=== PATIENT | male | born 1955 | race Caucasian/White ===

== ENCOUNTER 2016-12-27 07:57 | Outpatient (CLI) | payer MEDICARE, MEDICAID ==
--- NOTE | 2016-12-27 09:59 | XRAY Report ---
TWO VIEW CHEST: 12/27/2016 CLINICAL INDICATION: Hypoxemia, COPD. COMPARISON: 10/06/2016. FINDINGS: Frontal and lateral views of the chest again demonstrate a normal cardiac silhouette. Shaila re emphysema is again seen. No new consolidation, effusion, or pneumothorax is present. IMPRESSION: STABLE EMPHYSEMA. NO EVIDENCE OF ACUTE CARDIOPULMONARY DISEASE. JOB #: [id number] EXT JOB #:[id number]
== END 2016-12-27 07:58 | disposition home or self-care (01) ==
LOC: DI 07:57
PROVIDERS: ATTEND Family Medicine
DX: J43.9 Emphysema, unspecified (principal)
CPT/HCPCS: 71020

== ENCOUNTER 2016-12-28 16:41 | Outpatient (CLI) | payer MEDICARE, MEDICAID | END 2016-12-28 16:42 | disposition EMS.NT | LOC: EMS 16:41 | PROVIDERS: ATTEND Surgery | DX: R07.89 Other chest pain (principal); R42 Dizziness and giddiness; T63.441A Toxic effect of venom of bees, accidental (unintentional), initial encounter ==

== ENCOUNTER 2017-03-09 08:00 | Outpatient (CLI) | payer MEDICARE, MEDICAID ==
[2017-03-09 13:09] LABS: BASOPHILS % (AUTO) 0.2 %; EOSINOPHILS # (AUTO) 0.2 10^3/uL (0.0-0.7); EOSINOPHILS % (AUTO) 1.4 %; HCT - HEMATOCRIT 42.1 % (42.0-52.0); HGB - HEMOGLOBIN 14.3 g/dL (14.0-18.0); LYMPHOCYTES # (AUTO) 3.5 10^3/uL (1.5-3.5); LYMPHOCYTES % (AUTO) 25.7 %; MEAN CORPUSCULAR HEMOGLOBIN 30.2 pg (27.0-31.0); MEAN CORPUSCULAR HGB CONC 33.9 g/dL (32.0-36.0); MEAN CORPUSCULAR VOLUME 89.3 fL (80.0-94.0); MEAN PLATELET VOLUME 6.9 fL (7.4-11.4); MONOCYTES # (AUTO) 1.4 10^3/uL (0.0-1.0); MONOCYTES % (AUTO) 10.6 %; NEUTROPHILS # (AUTO) 8.3 10^3/uL (1.5-6.6); NEUTROPHILS % (AUTO) 62.1 %; NUCLEATED RED BLOOD CELLS AUTO 0.1 /100WBC; RED BLOOD COUNT 4.72 10^6/uL (4.70-6.10); RED CELL DISTRIBUTION WIDTH 14.2 % (12.0-15.0); UNCORRECTED WHITE BLOOD COUNT 13.4 x10^3/uL; WHITE BLOOD COUNT 13.4 x10^3/uL (4.8-10.8)
[2017-03-09 13:16] LABS: ALBUMIN/GLOBULIN RATIO 1.8 (1.0-2.2); BILIRUBIN,TOTAL 0.4 mg/dL (0.2-1.0); CALCIUM 9.5 mg/dL (8.5-10.3); CREATININE 0.8 mg/dL (0.6-1.2)
== END 2017-03-09 08:01 | disposition home or self-care (01) ==
LOC: LAB.WCP 08:00
PROVIDERS: ATTEND Physician Assistant Medical
DX: J44.1 Chronic obstructive pulmonary disease with (acute) exacerbation (principal)
CPT/HCPCS: 36415; 80053; 85025; 87070; 87205

== ENCOUNTER 2017-04-05 10:21 | Outpatient (CLI) | payer MEDICARE, MEDICAID ==
[2017-04-05 10:52] LABS: BASOPHILS % (AUTO) 0.5 %; EOSINOPHILS # (AUTO) 0.1 10^3/uL (0.0-0.7); EOSINOPHILS % (AUTO) 0.6 %; HGB - HEMOGLOBIN 14.3 g/dL (14.0-18.0); LYMPHOCYTES # (AUTO) 1.5 10^3/uL (1.5-3.5); LYMPHOCYTES % (AUTO) 16.9 %; MEAN CORPUSCULAR HEMOGLOBIN 31.1 pg (27.0-31.0); MEAN CORPUSCULAR HGB CONC 34.9 g/dL (32.0-36.0); MEAN PLATELET VOLUME 6.7 fL (7.4-11.4); MONOCYTES # (AUTO) 0.9 10^3/uL (0.0-1.0); MONOCYTES % (AUTO) 10.1 %; NEUTROPHILS # (AUTO) 6.2 10^3/uL (1.5-6.6); NEUTROPHILS % (AUTO) 71.9 %; PLT - PLATELET COUNT 303 10^3/uL (130-450); RED CELL DISTRIBUTION WIDTH 13.8 % (12.0-15.0); WHITE BLOOD COUNT 8.7 x10^3/uL (4.8-10.8)
[2017-04-05 11:21] LABS: ALBUMIN 4.3 g/dL (3.2-5.5); ALBUMIN/GLOBULIN RATIO 1.4 (1.0-2.2); BILIRUBIN,TOTAL 0.6 mg/dL (0.2-1.0); CALCIUM 9.1 mg/dL (8.5-10.3); CREATININE 0.8 mg/dL (0.6-1.2); TOTAL PROTEIN 7.3 g/dL (6.7-8.2)
[2017-04-05] MEDS ORDERED: IOPAMIDOL-300 100 ML VIAL ONE (14:36)
[2017-04-05] MEDS ORDERED: IOPAMIDOL-300 100 ML VIAL IVP ONE (15:07)
--- NOTE | 2017-04-06 09:03 | CT Report ---
REVISED: THIS REPORT WAS ORIGINALLY SIGNED ON 04/06/2017 @ 1249. NO CHANGES WERE MADE TO THE REPORT. THE ORIGINAL [facility] REQUISITION WAS REPRINTED ON 12/2017. DATE OF SERVICE: 04/05/2017 CT ANGIO CHEST: 04/05/2017 COMPARISON: CT angio chest 04/04/2015. INDICATION: Tachycardia, COPD and hypoxemia. Acute exacerbation. TECHNIQUE: Axial imaging of the chest was performed with intravenous contrast bolus imaging of the pulmonary arteries using 75 mL of Isovue 300. Coronal and sagittal reformats. In accordance with CT protocol optimization, one or more of the following dose reduction techniques were utilized for this exam: Automated exposure control, adjustment of mA and/or KV based on patient size, or use of iterative reconstructive technique. FINDINGS: There are severe emphysematous changes of the lungs similar to the prior exam. There is a multilobular mass of the right lower lobe. It is much smaller and less conspicuous than on the prior exam. Two focal elements measure 2.2 x 2.0 cm and 3.0 x 0.7 cm, respectively. This is significantly decreased from multilobular mass on the prior exam with elements measuring up to 3.9 cm. No evidence of aortic dissection or pulmonary embolism. No pericardial effusion. No mediastinal or hilar adenopathy. There is a right adrenal nodule measuring 2.2 x 2.0 cm. This is a stable finding. Limited upper abdomen is otherwise grossly unremarkable. IMPRESSION: No evidence of pulmonary embolism or acute aortic syndrome. Severe emphysematous changes are noted as before. Right lower lobe multilobular mass has much smaller elements and is much less conspicuous than on the prior exam. Correlate clinically. Right adrenal nodule is nonspecific, but stable in size over approximately 2 years. TD: 04/05/2017 21:28 MTDD
== END 2017-04-05 10:22 | disposition home or self-care (01) ==
LOC: DI 10:21
PROVIDERS: ATTEND Physician Assistant Medical
DX: J43.9 Emphysema, unspecified (principal); R91.8 Other nonspecific abnormal finding of lung field
CPT/HCPCS: 36415; 71275; 80053; 85025; Q9967

== ENCOUNTER 2017-04-12 15:48 | Outpatient (CLI) | payer MEDICARE, MEDICAID | END 2017-04-12 15:49 | disposition critical access hospital (66) | LOC: EMS 15:48 | PROVIDERS: ATTEND Surgery | DX: R06.02 Shortness of breath (principal); R11.2 Nausea with vomiting, unspecified; R05 Cough | CPT/HCPCS: A0425; A0429 ==

== ENCOUNTER 2017-05-01 08:50 | Outpatient (CLI) | payer MEDICARE, MEDICAID | END 2017-05-01 08:51 | disposition critical access hospital (66) | LOC: EMS 08:50 | PROVIDERS: ATTEND Surgery | DX: R11.2 Nausea with vomiting, unspecified (principal); R06.02 Shortness of breath | CPT/HCPCS: A0425; A0427 ==

== ENCOUNTER 2017-05-01 09:17 | Emergency (ER) | payer MEDICAID, MEDICARE ==
--- NOTE | 2017-05-01 09:30 | ED Physician Documentation ---
History of Present Illness - Stated complaint Stated Complaint: SOA - Chief complaint Chief Complaint: General - History obtained from History obtained from: Patient, EMS - History of Present Illness Timing: How many days ago (2) - Additonal information Additional information: 61-year-old male with oxygen dependent COPD lives in a small room with a propane open flame heater running. He has developed nausea and vomiting over the past 2 days. He states that he is barely able to move without vomiting. He does not think his cough is changed at all he does not believe his shortness of breath is changed at all. He is on oxygen continuously at home. He has not had any diarrhea he has had a decreased appetite. Review of Systems Constitutional: reports: Myalgias, Fatigue. denies: Fever Eyes: denies: Decreased vision Ears: denies: Ear pain Nose: reports: Congestion. denies: Rhinorrhea / runny nose Throat: denies: Sore throat Cardiac: denies: Chest pain / pressure, Palpitations Respiratory: reports: Dyspnea, Cough GI: reports: Abdominal Pain, Nausea, Vomiting. denies: Diarrhea : denies: Dysuria, Frequency Skin: denies: Rash Musculoskeletal: denies: Neck pain, Back pain, Extremity pain Neurologic: denies: Generalized weakness, Focal weakness, Numbness PD PAST MEDICAL HISTORY - Past Medical History Past Medical History: Yes Cardiovascular: None, High cholesterol Respiratory: COPD Neuro: TIA Endocrine/Autoimmune: None GI: None : None Psych: Depression, Anxiety Musculoskeletal: Chronic back pain, Other Derm: None - Past Surgical History Past Surgical History: Yes - Present Medications Home Medications: Ambulatory Orders Medication Instructions Recorded Confirmed Albuterol Sulfate [Proair Hfa] 8.5 gm IH PRN 04/04/15 04/04/15 Amitriptyline HCl 150 mg PO QPM 04/04/15 04/04/15 Azithromycin [Zithromax] 250 mg PO DAILY #6 tablet 04/04/15 Budesonide/Formoterol Fumarate 1 inh INH DAILY 04/04/15 04/04/15 [Symbicort 160-4.5 Mcg Inhaler] Carisoprodol 350 mg PO Q6H 04/04/15 04/04/15 Escitalopram [Lexapro] 20 mg PO DAILY 04/04/15 04/04/15 Eszopiclone 3 mg PO PRN 04/04/15 04/04/15 Gabapentin 600 mg PO BID 04/04/15 04/04/15 Hydrocodone/Acetaminophen 1 tab PO PRN 04/04/15 04/04/15 [Hydrocodon-Acetaminoph 7.5-325] Quetiapine Fumarate [Seroquel Xr] 50 mg PO DAILY 04/04/15 04/04/15 Simvastatin 20 mg PO QPM 04/04/15 04/04/15 Tiotropium [place] [Spiriva] 18 mcg IH DAILY 04/04/15 04/04/15 LORazepam [Ativan] 0.5 mg PO Q6H PRN #7 tablet 04/12/17 predniSONE [Prednisone] 40 mg PO DAILY #10 tablet 04/12/17 Lorazepam [Ativan] 1 mg PO Q6HR PRN #20 tablet 05/01/17 Ondansetron Odt [Zofran] 4 mg TL Q6H PRN #10 tablet 05/01/17 - Allergies Allergies/Adverse Reactions: Allergies Allergy/AdvReac Type Severity Reaction Status Date / Time No Known Drug Allergies Allergy Verified 04/04/15 06:20 - Social History Does the pt smoke?: No Smoking Status: Never smoker Does the pt drink ETOH?: No Does the pt have substance abuse?: No - Immunizations Immunizations are current?: Yes - POLST Patient has POLST: No PD ED PE NORMAL - Vitals Vital signs reviewed: Yes (tachy and hypertensive ) - General General: Alert and oriented X 3, Well developed/nourished, Other (The patient has n/c oxygen in place and is doing persed lipped breathing. ) - HEENT HEENT: Atraumatic, PERRL, EOMI, Ears normal, Other (mucous membranes are dry) - Neck Neck: Supple, no meningeal sign - Cardiac Cardiac: No murmur, Other (tachy to 110) - Respiratory Respiratory: Other (tachypneic at rest with diminished breath sounds bilaterally. ) - Abdomen Abdomen: Soft, Non tender - Back Back: No CVA TTP, No spinal TTP - Derm Derm: Normal color, Warm and dry, No rash - Extremities Extremities: No deformity, No edema - Neuro Neuro: No motor deficit, No sensory deficit Eye Opening: Spontaneous Motor: Obeys Commands Verbal: Oriented GCS Score: 15 - Psych Psych: Normal mood, Normal affect Results - Vitals Vitals: Vital Signs - 24 hr 05/01/17 05/01/17 05/01/17 09:21 11:03 12:24 Temperature 36.9 C Heart Rate 107 H 102 H 94 Respiratory 20 18 14 Rate Blood Pressure 150/99 H 118/81 H 116/78 O2 Saturation 100 98 100 Oxygen O2 Source Nasal cannula - Labs Labs: Laboratory Tests 05/01/17 05/01/17 05/01/17 10:08 10:08 10:08 WBC 7.0 RBC 4.24 L Hgb 13.1 L Hct 37.7 L MCV 89.1 MCH 30.9 MCHC 34.7 RDW 14.2 Plt Count 258 MPV 6.5 L Neut # 4.3 Lymph # 1.7 Kay # 0.8 Eos # 0.1 Baso # 0.0 Absolute Nucleated RBC 0.00 Nucleated RBC % 0.0 VBG Total Hgb VBG Oxyhemoglobin VBG Carboxyhemoglobin VBG Methemoglobin Sodium 138 Potassium 4.1 Chloride 104 Carbon Dioxide 24 Anion Gap 10.0 BUN 11 Creatinine 0.8 Estimated GFR (MDRD) 99 Glucose 88 Calcium 8.5 Total Bilirubin 0.7 AST 22 ALT 18 Alkaline Phosphatase 36 L Troponin I < 0.04 Total Protein 6.3 L Albumin 3.9 Globulin 2.4 Albumin/Globulin Ratio 1.6 Lipase 22 Influenza A (Rapid) Influenza B (Rapid) Influenza Types A,B Ag 05/01/17 05/01/17 10:08 10:43 WBC RBC Hgb Hct MCV MCH MCHC RDW Plt Count MPV Neut # Lymph # Kay # Eos # Baso # Absolute Nucleated RBC Nucleated RBC % VBG Total Hgb 13.7 VBG Oxyhemoglobin 59 L VBG Carboxyhemoglobin 1.4 VBG Methemoglobin 0.3 Sodium Potassium Chloride Carbon Dioxide Anion Gap BUN Creatinine Estimated GFR (MDRD) Glucose Calcium Total Bilirubin AST ALT Alkaline Phosphatase Troponin I Total Protein Albumin Globulin Albumin/Globulin Ratio Lipase Influenza A (Rapid) NEG Influenza B (Rapid) NEG Influenza Types A,B Ag - Procedures - IVC sono (time) 6573 Bedside IVC sono: IVC measures (cm) (1.12), IVC collapsed c insp (cm) (complete) , Dehydration (est 1.5 liters) PD MEDICAL DECISION MAKING - ED course Complexity details: reviewed old records, reviewed results, re-evaluated patient , considered differential, d/w patient ED course: 61-year-old male oxygen dependent COPD with acute vomiting and dehydration is brought to the emergency department by ambulance and IV saline is begun. He feels much improved after a liter of saline and some Zofran. We will send him home with some Zofran and instructions on dehydration and gastroenteritis. Today's visit was not related to lung disease. Departure - Departure Disposition: Home, Self Care Clinical Impression: Dehydration, Gastroenteritis, Anxiety Condition: Stable Instructions: ED Stress React, ED Dehydration, ED Gastroenteritis Viral Follow-Up: Antonio Boles MD [Primary Care Provider] - Prescriptions: Lorazepam [Ativan] 1 mg PO Q6HR PRN #20 tablet PRN Reason: Anxiety Ondansetron Odt [Zofran] 4 mg TL Q6H PRN #10 tablet PRN Reason: Nausea / Vomiting Discharge Date/Time: 05/01/17 15:34
[2017-05-01] MEDS ORDERED: SODIUM CHLORIDE 0.9% 1,000 ML IV ONE (09:36)
--- NOTE | 2017-05-01 10:12 | XRAY Report ---
EXAM: CHEST RADIOGRAPHY EXAM DATE: 05/01/2017 10:01 AM. CLINICAL HISTORY: Diminished breath sounds/dyspnea. COMPARISON: 04/12/2017 TECHNIQUE: 2 views. FINDINGS: Lungs/Pleura: No focal opacities evident. No pleural effusion. No pneumothorax. Hyperexpanded volumes . Mediastinum: Heart and mediastinal contours are unremarkable. Other: Flattening of the hemidiaphragms. No acute bony pathology. IMPRESSION: Stable emphysematous changes of the lungs without superimposed acute findings. [facility] Referring Provider Line: [phone] SITE ID: [id number]
[2017-05-01 10:19] LABS: BASOPHILS % (AUTO) 0.6 %; EOSINOPHILS # (AUTO) 0.1 10^3/uL (0.0-0.7); EOSINOPHILS % (AUTO) 1.4 %; HGB - HEMOGLOBIN 13.1 g/dL (14.0-18.0); LYMPHOCYTES # (AUTO) 1.7 10^3/uL (1.5-3.5); LYMPHOCYTES % (AUTO) 24.9 %; MEAN CORPUSCULAR HEMOGLOBIN 30.9 pg (27.0-31.0); MEAN CORPUSCULAR HGB CONC 34.7 g/dL (32.0-36.0); MEAN CORPUSCULAR VOLUME 89.1 fL (80.0-94.0); MEAN PLATELET VOLUME 6.5 fL (7.4-11.4); MONOCYTES # (AUTO) 0.8 10^3/uL (0.0-1.0); MONOCYTES % (AUTO) 11.5 %; NEUTROPHILS # (AUTO) 4.3 10^3/uL (1.5-6.6); NEUTROPHILS % (AUTO) 61.6 %; PLT - PLATELET COUNT 258 10^3/uL (130-450); RED BLOOD COUNT 4.24 10^6/uL (4.70-6.10); RED CELL DISTRIBUTION WIDTH 14.2 % (12.0-15.0)
[2017-05-01] MEDS ORDERED: LORazepam 2 MG/ML VIAL IVP STA (10:23)
[2017-05-01 10:31] LABS: ALBUMIN 3.9 g/dL (3.2-5.5); ALBUMIN/GLOBULIN RATIO 1.6 (1.0-2.2); BILIRUBIN,TOTAL 0.7 mg/dL (0.2-1.0); CALCIUM 8.5 mg/dL (8.5-10.3); CREATININE 0.8 mg/dL (0.6-1.2); TOTAL PROTEIN 6.3 g/dL (6.7-8.2)
[2017-05-01 12:26] VITALS: BP 116/78
[2017-05-01] MEDS ORDERED: ONDANSETRON ODT 4 MG TABLET TL STA (13:15)
== END 2017-05-01 15:34 | disposition home or self-care (01) ==
LOC: EDUNIT# → ED 09:17
DX: E86.0 Dehydration (principal); K52.9 Noninfective gastroenteritis and colitis, unspecified; F41.9 Anxiety disorder, unspecified; J44.9 Chronic obstructive pulmonary disease, unspecified; Z99.81 Dependence on supplemental oxygen; E78.5 Hyperlipidemia, unspecified
CPT/HCPCS: 36415; 71046; 80053; 82375; 83690; 84484; 85025; 87275; 87276; 96361; 96374; 99284; J2060; Q0162

== ENCOUNTER 2017-05-10 12:25 | Day surgery (SDC) | payer MEDICARE, MEDICAID ==
[2017-05-10] MEDS ORDERED: LACTATED RINGERS 1,000 ML IV ONE (13:24)
[2017-05-10] MEDS ORDERED: LIDOCAINE-MPF 2% 5 ML VIAL IM ONE (14:05)
[2017-05-10] MEDS ORDERED: PROPOFOL 200 MG/20 ML VIAL IVP ONE (14:05)
[2017-05-10 14:11] VITALS: BP 112/75
== END 2017-05-10 12:26 | disposition home or self-care (01) ==
LOC: SDS 12:25
PROVIDERS: ATTEND Surgery
PROC: 0DBN8ZZ Excision of Sigmoid Colon, Via Natural or Artificial Opening Endoscopic (ICD-10-PCS; 2017-05-10)
PROC: 0DBK8ZZ Excision of Ascending Colon, Via Natural or Artificial Opening Endoscopic (ICD-10-PCS; principal; 2017-05-10 14:00)
DX: Z12.11 Encounter for screening for malignant neoplasm of colon (principal); D12.2 Benign neoplasm of ascending colon; D12.5 Benign neoplasm of sigmoid colon; K57.30 Diverticulosis of large intestine without perforation or abscess without bleeding; K64.8 Other hemorrhoids; J44.9 Chronic obstructive pulmonary disease, unspecified; Z99.81 Dependence on supplemental oxygen; Z87.891 Personal history of nicotine dependence; E78.5 Hyperlipidemia, unspecified
CPT/HCPCS: 45380; J7120

== ENCOUNTER 2017-05-29 08:20 | Outpatient (CLI) | payer MEDICARE, MEDICAID | END 2017-05-29 08:21 | disposition home or self-care (01) | LOC: DI 08:20 | PROVIDERS: ATTEND Physician Assistant Medical | DX: R00.0 Tachycardia, unspecified (principal) | CPT/HCPCS: 93306 ==

== ENCOUNTER 2017-06-21 07:36 | Outpatient (CLI) | payer MEDICARE, MEDICAID ==
--- NOTE | 2017-06-21 10:54 | MRI Report ---
EXAM: MRI CERVICAL SPINE WITHOUT CONTRAST EXAM DATE: 06/21/2017 08:33 AM. CLINICAL HISTORY: Cervical disk disorder with radiculopathy. COMPARISONS: None. TECHNIQUE: Multiplanar, multisequence T1-weighted and fluid-sensitive sequences of the cervical spine without contrast. Other: None. FINDINGS: Neurologic Structures: The visualized posterior fossa structures are unremarkable. No signal abnormal ity in the visualized spinal cord. Alignment: There is flattening of the cervical lordosis. Bone Marrow: No gross fractures or bone lesions. No marrow edema. Interspace Levels/Facets: C1-C2: Unremarkable. C2-C3: Moderate right and mild left facet joint osteoarthritis. The foramina are patent. C3-C4: There is disk desiccation and loss of disk height. There is a broad-based posterior disk osteo phyte complex causing mild canal narrowing. There is minimal facet joint osteoarthritis. There is min imal bilateral foraminal narrowing. C4-C5: There is a broad-based posterior disk bulge with minimal facet joint osteoarthritis. The findi ngs cause minimal canal and foraminal narrowing. C5-C6: Disk desiccation and loss of disk height. There is a broad-based posterior disk osteophyte com plex. There is mild central canal narrowing, and moderate bilateral foraminal narrowing. C6-C7: There is disk desiccation and loss of disk height. There is a broad-based posterior discussed heart complex causing mild canal narrowing. There is mild bilateral foraminal narrowing. C7-T1: Unremarkable. Musculature: Normal. No edema or fatty atrophy. Other: The paravertebral and prevertebral soft tissues are normal. IMPRESSION: 1. Moderate degenerative change throughout the cervical spine. 2. Flattening of the cervical lordosis. 3. C2-C3: Moderate right and mild left facet joint osteoarthritis. The foramina are patent. 4. C3-C4: There is a broad-based posterior disk osteophyte complex causing mild canal narrowing. Ther e is minimal facet joint osteoarthritis. There is minimal bilateral foraminal narrowing. 5. C4-C5: There is a broad-based posterior disk bulge with minimal facet joint osteoarthritis. The fi ndings cause minimal canal and foraminal narrowing. 6. C5-C6: There is a broad-based posterior disk osteophyte complex. There is mild central canal narro wing, and moderate bilateral foraminal narrowing. 7. C6-C7: There is a broad-based posterior discussed heart complex causing mild canal narrowing. Ther e is mild bilateral foraminal narrowing. [facility] Referring Provider Line: [phone] SITE ID: [id number]
== END 2017-06-21 07:37 | disposition home or self-care (01) ==
LOC: DI 07:36
PROVIDERS: ATTEND Family Medicine
DX: M47.892 Other spondylosis, cervical region (principal); M50.31 Other cervical disc degeneration, high cervical region
CPT/HCPCS: 72141

== ENCOUNTER 2017-07-16 07:40 | Outpatient (CLI) | payer MEDICARE, MEDICAID ==
--- NOTE | 2017-07-16 09:28 | Ultrasound Report ---
COMPLETE ABDOMINAL ULTRASOUND: 07/16/2017 CLINICAL INDICATION: Right-sided pain. TECHNIQUE: Real-time scanning was performed with security representative static images obtained. FINDINGS: The liver measures 12.3 cm. An 8 mm cyst is incidentally noted in the left lobe. No solid hepatic lesion or intrahepatic biliary dilatation is appreciated. The common bile duct measures 7 mm. The gallbladder is normal, as is the visualized pancreas. The right kidney measures 10.3 cm, and is unremarkable. The left kidney measures 10.2 cm , and demonstrates an 1.6 cm complex cyst, stable from previous CTs of 04/05/2017 and 04/04/2015. The spleen measures 8.2 cm, and is unremarkable. The abdominal aorta is normal in caliber. The inferior vena cava is unremarkable. Scanning of the right lower quadrant, at the site of maximal tenderness identified by the patient, demonstrates unremarkable bowel. IMPRESSION: INCIDENTAL CYSTS. TD: 07/16/2017 09:27 HOMERO
== END 2017-07-16 07:41 | disposition home or self-care (01) ==
LOC: DI 07:40
PROVIDERS: ATTEND Physician Assistant Medical
DX: R10.31 Right lower quadrant pain (principal)
CPT/HCPCS: 76700

== ENCOUNTER 2017-09-05 11:01 | Outpatient (CLI) | payer MEDICARE, MEDICAID ==
[2017-09-05 18:10] LABS: ALBUMIN 4.1 g/dL (3.2-5.5); ALBUMIN/GLOBULIN RATIO 1.4 (1.0-2.2); BILIRUBIN,TOTAL 0.6 mg/dL (0.2-1.0); CALCIUM 8.9 mg/dL (8.5-10.3); CREATININE 0.8 mg/dL (0.6-1.2); MAGNESIUM 2.1 mg/dL (1.7-2.8)
== END 2017-09-05 11:02 | disposition home or self-care (01) ==
LOC: LAB.F 11:01
PROVIDERS: ATTEND Physician Assistant Medical
DX: R25.2 Cramp and spasm (principal)
CPT/HCPCS: 36415; 80053; 83735

== ENCOUNTER 2017-10-30 08:57 | Outpatient (CLI) | payer MEDICARE, MEDICAID ==
--- NOTE | 2017-10-30 18:08 | MRI Report ---
Procedure Date: 10/30/2017 Accession Number: [id number] / [id number] Procedure: MRI - Brain W/O CPT Code: FULL RESULT: EXAM: MRI BRAIN WITHOUT CONTRAST EXAM DATE: 10/30/2017 10:03 AM. CLINICAL HISTORY: TIA, headache. COMPARISON: None. TECHNIQUE: Multiplanar, multisequence T1-weighted and fluid-sensitive MR sequences of the brain were performed. Sequences optimized for routine evaluation. Other: None. IV Contrast: None. FINDINGS: No cerebellar tonsillar ectopia is present. No abnormal diffusion signal or magnetic susceptibility is identified in the brain parenchyma. Ventricles and sulci are within normal limits for the patient's age. There is patchy FLAIR hyperintense signal in the right greater than left gage. Subcortical and deep white matter FLAIR hyperintensities are seen scattered throughout the cerebral hemisphere white matter. There is a frontal lobe predominance. An expected flow-void is seen in the major intracranial vessels at the skull base. An expected flow-void is seen in the superior sagittal sinus. No mass is present in either orbit. No mass is present in either Meckel's cave. No abnormal T1 shortening is present within the brain parenchyma. There are areas of T2 and T1 hyperintense signal involving mastoid air cells posteriorly on the left. There is no bony expansion to suggest cholesterol granuloma formation. This could reflect proteinaceous material in these left mastoid air cells. Paranasal sinus mucosal thickening is seen, greatest in the right sphenoid air cell. IMPRESSION: 1. FLAIR hyperintensities are seen in the cerebral hemisphere white matter bilaterally and in the gage. These are nonspecific and are commonly seen secondary to small vessel ischemic change. 2. No intracranial mass. 3. No acute CVA is present on diffusion weighted images. 4. Paranasal sinus mucosal thickening is seen in scattered paranasal sinuses, greatest in the right sphenoid air cell. 5. Suspect proteinaceous material in mastoid air cells on the left. [facility]
== END 2017-10-30 08:58 | disposition home or self-care (01) ==
LOC: DI 08:57
PROVIDERS: ATTEND Physician Assistant Medical
DX: G45.9 Transient cerebral ischemic attack, unspecified (principal); R51 Headache
CPT/HCPCS: 70551

== ENCOUNTER 2017-11-23 14:08 | Outpatient (CLI) | payer MEDICARE, MEDICAID ==
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
== END 2017-11-23 14:09 | disposition home or self-care (01) ==
LOC: PC 14:08
PROVIDERS: ATTEND Nurse Practitioner
DX: Z51.5 Encounter for palliative care (principal); J44.9 Chronic obstructive pulmonary disease, unspecified; G89.4 Chronic pain syndrome; M51.86 Other intervertebral disc disorders, lumbar region; R25.2 Cramp and spasm; F41.9 Anxiety disorder, unspecified; R63.0 Anorexia; R63.4 Abnormal weight loss; R68.81 Early satiety; F51.04 Psychophysiologic insomnia; F32.9 Major depressive disorder, single episode, unspecified; M50.10 Cervical disc disorder with radiculopathy, unspecified cervical region; F19.11 Other psychoactive substance abuse, in remission; Z79.899 Other long term (current) drug therapy; Z99.81 Dependence on supplemental oxygen; Z79.51 Long term (current) use of inhaled steroids; Z79.891 Long term (current) use of opiate analgesic; Z66 Do not resuscitate; Z86.73 Personal history of transient ischemic attack (TIA), and cerebral infarction without residual deficits; Z87.891 Personal history of nicotine dependence
CPT/HCPCS: 99345

== ENCOUNTER 2017-12-03 11:10 | Emergency (ER) | payer MEDICARE, MEDICAID ==
--- NOTE | 2017-12-03 12:16 | XRAY Report ---
Reason: injury/pain Procedure Date: 12/03/2017 Accession Number: [id number] / [id number] Procedure: XR - Foot 3 View RT CPT Code: FULL RESULT: EXAM: RIGHT FOOT RADIOGRAPHY EXAM DATE: 12/03/2017 11:46 AM. CLINICAL HISTORY: Injury/pain. COMPARISON: None available. TECHNIQUE: 3 views. FINDINGS: Bones: There is a linear lucency through the mid shaft of the proximal phalanx of the small toe. Joints: Normal. No subluxations. Soft Tissues: Normal. No soft tissue swelling. IMPRESSION: Nondisplaced fracture through the midshaft of the small toe proximal phalanx. RADIA
[2017-12-03] MEDS ORDERED: HYDROcod/ACETAM 5/325 MG TABLET PO STA (12:26)
[2017-12-03] MEDS ORDERED: LORazepam 0.5 MG TABLET PO STA (12:27)
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
[2017-12-03 12:53] VITALS: BP 121/86
== END 2017-12-03 12:48 | disposition home or self-care (01) ==
LOC: ED 11:10
DX: S92.514A Nondisplaced fracture of proximal phalanx of right lesser toe(s), initial encounter for closed fracture (principal); Z87.891 Personal history of nicotine dependence; W20.8XXA Other cause of strike by thrown, projected or falling object, initial encounter; Y93.A1 Activity, exercise machines primarily for cardiorespiratory conditioning
CPT/HCPCS: 73630; 99283; A9270

== ENCOUNTER 2018-01-04 08:00 | Outpatient (CLI) | payer MEDICARE, MEDICAID | END 2018-01-04 08:01 | disposition home or self-care (01) | LOC: LAB.R 08:00 | PROVIDERS: ATTEND Physician Assistant Medical | DX: L02.91 Cutaneous abscess, unspecified (principal) | CPT/HCPCS: 87070; 87205 ==

== ENCOUNTER 2018-01-09 17:24 | Outpatient (CLI) | payer MEDICARE, MEDICAID ==
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
== END 2018-01-09 17:25 | disposition home or self-care (01) ==
LOC: PC 17:24
PROVIDERS: ATTEND Nurse Practitioner
DX: Z51.5 Encounter for palliative care (principal); J44.9 Chronic obstructive pulmonary disease, unspecified; Z99.81 Dependence on supplemental oxygen; R53.81 Other malaise; G89.29 Other chronic pain; M54.5 Low back pain; F41.9 Anxiety disorder, unspecified; R63.0 Anorexia; G47.00 Insomnia, unspecified; R25.2 Cramp and spasm; M20.092 Other deformity of left finger(s); Z66 Do not resuscitate
CPT/HCPCS: 99348

== ENCOUNTER 2018-02-22 14:50 | Outpatient (CLI) | payer MEDICARE, MEDICAID ==
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
== END 2018-02-22 14:51 | disposition home or self-care (01) ==
LOC: PC 14:50
PROVIDERS: ATTEND Nurse Practitioner
DX: Z51.5 Encounter for palliative care (principal); J44.9 Chronic obstructive pulmonary disease, unspecified; Z99.81 Dependence on supplemental oxygen; R53.81 Other malaise; R06.00 Dyspnea, unspecified; F32.9 Major depressive disorder, single episode, unspecified; F41.9 Anxiety disorder, unspecified; G89.29 Other chronic pain; M54.5 Low back pain; R63.0 Anorexia; F51.04 Psychophysiologic insomnia; Z66 Do not resuscitate
CPT/HCPCS: 99348

== ENCOUNTER 2018-03-18 10:57 | Outpatient (CLI) | payer MEDICARE, MEDICAID | END 2018-03-18 10:58 | disposition home or self-care (01) | LOC: LAB.F 10:57 | PROVIDERS: ATTEND Physician Assistant Medical | DX: R53.83 Other fatigue (principal); F41.8 Other specified anxiety disorders | CPT/HCPCS: 36415; 84443 ==

== ENCOUNTER 2018-04-18 10:20 | Outpatient (CLI) | payer MEDICARE, MEDICAID ==
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
== END 2018-04-18 10:21 | disposition home or self-care (01) ==
LOC: PC 10:20
PROVIDERS: ATTEND Nurse Practitioner
DX: Z51.5 Encounter for palliative care (principal); J44.9 Chronic obstructive pulmonary disease, unspecified; Z99.81 Dependence on supplemental oxygen; F41.8 Other specified anxiety disorders; G89.29 Other chronic pain; M50.10 Cervical disc disorder with radiculopathy, unspecified cervical region; M54.5 Low back pain; F51.04 Psychophysiologic insomnia; R25.2 Cramp and spasm; R26.9 Unspecified abnormalities of gait and mobility; Z66 Do not resuscitate; Z79.891 Long term (current) use of opiate analgesic; Z79.51 Long term (current) use of inhaled steroids; Z87.828 Personal history of other (healed) physical injury and trauma
CPT/HCPCS: 99349

== ENCOUNTER 2018-05-27 12:15 | Outpatient (CLI) | payer MEDICARE, MEDICAID ==
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
== END 2018-05-27 12:16 | disposition home or self-care (01) ==
LOC: PC 12:15
PROVIDERS: ATTEND Nurse Practitioner
DX: Z51.5 Encounter for palliative care (principal); J44.9 Chronic obstructive pulmonary disease, unspecified; F41.8 Other specified anxiety disorders; T40.4X1A Poisoning by other synthetic narcotics, accidental (unintentional), initial encounter; G89.4 Chronic pain syndrome; M54.5 Low back pain; T14.90XS Injury, unspecified, sequela; M62.838 Other muscle spasm; F51.04 Psychophysiologic insomnia; M50.10 Cervical disc disorder with radiculopathy, unspecified cervical region; Z99.81 Dependence on supplemental oxygen; Z87.01 Personal history of pneumonia (recurrent); Z66 Do not resuscitate; Z79.899 Other long term (current) drug therapy
CPT/HCPCS: 99350

== ENCOUNTER 2018-06-03 14:00 | Outpatient (CLI) | payer MEDICARE, MEDICAID ==
--- NOTE | 2018-06-03 15:29 | XRAY Report ---
Reason: COUGH, SHORTNESS OF BREATH Procedure Date: 06/03/2018 Accession Number: [id number] / [id number] Procedure: XR - Chest 2 View X-Ray CPT Code: 04673 FULL RESULT: EXAM: CHEST RADIOGRAPHY EXAM DATE: 06/03/2018 03:15 PM. CLINICAL HISTORY: COUGH, SHORTNESS OF BREATH. COMPARISON: CHEST 2 VIEW 05/01/2017 9:41 AM. TECHNIQUE: 2 views. FINDINGS: Lungs/Pleura: No focal opacities evident. No pleural effusion. No pneumothorax. High lung volumes and flattening of diaphragms with a paucity of overall lung markings, typical of COPD. Mediastinum: Heart and mediastinal contours are unremarkable. Other: None. IMPRESSION: Appearance suggestive of COPD likely with bullous disease. Loss of lung parenchyma in this clinical setting decreases sensitivity for pneumonia. RADIA
== END 2018-06-03 14:01 | disposition home or self-care (01) ==
LOC: DI 14:00
PROVIDERS: ATTEND Physician Assistant Medical
DX: R05 Cough (principal); R06.02 Shortness of breath; R91.8 Other nonspecific abnormal finding of lung field
CPT/HCPCS: 71046

== ENCOUNTER 2018-06-22 13:59 | Emergency (ER) | payer MEDICARE, MEDICAID ==
[2018-06-22] MEDS ORDERED: cefTRIAXone 1 GM in SODIUM CHLORIDE 0.9% MINIBAG 100 ML IV STA (14:11)
[2018-06-22] MEDS ORDERED: methylPREDNISolone SUCCINATE 125 MG/2 ML VIAL IVP STA (14:11)
[2018-06-22] MEDS ORDERED: IPRATROPIUM/ALBUTEROL 3 ML NEB INH STA (14:11)
--- NOTE | 2018-06-22 14:14 | ED Physician Documentation ---
PD HPI DYSPNEA - Stated complaint Stated Complaint: SOA - Chief complaint Chief Complaint: Resp - History obtained from History obtained from: Patient - History of Present Illness Timing - onset: Last night (62-year-old gentleman with history of severe COPD presents with increased work of breathing and fever since last night with a cough productive of green sputum. Denies body aches. No recent travel. He is on oxygen at home and takes nebulizers at home which have not been helping.) Review of Systems Constitutional: reports: Fever, Chills Nose: denies: Rhinorrhea / runny nose Cardiac: denies: Chest pain / pressure Respiratory: reports: Dyspnea, Cough PD PAST MEDICAL HISTORY - Past Medical History Cardiovascular: None, High cholesterol, Arrhythmia Respiratory: COPD, Shortness of breath Endocrine/Autoimmune: None GI: None : None HEENT: Chronic sinusitis Psych: Depression, Anxiety Musculoskeletal: Chronic back pain, Other (Chronic muscle spasms in hands. Cervical disc disorder with radiculopathy.) Derm: None - Past Surgical History Past Surgical History: Yes - Present Medications Home Medications: Ambulatory Orders Medication Instructions Recorded Confirmed Budesonide/Formoterol Fumarate 10.2 gm IH BID 05/09/17 05/27/18 [Symbicort 160-4.5 Mcg Inhaler] Tamsulosin [Flomax] 0.8 mg PO DAILY 05/09/17 05/27/18 Albuterol 3 ml INH .4-5 TIMES/DAY PRN 11/23/17 05/27/18 Albuterol Sulf [Ventolin Hfa 1 - 2 puffs INH Q4HR PRN 11/23/17 05/27/18 Inhaler] Atorvastatin Calcium 20 mg PO QPM 11/23/17 05/27/18 Lactose-Reduced Food [Ensure 1 bottle PO DAILY 11/23/17 05/27/18 Compact] Polyethylene Glycol 3350 [Miralax] 0.25 - 1 cap PO DAILY PRN MDD 1/4 11/23/17 05/27/18 to 1 capful daily Ramelteon [Rozerem] 8 mg PO .QHS 11/23/17 05/27/18 Trazodone HCl 100 mg PO .QPM PRN 11/23/17 05/27/18 Carisoprodol [Soma] 350 mg PO QID 01/09/18 05/27/18 Amitriptyline HCl 150 mg PO DAILY MDD 3: On-going 04/18/18 05/27/18 Azithromycin 250 mg PO .EVERY M,W,F 05/27/18 05/27/18 Guaifenesin [Guaifenesin ER] 1,200 mg PO DAILY 05/27/18 05/27/18 Umeclidinium [place] [Incruse 62.5 mcg PO DAILY 05/27/18 05/27/18 Ellipta] fentaNYL 12 MCG PATCH [Duragesic 12 mcg TD .Q72H 05/27/18 05/27/18 12mcg patch] fentaNYL 50 MCG PATCH [Duragesic 50 mcg TD .Q72H 05/27/18 05/27/18 50mcg patch] predniSONE [Prednisone] 10 mg PO DAILY MDD until tabs run 05/27/18 05/27/18 out predniSONE [Prednisone] 20 mg PO DAILY MDD for 3 days, 05/27/18 05/27/18 then 10mg predniSONE [Prednisone] 30 mg PO DAILY MDD for 3 days, 05/27/18 05/27/18 then 20mg predniSONE [Prednisone] 40 mg PO DAILY MDD for 3 days then 05/27/18 05/27/18 30mg predniSONE [Prednisone] 50 mg PO DAILY MDD for 3 days, 05/27/18 05/27/18 then 40mg predniSONE [Prednisone] 60 mg PO DAILY MDD for 3 days, 05/27/18 05/27/18 then 50mg Doxycycline Hyclate 100 mg PO BID #14 capsule 06/22/18 predniSONE [Deltasone] 20 mg PO [id number] #21 tab 06/22/18 - Allergies Allergies/Adverse Reactions: Allergies Allergy/AdvReac Type Severity Reaction Status Date / Time No Known Drug Allergies Allergy Verified 06/22/18 14:04 - Social History Does the pt smoke?: No Smoking Status: Former smoker Does the pt drink ETOH?: No Does the pt have substance abuse?: No - Family History Family history: reports: Non contributory - Immunizations Immunizations are current?: Yes - POLST Patient has POLST: Yes PD ED PE NORMAL - Vitals Vital signs reviewed: Yes - General General: Alert and oriented X 3, Other (He is tachypneic but speaking in full sentences) - HEENT HEENT: PERRL, EOMI - Neck Neck: Supple, no meningeal sign, No bony TTP - Cardiac Cardiac: RRR, No murmur - Respiratory Respiratory: Other (Loud rhonchorous breath sounds and slightly diminished at the bases) - Abdomen Abdomen: Soft, Non tender - Back Back: No CVA TTP, No spinal TTP - Derm Derm: Normal color, Warm and dry - Extremities Extremities: No edema, No calf tenderness / cord - Neuro Neuro: Alert and oriented X 3, Normal speech - Psych Psych: Normal mood, Normal affect Results - Vitals Vitals: Vital Signs - 24 hr 06/22/18 06/22/18 06/22/18 14:02 14:17 14:36 Temperature 37.6 C H Heart Rate 122 H 104 H Respiratory 30 H 22 Rate Blood Pressure 120/102 H O2 Saturation 95 06/22/18 06/22/18 14:47 15:20 Temperature Heart Rate 102 H 102 H Respiratory 20 22 Rate Blood Pressure 101/69 O2 Saturation 100 Oxygen O2 Source Nasal cannula Oxygen Flow Rate 3 - EKG (time done) 1408 Rate: Rate (enter#) (118) Rhythm: Sinus tachycardia [place]: Normal Intervals: Other (LAFB) Ischemia: Non specific changes. No: ST elevation c/w ischemia Computer interpretation: Agree with computer - Labs Labs: Laboratory Tests 06/22/18 06/22/18 06/22/18 14:15 14:15 14:15 WBC 9.6 RBC 4.46 L Hgb 13.8 L Hct 40.9 L MCV 91.8 MCH 30.9 MCHC 33.7 RDW 14.5 Plt Count 299 MPV 6.6 L Neut # (Auto) 6.7 H Lymph # (Auto) 1.5 [place] # (Auto) 1.3 H Eos # (Auto) 0.1 Baso # (Auto) 0.1 Absolute Nucleated RBC 0.00 Nucleated RBC % 0.0 Sodium 134 L Potassium 4.0 Chloride 97 L Carbon Dioxide 22 Anion Gap 15.0 H BUN 10 Creatinine 0.8 Estimated GFR (MDRD) 98 Glucose 83 Lactic Acid 1.3 Calcium 9.2 Total Bilirubin 1.0 AST 21 ALT 17 Alkaline Phosphatase 51 Total Protein 7.5 Albumin 4.5 Globulin 3.0 Albumin/Globulin Ratio 1.5 Lipase 23 Influenza A (Rapid) Influenza B (Rapid) 06/22/18 14:30 WBC RBC Hgb Hct MCV MCH MCHC RDW Plt Count MPV Neut # (Auto) Lymph # (Auto) [place] # (Auto) Eos # (Auto) Baso # (Auto) Absolute Nucleated RBC Nucleated RBC % Sodium Potassium Chloride Carbon Dioxide Anion Gap BUN Creatinine Estimated GFR (MDRD) Glucose Lactic Acid Calcium Total Bilirubin AST ALT Alkaline Phosphatase Total Protein Albumin Globulin Albumin/Globulin Ratio Lipase Influenza A (Rapid) Negative Influenza B (Rapid) Negative - Rads (name of study) 1v chest Radiology: EMP read contemporaneously (hyperinflation) PD MEDICAL DECISION MAKING - ED course ED course: This is a 62-year-old gentleman with severe COPD who presents with apparent exacerbation of same. After the first neb he was looking much more comfortable and breathing much easier. He was also given Rocephin and steroids via IV. A couple more nebs and he felt back to normal pretty much. Departure - Departure Disposition: 01 Home, Self Care Clinical Impression: COPD with exacerbation Condition: Good Record reviewed to determine appropriate education?: Yes Instructions: ED COPD Flare Prescriptions: Doxycycline Hyclate 100 mg PO BID #14 capsule predniSONE [Deltasone] 20 mg PO [id number] #21 tab Comments: Call your doctor to arrange a follow-up appointment, make the next available appointment. In the interim, return anytime if worse or if new symptoms develop.
[2018-06-22 14:32] LABS: BASOPHILS # (AUTO) 0.1 10^3/uL (0.0-0.1); BASOPHILS % (AUTO) 0.6 %; EOSINOPHILS # (AUTO) 0.1 10^3/uL (0.0-0.7); EOSINOPHILS % (AUTO) 0.7 %; HGB - HEMOGLOBIN 13.8 g/dL (14.0-18.0); LYMPHOCYTES # (AUTO) 1.5 10^3/uL (1.5-3.5); LYMPHOCYTES % (AUTO) 15.6 %; MEAN CORPUSCULAR HEMOGLOBIN 30.9 pg (27.0-31.0); MEAN CORPUSCULAR HGB CONC 33.7 g/dL (32.0-36.0); MEAN CORPUSCULAR VOLUME 91.8 fL (80.0-94.0); MEAN PLATELET VOLUME 6.6 fL (7.4-11.4); MONOCYTES # (AUTO) 1.3 10^3/uL (0.0-1.0); MONOCYTES % (AUTO) 13.4 %; NEUTROPHILS # (AUTO) 6.7 10^3/uL (1.5-6.6); NEUTROPHILS % (AUTO) 69.7 %; PLT - PLATELET COUNT 299 10^3/uL (130-450); RED BLOOD COUNT 4.46 10^6/uL (4.70-6.10); RED CELL DISTRIBUTION WIDTH 14.5 % (12.0-15.0); WHITE BLOOD COUNT 9.6 x10^3/uL (4.8-10.8)
[2018-06-22 14:42] LABS: ALBUMIN 4.5 g/dL (3.2-5.5); ALBUMIN/GLOBULIN RATIO 1.5 (1.0-2.2); CALCIUM 9.2 mg/dL (8.5-10.3); CREATININE 0.8 mg/dL (0.6-1.2); TOTAL PROTEIN 7.5 g/dL (6.7-8.2)
--- NOTE | 2018-06-22 15:00 | XRAY Report ---
Reason: dyspnea Procedure Date: 06/22/2018 Accession Number: [id number] / [id number] Procedure: XR - Chest 1 View X-Ray CPT Code: 56952 FULL RESULT: EXAM: CHEST RADIOGRAPHY EXAM DATE: 06/22/2018 02:28 PM. CLINICAL HISTORY: Dyspnea. COMPARISON: CHEST 2 VIEW 06/03/2018 3:08 PM CHEST 2 VIEW 05/01/2017 9:41 AM CHEST 2 VIEW 04/12/2017 5:04 PM CHEST 2 VIEW PA/LAT 04/04/2015 6:53 AM. TECHNIQUE: 1 view. FINDINGS: Lungs/Pleura: Hyperinflated lung volumes. No focal opacities evident. No pleural effusion. No pneumothorax. Mediastinum: Within exam limitations, the cardiomediastinal contour is normal. Other: None. IMPRESSION: Hyperinflated lungs, otherwise no radiographic evidence for acute cardiothoracic process. RADIA
[2018-06-22] MEDS ORDERED: LEVALBUTEROL 1.25 MG/3 ML NEB INH STA (15:06)
[2018-06-22 16:24] VITALS: BP 133/76
== END 2018-06-22 16:39 | disposition home or self-care (01) ==
LOC: ED 13:59
DX: J44.1 Chronic obstructive pulmonary disease with (acute) exacerbation (principal); Z87.891 Personal history of nicotine dependence
CPT/HCPCS: 36415; 71045; 80053; 83605; 83690; 85025; 87040; 87275; 87276; 93005; 94640; 96365; 96375; 99284

== ENCOUNTER 2018-08-22 11:50 | Outpatient (CLI) | payer MEDICARE, MEDICAID | END 2018-08-22 11:51 | disposition critical access hospital (66) | LOC: EMS 11:50 | PROVIDERS: ATTEND Surgery | DX: R06.00 Dyspnea, unspecified (principal); M54.9 Dorsalgia, unspecified | CPT/HCPCS: A0425; A0427 ==

== ENCOUNTER 2018-08-22 12:18 | Emergency (ER) | payer MEDICARE, MEDICAID ==
[2018-08-22] MEDS ORDERED: methylPREDNISolone SUCCINATE 125 MG/2 ML VIAL IVP STA (12:38)
[2018-08-22] MEDS ORDERED: HYDROmorphone 2 MG/ML VIAL IVP STA (12:38)
[2018-08-22] MEDS ORDERED: LEVALBUTEROL 1.25 MG/3 ML NEB INH STA (12:38)
--- NOTE | 2018-08-22 12:41 | ED Physician Documentation ---
PD HPI DYSPNEA - Stated complaint Stated Complaint: SOA - Chief complaint Chief Complaint: Resp - History obtained from History obtained from: Patient, EMS - History of Present Illness Timing - onset: Today (He is more short of breath and normal today with minimal part nonproductive cough. Denies chest pain but has severe back pain. Per the paramedics he looks quite ill prior to receiving 2 nebs in route, 1 DuoNeb and one albuterol. Looking better per the paramedics now but still looks labored to me. Denies chest pain or pedal edema. He is in oxygen dependent COPD year and wears 4 L at home.) Review of Systems Ten Systems: 10 systems reviewed and negative Constitutional: denies: Fever, Chills Cardiac: denies: Chest pain / pressure, Palpitations, Pedal edema, Calf pain Respiratory: reports: Dyspnea, Cough, Wheezing. denies: Hemoptysis GI: denies: Abdominal Pain Musculoskeletal: reports: Back pain PD PAST MEDICAL HISTORY - Past Medical History Cardiovascular: None, High cholesterol, Arrhythmia Respiratory: COPD, Shortness of breath Endocrine/Autoimmune: None GI: None : None HEENT: Chronic sinusitis Psych: Depression, Anxiety Musculoskeletal: Chronic back pain, Other Derm: None - Past Surgical History Past Surgical History: Yes - Present Medications Home Medications: Ambulatory Orders Medication Instructions Recorded Confirmed Budesonide/Formoterol Fumarate 10.2 gm IH BID 05/09/17 05/27/18 [Symbicort 160-4.5 Mcg Inhaler] Tamsulosin [Flomax] 0.8 mg PO DAILY 05/09/17 05/27/18 Albuterol Sulf [Ventolin Hfa 1 - 2 puffs INH Q4HR PRN 11/23/17 05/27/18 Inhaler] Lactose-Reduced Food [Ensure 1 bottle PO DAILY 11/23/17 05/27/18 Compact] Polyethylene Glycol 3350 [Miralax] 0.25 - 1 cap PO DAILY PRN MDD /11/23/17 05/27/18 to 1 capful daily RX: Albuterol 3 ml INH .4-5 TIMES/DAY PRN 11/23/17 05/27/18 RX: Atorvastatin Calcium 20 mg PO QPM 11/23/17 05/27/18 RX: Trazodone HCl 100 mg PO .QPM PRN 11/23/17 05/27/18 Ramelteon [Rozerem] 8 mg PO .QHS 11/23/17 05/27/18 RX: Carisoprodol [Soma] 350 mg PO QID 01/09/18 05/27/18 RX: Amitriptyline HCl 150 mg PO DAILY MDD 3: On-going 04/18/18 05/27/18 RX: Azithromycin 250 mg PO .EVERY M,W,F 05/27/18 05/27/18 RX: Guaifenesin [Guaifenesin ER] 1,200 mg PO DAILY 05/27/18 05/27/18 RX: fentaNYL 12 MCG PATCH 12 mcg TD .Q72H 05/27/18 05/27/18 [Duragesic 12mcg patch] RX: fentaNYL 50 MCG PATCH 50 mcg TD .Q72H 05/27/18 05/27/18 [Duragesic 50mcg patch] Umeclidinium [place] [Incruse 62.5 mcg PO DAILY 05/27/18 05/27/18 Ellipta] predniSONE [Prednisone] 10 mg PO DAILY MDD until tabs run 05/27/18 05/27/18 out predniSONE [Prednisone] 20 mg PO DAILY MDD for 3 days, 05/27/18 05/27/18 then 10mg predniSONE [Prednisone] 30 mg PO DAILY MDD for 3 days, 05/27/18 05/27/18 then 20mg predniSONE [Prednisone] 40 mg PO DAILY MDD for 3 days then 05/27/18 05/27/18 30mg predniSONE [Prednisone] 50 mg PO DAILY MDD for 3 days, 05/27/18 05/27/18 then 40mg predniSONE [Prednisone] 60 mg PO DAILY MDD for 3 days, 05/27/18 05/27/18 then 50mg RX: Doxycycline Hyclate 100 mg PO BID #14 capsule 06/22/18 RX: predniSONE [Deltasone] 20 mg PO [id number] #21 tab 06/22/18 RX: Azithromycin 1 tab PO DAILY #4 tablet 08/22/18 RX: predniSONE [Deltasone] 20 mg PO [id number] #21 tab 08/22/18 - Allergies Allergies/Adverse Reactions: Allergies Allergy/AdvReac Type Severity Reaction Status Date / Time No Known Drug Allergies Allergy Verified 06/22/18 14:04 - Social History Does the pt smoke?: Yes Smoking Status: Current every day smoker Does the pt drink ETOH?: No Does the pt have substance abuse?: No - Family History Family history: reports: Non contributory - Immunizations Immunizations are current?: Yes - POLST Patient has POLST: Yes PD ED PE NORMAL - Vitals Vital signs reviewed: Yes - General General: Alert and oriented X 3, Other (Slightly labored breathing but speaking in full sentences, winces with motion due to back pain.) - HEENT HEENT: PERRL, EOMI - Neck Neck: Supple, no meningeal sign, No bony TTP - Cardiac Cardiac: RRR, No murmur - Respiratory Respiratory: Other (Slightly labored breathing, very diminished especially at the right base with poor air movement throughout.) - Abdomen Abdomen: Non tender - Back Back: No CVA TTP, No spinal TTP - Extremities Extremities: No edema, No calf tenderness / cord - Neuro Neuro: Alert and oriented X 3, Normal speech Results - Vitals Vitals: Vital Signs - 24 hr 08/22/18 08/22/18 08/22/18 12:21 12:27 12:57 Temperature 37.0 C 37.0 C Heart Rate 89 88 88 Respiratory 20 20 24 Rate Blood Pressure 117/82 H 117/82 H O2 Saturation 100 97 08/22/18 13:51 Temperature 36.5 C Heart Rate 74 Respiratory 22 Rate Blood Pressure 107/72 O2 Saturation 94 Oxygen O2 Source Nasal cannula Oxygen Flow Rate 4 - EKG (time done) 1244 Rhythm: NSR (with pvc) [place]: Normal Intervals: RBBB (and LAFB) Ischemia: Non specific changes. No: ST elevation c/w ischemia Computer interpretation: Agree with computer - Labs Labs: Laboratory Tests 08/22/18 08/22/18 08/22/18 12:56 12:56 12:56 WBC 6.3 RBC 3.97 L Hgb 12.1 L Hct 36.3 L MCV 91.4 MCH 30.5 MCHC 33.4 RDW 13.5 Plt Count 292 MPV 6.5 L Neut # (Auto) 3.5 Lymph # (Auto) 1.9 [place] # (Auto) 0.6 Eos # (Auto) 0.2 Baso # (Auto) 0.0 Absolute Nucleated RBC 0.00 Nucleated RBC % 0.0 Sodium 141 Potassium 3.6 Chloride 104 Carbon Dioxide 28 Anion Gap 9.0 BUN 6 Creatinine 0.6 Estimated GFR (MDRD) 137 Glucose 114 H Lactic Acid Calcium 8.5 Total Bilirubin 0.7 AST 15 ALT 13 Alkaline Phosphatase 49 Troponin I < 0.04 Total Protein 6.0 L Albumin 3.5 Globulin 2.5 Albumin/Globulin Ratio 1.4 Lipase 20 L 08/22/18 12:56 WBC RBC Hgb Hct MCV MCH MCHC RDW Plt Count MPV Neut # (Auto) Lymph # (Auto) [place] # (Auto) Eos # (Auto) Baso # (Auto) Absolute Nucleated RBC Nucleated RBC % Sodium Potassium Chloride Carbon Dioxide Anion Gap BUN Creatinine Estimated GFR (MDRD) Glucose Lactic Acid 0.9 Calcium Total Bilirubin AST ALT Alkaline Phosphatase Troponin I Total Protein Albumin Globulin Albumin/Globulin Ratio Lipase - Rads (name of study) 1v chest Radiology: EMP read contemporaneously (PHPBT ) PD MEDICAL DECISION MAKING - ED course ED course: 62-year-old gentleman with severe underlying COPD presents with apparent exacerbation of same. After several nebs he felt back to his baseline which is still with mildly labored breathing and rhonchorous lungs but his vital signs were reassuring and he requested discharge. Departure - Departure Disposition: Home, Self Care Clinical Impression: COPD with exacerbation Condition: Good Record reviewed to determine appropriate education?: Yes Instructions: COPD Dc Prescriptions: RX: Azithromycin 1 tab PO DAILY #4 tablet RX: predniSONE [Deltasone] 20 mg PO [id number] #[id number] tab Comments: Call your doctor to arrange a follow-up appointment, make the next available appointment. In the interim, return anytime if worse or if new symptoms develop. Discharge Date/Time: 08/22/18 14:35
[2018-08-22 13:05] LABS: BASOPHILS % (AUTO) 0.7 %; EOSINOPHILS # (AUTO) 0.2 10^3/uL (0.0-0.7); EOSINOPHILS % (AUTO) 3.4 %; HGB - HEMOGLOBIN 12.1 g/dL (14.0-18.0); LYMPHOCYTES # (AUTO) 1.9 10^3/uL (1.5-3.5); LYMPHOCYTES % (AUTO) 30.9 %; MEAN CORPUSCULAR HEMOGLOBIN 30.5 pg (27.0-31.0); MEAN CORPUSCULAR HGB CONC 33.4 g/dL (32.0-36.0); MEAN CORPUSCULAR VOLUME 91.4 fL (80.0-94.0); MEAN PLATELET VOLUME 6.5 fL (7.4-11.4); MONOCYTES # (AUTO) 0.6 10^3/uL (0.0-1.0); MONOCYTES % (AUTO) 10.1 %; NEUTROPHILS # (AUTO) 3.5 10^3/uL (1.5-6.6); NEUTROPHILS % (AUTO) 54.9 %; PLT - PLATELET COUNT 292 10^3/uL (130-450); RED BLOOD COUNT 3.97 10^6/uL (4.70-6.10); RED CELL DISTRIBUTION WIDTH 13.5 % (12.0-15.0); WHITE BLOOD COUNT 6.3 x10^3/uL (4.8-10.8)
[2018-08-22 13:19] LABS: ALBUMIN 3.5 g/dL (3.2-5.5); ALBUMIN/GLOBULIN RATIO 1.4 (1.0-2.2); BILIRUBIN,TOTAL 0.7 mg/dL (0.2-1.0); CALCIUM 8.5 mg/dL (8.5-10.3); CREATININE 0.6 mg/dL (0.6-1.2)
--- NOTE | 2018-08-22 13:32 | XRAY Report ---
Reason: cough, dyspnea Procedure Date: 08/22/2018 Accession Number: [id number] / [id number] Procedure: XR - Chest 1 View X-Ray CPT Code: 93706 FULL RESULT: EXAM: CHEST RADIOGRAPHY EXAM DATE: 08/22/2018 01:14 PM. CLINICAL HISTORY: Cough, dyspnea. COMPARISON: CHEST 1 VIEW 06/22/2018 2:17 PM. TECHNIQUE: 1 view. FINDINGS: Cardiac leads overlie the chest. Heart size is normal. Calcified plaques in the thoracic aorta. The lungs are hyperexpanded and hyperlucent, likely representing changes from chronic airways disease. There are increased perihilar/peribronchial markings bilaterally, which is most notable in the right midlung and bilateral lung bases. No focal consolidation. No visible pleural effusion or pneumothorax. IMPRESSION: Increased perihilar/peribronchial markings bilaterally, which may represent acute on chronic airways disease, atypical infection, or other cause of pneumonitis. RADIA
[2018-08-22] MEDS ORDERED: AZITHROMYCIN 250 MG TABLET PO STA (13:37)
[2018-08-22 13:54] VITALS: BP 107/72
== END 2018-08-22 14:35 | disposition home or self-care (01) ==
LOC: EDUNIT# → ED 12:18
DX: J44.1 Chronic obstructive pulmonary disease with (acute) exacerbation (principal); F17.200 Nicotine dependence, unspecified, uncomplicated; Z99.81 Dependence on supplemental oxygen; M54.9 Dorsalgia, unspecified; I45.2 Bifascicular block; I49.3 Ventricular premature depolarization
CPT/HCPCS: 36415; 71045; 80053; 83605; 83690; 84484; 85025; 87040; 93005; 94640; 96374; 99283; 99284; A9270; J1170

== ENCOUNTER 2018-09-04 12:54 | Outpatient (CLI) | payer MEDICARE, MEDICAID | END 2018-09-04 12:55 | disposition hospice, home (50) | LOC: EMS 12:54 | PROVIDERS: ATTEND Surgery | DX: R41.0 Disorientation, unspecified (principal); R09.02 Hypoxemia; Z99.81 Dependence on supplemental oxygen; M54.9 Dorsalgia, unspecified | CPT/HCPCS: A0425; A0428 ==

== ENCOUNTER 2018-09-20 21:21 | Outpatient (CLI) | payer MEDICARE, MEDICAID | END 2018-09-20 21:22 | disposition critical access hospital (66) | LOC: EMS 21:21 | PROVIDERS: ATTEND Surgery | DX: R06.00 Dyspnea, unspecified (principal); R45.1 Restlessness and agitation | CPT/HCPCS: A0425; A0429 ==

== ENCOUNTER 2018-09-20 21:33 | Observation (INO) | payer MEDICAID, MEDICARE, OTHER ==
--- NOTE | 2018-09-20 21:43 | ED Physician Documentation ---
PD HPI ALTERED MENTAL STATUS - Stated complaint Stated Complaint: AGITATED - History obtained from History obtained from: Patient, EMS, Other (Dr. Guerrero (via phone conversation with me)) - History of Present Illness Timing - onset: Today Timing - details: Abrupt onset Quality / character: Agitated Contributing factors: COPD Recently seen: Emergency Dept (T+R last month from this ED for dyspnea) - Additional information Additional information: MARKUS. He has been at [facility] but tonight became agitated and caregivers were unable to control his behavior, no longer able to care for this patient at their facility. This is a hospice patient and is thus known to Dr. Leroy Guerrero. Dr. Guerrero contacted this ED while patient was en route via ambulance and recommends sedation and admission Review of Systems Unable to obtain: Confused PD PAST MEDICAL HISTORY - Past Medical History Cardiovascular: None, High cholesterol, Arrhythmia Respiratory: COPD, Shortness of breath Endocrine/Autoimmune: None GI: None : None HEENT: Chronic sinusitis Psych: Depression, Anxiety Musculoskeletal: Chronic back pain, Other Derm: None - Past Surgical History Past Surgical History: Yes - Present Medications Home Medications: Ambulatory Orders Medication Instructions Recorded Confirmed Budesonide/Formoterol Fumarate 10.2 gm IH BID 05/09/17 05/27/18 [Symbicort 160-4.5 Mcg Inhaler] Tamsulosin [Flomax] 0.8 mg PO DAILY 05/09/17 05/27/18 Albuterol 3 ml INH .4-5 TIMES/DAY PRN 11/23/17 05/27/18 Albuterol Sulf [Ventolin Hfa 1 - 2 puffs INH Q4HR PRN 11/23/17 05/27/18 Inhaler] Atorvastatin Calcium 20 mg PO QPM 11/23/17 05/27/18 Lactose-Reduced Food [Ensure 1 bottle PO DAILY 11/23/17 05/27/18 Compact] Polyethylene Glycol 3350 [Miralax] 0.25 - 1 cap PO DAILY PRN MDD 1/4 11/23/17 05/27/18 to 1 capful daily Ramelteon [Rozerem] 8 mg PO .QHS 11/23/17 05/27/18 Trazodone HCl 100 mg PO .QPM PRN 11/23/17 05/27/18 Carisoprodol [Soma] 350 mg PO QID 01/09/18 05/27/18 Amitriptyline HCl 150 mg PO DAILY MDD 3: On-going 04/18/18 05/27/18 Azithromycin 250 mg PO .EVERY M,W,F 05/27/18 05/27/18 Umeclidinium [place] [Incruse 62.5 mcg PO DAILY 05/27/18 05/27/18 Ellipta] fentaNYL 12 MCG PATCH [Duragesic 12 mcg TD .Q72H 05/27/18 05/27/18 12mcg patch] fentaNYL 50 MCG PATCH [Duragesic 50 mcg TD .Q72H 05/27/18 05/27/18 50mcg patch] guaiFENesin [Guaifenesin ER] 1,200 mg PO DAILY 05/27/18 05/27/18 predniSONE [Prednisone] 10 mg PO DAILY MDD until tabs run 05/27/18 05/27/18 out predniSONE [Prednisone] 20 mg PO DAILY MDD for 3 days, 05/27/18 05/27/18 then 10mg predniSONE [Prednisone] 30 mg PO DAILY MDD for 3 days, 05/27/18 05/27/18 then 20mg predniSONE [Prednisone] 40 mg PO DAILY MDD for 3 days then 05/27/18 05/27/18 30mg predniSONE [Prednisone] 50 mg PO DAILY MDD for 3 days, 05/27/18 05/27/18 then 40mg predniSONE [Prednisone] 60 mg PO DAILY MDD for 3 days, 05/27/18 05/27/18 then 50mg Doxycycline Hyclate 100 mg PO BID #14 capsule 06/22/18 predniSONE [Deltasone] 20 mg PO [id number] #21 tab 06/22/18 Azithromycin 1 tab PO DAILY #4 tablet 08/22/18 predniSONE [Deltasone] 20 mg PO [id number] #21 tab 08/22/18 - Allergies Allergies/Adverse Reactions: Allergies Allergy/AdvReac Type Severity Reaction Status Date / Time No Known Drug Allergies Allergy Verified 06/22/18 14:04 - Social History Does the pt smoke?: Yes Smoking Status: Current every day smoker Does the pt drink ETOH?: No Does the pt have substance abuse?: No - Immunizations Immunizations are current?: Yes - POLST Patient has POLST: Yes PD ED PE NORMAL - Vitals Vital signs reviewed: Yes - General General: No acute distress, Other (cachectic. awake, alert, calm except for brief outburst shortly after he first arrived to ED. he appears anxious and frightened) - HEENT HEENT: PERRL, EOMI, Moist mucous membranes - Cardiac Cardiac: RRR, No murmur - Respiratory Respiratory: No respiratory distress, Other (diminshed breath sounds bilaterally) - Abdomen Abdomen: Soft, Non tender - Extremities Extremities: No edema Results - Vitals Vitals: Vital Signs - 24 hr 09/20/18 21:39 Temperature 36.8 C Heart Rate 100 Respiratory 22 Rate Blood Pressure 115/83 H O2 Saturation 96 Oxygen O2 Source Room air PD MEDICAL DECISION MAKING - ED course Complexity details: reviewed old records, considered differential, d/w PMD ED course: calm in ED except for brief outburst shortly after he first arrived to ED. Medics report patient was severely agitated on scene and en route, and patient could be heard yelling in background when RN took medic report Departure - Departure Disposition: ED Place in Observation Clinical Impression: Agitation Condition: Good Discharge Date/Time: 09/20/18 23:08
[2018-09-20] MEDS ORDERED: HALOPERIDOL 5 MG/ML VIAL IM STA (21:49)
[2018-09-20] MEDS ORDERED: LORazepam 2 MG/ML VIAL IVP STA (21:49)
[2018-09-20] MEDS ORDERED: HALOPERIDOL 5 MG/ML VIAL IVP PRN (22:17)
[2018-09-20] MEDS ORDERED: LORazepam 2 MG/ML VIAL IM STA (22:18)
--- NOTE | 2018-09-20 23:51 | HISTORY & PHYSICAL EXAMINATION ---
Chief Complaint - Chief Complaint Chief Complaint: agitation/ confusion History of Present Illness - Admitted From Admitted From:: [facility] ED - History Obtained From Records Reviewed: yes History obtained from: hospice nurse and ED staff Exam Limitations: confusion - History of Present Illness HPI Comment/Other: Patient was seen on 09/20/18 at 22:45pm Patient is a 62 y/o male who is in hospice for End stage COPD. He presented to the [facility] ED today via EMS with agitation and worsening confusion. As a result of going confusion, he has been unable to manage his medications on his own at home. Consequently he was placed in an adult family home about 2 weeks ago. It is reported that he has been very forgetful lately. He has been disoriented, delusional and paranoid for the past 2 days. He claims he is at the adult detention against his will and does not want to go back or stay there. That has been the basis of the escalated agitation today. At bedside, he appears calm after administration of ativan and haldol. He is on 2L Oxygen N/C with an O2Sat of 98%. He does not appear to be in any respiratory distress. He denies chest pain, nausea, vomiting, fever or chills. As a result of the agitation, he is being admitted for further management. History - Past Medical History Cardiovascular: reports: None, High cholesterol, Arrhythmia Respiratory: reports: COPD, Shortness of breath Neuro: reports: TIA Endocrine/Autoimmune: reports: None GI: reports: None : reports: None HEENT: reports: Chronic sinusitis Psych: reports: Depression, Anxiety Musculoskeletal: reports: Chronic back pain, Other Derm: reports: None MRSA Hx?: No - Past Surgical History Other past surgical history: Patient currently unable to provide information due to altered mental status - Family & Social History Family History Comment/Other: Cannot obtain family history at the moment doue to patient current clinical status of confusion, disorientation, delusions and agitation Social History Notes: Formerly abused a wide range of drugs; stopped 07/05/1983. Patient continues to smoke. Alcohol use is unknown. Currently resides at an Adult Family Home. - Substance History Use: Uses substance without health or social issues: Other (Formerly abused a wide range of drugs; stopped 07/05/1983. Patie) - POLST Patient has POLST: Yes POLST Status: DNR Meds/Allgy - Home Medications Home Medications: Ambulatory Orders Medication Instructions Recorded Confirmed Budesonide/Formoterol Fumarate 10.2 gm IH BID 05/09/17 05/27/18 [Symbicort 160-4.5 Mcg Inhaler] Tamsulosin [Flomax] 0.8 mg PO DAILY 05/09/17 05/27/18 Albuterol 3 ml INH .4-5 TIMES/DAY PRN 11/23/17 05/27/18 Albuterol Sulf [Ventolin Hfa 1 - 2 puffs INH Q4HR PRN 11/23/17 05/27/18 Inhaler] Atorvastatin Calcium 20 mg PO QPM 11/23/17 05/27/18 Lactose-Reduced Food [Ensure 1 bottle PO DAILY 11/23/17 05/27/18 Compact] Polyethylene Glycol 3350 [Miralax] 0.25 - 1 cap PO DAILY PRN MDD 1/4 11/23/17 05/27/18 to 1 capful daily Ramelteon [Rozerem] 8 mg PO .QHS 11/23/17 05/27/18 Trazodone HCl 100 mg PO .QPM PRN 11/23/17 05/27/18 Carisoprodol [Soma] 350 mg PO QID 01/09/18 05/27/18 Amitriptyline HCl 150 mg PO DAILY MDD 3: On-going 04/18/18 05/27/18 Azithromycin 250 mg PO .EVERY M,W,F 05/27/18 05/27/18 Umeclidinium B[place]roft [Incruse 62.5 mcg PO DAILY 05/27/18 05/27/18 Ellipta] fentaNYL 12 MCG PATCH [Duragesic 12 mcg TD .Q72H 05/27/18 05/27/18 12mcg patch] fentaNYL 50 MCG PATCH [Duragesic 50 mcg TD .Q72H 05/27/18 05/27/18 50mcg patch] guaiFENesin [Guaifenesin ER] 1,200 mg PO DAILY 05/27/18 05/27/18 predniSONE [Prednisone] 10 mg PO DAILY MDD until tabs run 05/27/18 05/27/18 out predniSONE [Prednisone] 20 mg PO DAILY MDD for 3 days, 05/27/18 05/27/18 then 10mg predniSONE [Prednisone] 30 mg PO DAILY MDD for 3 days, 05/27/18 05/27/18 then 20mg predniSONE [Prednisone] 40 mg PO DAILY MDD for 3 days then 05/27/18 05/27/18 30mg predniSONE [Prednisone] 50 mg PO DAILY MDD for 3 days, 05/27/18 05/27/18 then 40mg predniSONE [Prednisone] 60 mg PO DAILY MDD for 3 days, 05/27/18 05/27/18 then 50mg Doxycycline Hyclate 100 mg PO BID #14 capsule 06/22/18 predniSONE [Deltasone] 20 mg PO [id number] #21 tab 06/22/18 Azithromycin 1 tab PO DAILY #4 tablet 08/22/18 predniSONE [Deltasone] 20 mg PO [id number] #21 tab 08/22/18 - Allergies Allergies/Adverse Reactions: Allergies Allergy/AdvReac Type Severity Reaction Status Date / Time No Known Drug Allergies Allergy Verified 06/22/18 14:04 Review of Systems - Other Findings Other Findings: Limited ROS because patient is not a very reliable historian at the moment. This is confounded by his presenting problems. Prior Level of Functionality: Resides at an Adult Family Home Exam - Vital Signs Vital Signs: Vital Signs x48h Temp Pulse Resp BP Pulse Ox 09/20/18 21:39 36.8 C 100 22 115/83 H 96 - Physical Exam General Appearance: positive: No acute distress, Other (Incoherent) Eyes Bilateral: positive: Normal inspection, PERRL, EOMI ENT: positive: ENT inspection nml, No signs of dehydration Neck: positive: Nml inspection, No JVD, Trachea midline Respiratory: positive: Chest non-tender, No respiratory distress, Other (Decreased breath sound. Barrel chested due to COPD). negative: Breath sounds nml, Wheezes, Rales, Rhonchi Cardiovascular: positive: Tachycardia Abdomen: positive: Non-tender, No distention. negative: Guarding, Rebound Back: positive: Nml inspection Skin: positive: Color nml, No rash, Warm, Dry. negative: Diaphoresis Extremities: positive: Non-tender, Full ROM, Nml appearance, No pedal edema Neurologic/Psychiatric: positive: CN's nml (2-12) (No oriented to reason for presentatiom) Conclusion/Plan - Problem List (1) Agitation Conclusion/Plan: Resume patient home doses of ativan and haldol. If needed, will order extra IM doses and restraints (2) End stage COPD Conclusion/Plan: This is the reason why patient is on hospice He will be seen by Dr Guerrero in the am Patient continues to smoke. Nicotine patch. Duoneb q 6hrs. Morphine for air hunger (3) Chronic pain Conclusion/Plan: On methadone Core Measures - Anticipated LOS I expect patient to be DC'd or transferred within 96 hours.: Yes
[2018-09-21] MEDS: HALOPERIDOL 1 MG TABLET PO SCH ×6 (03:01→17:05)
[2018-09-21] MEDS: LORazepam 1 MG TABLET PO SCH ×5 (03:01→17:05)
[2018-09-21] MEDS: HALOPERIDOL 5 MG/ML VIAL IM PRN ×4 (03:22→22:20)
[2018-09-21] MEDS: METHADONE 5 MG TABLET PO SCH ×3 (07:05→19:39)
[2018-09-21] MEDS: IPRATROPIUM/ALBUTEROL 3 ML NEB INH SCH ×4 (08:21→19:54)
[2018-09-21] MEDS ORDERED: NICOTINE 14 MG PATCH TOP SCH (09:00)
[2018-09-21] MEDS ORDERED: OLANZapine 10 MG VIAL IM SCH (12:09)
[2018-09-21] MEDS ORDERED: SENNA 8.6 MG TABLET PO PRN (13:12)
[2018-09-21 15:12] LABS: MUDS CUTOFF CONCENTRATIONS CUTOFF CONC BELOW:
[2018-09-21 15:34] LABS: AMPHETAMINE SCREEN,URINE NEGATIVE (NEGATIVE); BENZODIAZEPINES SCREEN, URINE POSITIVE (NEGATIVE); COCAINE SCREEN URINE NEGATIVE (NEGATIVE); METHADONE SCREEN, URINE POSITIVE (NEGATIVE); METHAMPHETAMINES SCREEN, URINE NEGATIVE (NEGATIVE); OPIATE SCREEN, URINE POSITIVE (NEGATIVE); OXYCODONE SCREEN, URINE NEGATIVE (NEGATIVE); PROPOXYPHENE SCREEN, URINE NEGATIVE (NEGATIVE); TRICYCLIC ANTIDEPRESSANT,URINE POSITIVE (NEGATIVE)
[2018-09-21] MEDS ORDERED: OLANZapine 10 MG VIAL IM ONE (18:36)
[2018-09-21] MEDS ORDERED: HALOPERIDOL 1 MG TABLET PO SCH (19:00)
[2018-09-21] MEDS ORDERED: LORazepam 1 MG TABLET PO SCH (19:00)
[2018-09-21] MEDS: HALOPERIDOL 1 MG TABLET PR SCH ×2 (19:38→21:34)
[2018-09-21] MEDS: LORazepam 1 MG TABLET PR SCH ×2 (19:38→21:34)
[2018-09-21] MEDS: TAMSULOSIN 0.4 MG CAPSULE PO SCH (19:39)
[2018-09-21] MEDS: buPROPion SR 150 MG TABLET PO SCH (19:39)
[2018-09-21] MEDS ORDERED: AMITRIPTYLINE 25 MG TABLET PO SCH (20:00)
[2018-09-22] MEDS: LORazepam 0.5 MG TABLET PR PRN ×2 (01:14→07:44)
[2018-09-22] MEDS: HALOPERIDOL 1 MG TABLET PR SCH ×8 (01:14→21:12)
[2018-09-22] MEDS: LORazepam 1 MG TABLET PR SCH ×5 (02:55→13:43)
[2018-09-22] MEDS: buPROPion SR 150 MG TABLET PO SCH ×2 (07:21→21:12)
[2018-09-22] MEDS: METHADONE 5 MG TABLET PO SCH ×2 (07:22→21:12)
[2018-09-22] MEDS: NICOTINE 14 MG PATCH TOP SCH ×2 (07:25→08:21)
--- NOTE | 2018-09-22 07:32 | PROVIDER PROGRESS NOTE ---
Subjective - Prog Note Date Prog Note Date: 09/21/18 Prog Note Time: 09:00 - Subjective Pt reports feeling: No change Subjective: Osmany has been attempting to leave the unit in which security staff had to be called, now with restraints. Current Medications - Current Medications Current Medications: Active Medications: Albuterol/Ipratropium (Duoneb) 3 ml INH RTQID DOUG Amitriptyline HCl (Elavil) 150 mg PO 1999 [facility] Bupropion HCl (Wellbutrin Sr) 150 mg PO 799,1999 [facility] Haloperidol (Haldol Inj) 4 mg IM Q4H PRN Haloperidol (Haldol) 2 mg AK Q3H DOUG Lorazepam (Ativan) 1 mg AK Q3H DOUG Lorazepam (Ativan) 2 mg AK Q2H PRN Methadone HCl 10 mg PO 1200 DOUG Methadone HCl 15 mg PO 08,1999 [facility] Morphine Sulfate (Roxanol) 10 mg PO Q2HR PRN Nicotine (Nicoderm) 1 patch TOP DAILY [facility] Senna (Senokot) 17.2 mg PO BID PRN Tamsulosin HCl (Flomax) 0.4 mg PO 1999 [facility] Tamsulosin [Flomax] 0.4 mg PO 199905/09/17 Amitriptyline HCl 100 mg PO 199904/18/18 Bupropion HCl [Bupropion HCl Sr] 150 mg PO 0800,199909/21/18 Haloperidol 1 mg PO Q4H PRN 09/21/18 Haloperidol 2 mg PO Q4H 09/21/18 LORazepam [Lorazepam] 1 mg PO 1200,1600,1999,09/21/18 LORazepam [Lorazepam] 1 mg PO Q2H PRN 09/21/18 Methadone 10 mg PO 1200 09/21/18 Methadone 15 mg PO 0800,199909/21/18 Sennosides [Senna] 17.2 mg PO BID PRN 09/21/18 guaiFENesin [Mucinex] 600 mg PO 0800 09/21/18 Objective - Vital Signs/Intake & Output Reviewed Vital Signs: Yes Vital Signs: Vital Signs x48h Temp Pulse Resp BP Pulse Ox 09/22/18 02:24 37.0 C 68 15 112/67 100 Intake & Output: Intake & Output 09/19/18 09/20/18 09/21/18 09/22/18 23:59 23:59 23:59 23:59 Intake Total 550 450 Output Total 675 150 Balance -125 300 - Objective General Appearance: positive: Alert, Severe distress, Anxious Eyes Bilateral: positive: No lid inflammation ENT: positive: Pharynx nml, Dry mucous membranes Neck: positive: Thyroid nml, No JVD, Stiff neck Respiratory: positive: No respiratory distress Abdomen: positive: Non-tender Back: positive: Nml inspection Skin: positive: No rash, Warm, Dry, Pallor Extremities: positive: No pedal edema Neurologic/Psychiatric: positive: Disoriented to person, Disoriented to place, Disoriented to time, Weakness, Sensory loss, Depressed mood/affect, Other (impulsive behaviors) - Lab Results Other Labs: Lab Results x24hrs / Range/Units 15:00 Urine Opiates Screen POSITIVE H (NEGATIVE) Ur Oxycodone Screen NEGATIVE (NEGATIVE) Urine Methadone Screen POSITIVE H (NEGATIVE) Ur Propoxyphene Screen NEGATIVE (NEGATIVE) Ur Barbiturates Screen NEGATIVE (NEGATIVE) Ur Tricyclics Screen POSITIVE H (NEGATIVE) Ur Phencyclidine Scrn NEGATIVE (NEGATIVE) Ur Amphetamine Screen NEGATIVE (NEGATIVE) U Methamphetamines Scrn NEGATIVE (NEGATIVE) U Benzodiazepines Scrn POSITIVE H (NEGATIVE) Urine Cocaine Screen NEGATIVE (NEGATIVE) U Cannabinoids Screen POSITIVE H (NEGATIVE) ABX Reporting Has patient been on IV antibiotics over the past 48 hours?: No Assessment/Plan - Problem List (1) End stage chronic obstructive pulmonary disease Impression: - Life long inhalant use, cigarette use, with no plans to stop - Oxygen administration is advised, but the patient usually gets it off some how, despite being restrained - Was prescribed Symbicort, albuterol, ventolin HFA, and prednisone - NO current exacerbation during this stay Plan: Continue duo-nebs, encourage oxygen use, monitor for worsening (2) Agitation Impression: - Patient has a history of emotional trauma - Also with end-stage COPD making activity taxing and challenging for any extended period Plan: Continue to follow the recommendations of Dr. Guerrero, monitor for effectiveness (3) Chronic pain Impression: - Several outside clinic visits regarding chronic pain - Documented cervical disc disorder with radiculopathy, low back pain, and trapezius muscle spasms - Also has emotional pain and has lacked a close relationship for much of his life - Tele Psych visit at 0130AM today, advised adjusting lorazepam, and adding Risperadol Plan: Continue to monitor for effectiveness in hopes to remove restraints Qualifiers: Chronic pain type: chronic pain syndrome Qualified Code(s): G89.4 - Chronic pain syndrome (4) History of substance use disorder Impression: - Patient was known to live in [place] and has had a life time of drug abuse - Family has been out of his life for the past several years - Has had Palliative and Hospice care managing his pain medications and chronic diseases Plan: Continue with Methadone, lorazepam and haldol or as per Dr. Guerrero, monitor for improvement in cooperation (5) Physical restraints status Impression: - The patient has made several attempts to leave the nursing unit - Security and ED staff respond - Now has 4 limb restraints, chemical restraints and a 1:1 sitter using nursing staff Plan: Continue Q4H restraint order, adjust medications for the hopes of removal (6) Protein-calorie malnutrition, severe Impression: - Cachectic on exam, frail appearance, muscle atrophy - Complicating factors of poor social situations in the past, poly-substance abuse, and continued inhalant use - Steady weight loss, under the care of Hospice Plan: Encourage oral intake, sitting up for mealtimes, control symptoms (7) Urinary retention Impression: - Post void residuals of greater than 600 mL last evening, no further problems today - Status post Amitriptyline, recommended to stop as it may have cholenergic effects Plan: Continue to monitor, continue Flomax (8) End of life care Impression: - Under the care of Hospice for this hospital stay - Following the recommendations of Dr. Guerrero - Hospitalist is consulting Plan: Continue with plan, consult via phone for any questions or changes that come about
[2018-09-22] MEDS: IPRATROPIUM/ALBUTEROL 3 ML NEB INH SCH ×4 (08:25→20:48)
[2018-09-22] MEDS ORDERED: METHADONE 5 MG TABLET PO SCH (12:00)
--- NOTE | 2018-09-22 15:12 | PROVIDER PROGRESS NOTE ---
Subjective - Prog Note Date Prog Note Date: 09/22/18 Prog Note Time: 15:10 - Subjective Pt reports feeling: No change Subjective: Osmany is lethargic at times, and minimally interactive at other times. Dr. Guerrero spoke to me over the phone and requested a very small adjustment in his methadone dosing; so he will now get 10 mg at 0800, and 1200 noon, then 15mg at 1999. Awaiting a tele-psych evaluation which was ordered this morning. * Spoke with Dr. Guerrero via phone regarding new urinary retention of >600mL. Recommends stopping Amitriptyline, ok to straight cath, but an indwelling should be avoided due to his profound dementia. Current Medications - Current Medications Current Medications: Active Medications: Albuterol/Ipratropium (Duoneb) 3 ml INH RTQID DOUG Amitriptyline HCl (Elavil) 150 mg PO 1999 [facility] Bupropion HCl (Wellbutrin Sr) 150 mg PO 0800,1999 [facility] Haloperidol (Haldol Inj) 4 mg IM Q4H PRN Haloperidol (Haldol) 2 mg ID Q3H DOUG Lorazepam (Ativan) 2 mg ID Q2H PRN Lorazepam (Ativan) 1 mg PO Q3H DOUG Methadone HCl 10 mg PO 0800,1200 DOUG Methadone HCl 15 mg PO 1999 [facility] Morphine Sulfate (Roxanol) 10 mg PO Q2HR PRN Nicotine (Nicoderm) 1 patch TOP DAILY DOUG Senna (Senokot) 17.2 mg PO BID PRN Tamsulosin HCl (Flomax) 0.4 mg PO 1999 [facility] HOME meds: Tamsulosin [Flomax] 0.4 mg PO 199905/09/17 Amitriptyline HCl 100 mg PO 199904/18/18 Bupropion HCl [Bupropion HCl Sr] 150 mg PO 0800,199909/21/18 Haloperidol 1 mg PO Q4H PRN 09/21/18 Haloperidol 2 mg PO Q4H 09/21/18 LORazepam [Lorazepam] 1 mg PO 1200,1600,1999,09/21/18 LORazepam [Lorazepam] 1 mg PO Q2H PRN 09/21/18 Methadone 10 mg PO 1200 09/21/18 Methadone 15 mg PO 0800,199909/21/18 Sennosides [Senna] 17.2 mg PO BID PRN 09/21/18 guaiFENesin [Mucinex] 600 mg PO 0800 09/21/18 Objective - Vital Signs/Intake & Output Reviewed Vital Signs: Yes Vital Signs: Vital Signs x48h Temp Pulse Pulse Resp BP Pulse Ox 09/22/18 13:08 36.7 C 93 22 130/74 100 09/22/18 11:38 72 16 09/22/18 10:00 20 99 09/22/18 08:27 72 16 Intake & Output: Intake & Output 09/19/18 09/20/18 09/21/18 09/22/18 23:59 23:59 23:59 23:59 Intake Total 550 600 Output Total 675 930 Balance -125 -330 - Objective General Appearance: positive: No acute distress, Lethargic Eyes: OU Conjunctivae pale ENT: positive: No signs of dehydration Neck: positive: No JVD Respiratory: positive: Chest non-tender - Lab Results Other Labs: Lab Results x24hrs 09/21/18 Range/Units 15:00 Urine Opiates Screen POSITIVE H (NEGATIVE) Ur Oxycodone Screen NEGATIVE (NEGATIVE) Urine Methadone Screen POSITIVE H (NEGATIVE) Ur Propoxyphene Screen NEGATIVE (NEGATIVE) Ur Barbiturates Screen NEGATIVE (NEGATIVE) Ur Tricyclics Screen POSITIVE H (NEGATIVE) Ur Phencyclidine Scrn NEGATIVE (NEGATIVE) Ur Amphetamine Screen NEGATIVE (NEGATIVE) U Methamphetamines Scrn NEGATIVE (NEGATIVE) U Benzodiazepines Scrn POSITIVE H (NEGATIVE) Urine Cocaine Screen NEGATIVE (NEGATIVE) U Cannabinoids Screen POSITIVE H (NEGATIVE) ABX Reporting Has patient been on IV antibiotics over the past 48 hours?: No Assessment/Plan - Problem List (1) End stage chronic obstructive pulmonary disease Impression: - Life long inhalant use, cigarette use, with no plans to stop - Oxygen administration is advised, but the patient usually gets it off some how, despite being restrained - Was prescribed Symbicort, albuterol, ventolin HFA, and prednisone - NO current exacerbation during this stay Plan: Continue duo-nebs, encourage oxygen use, monitor for worsening (2) Agitation Impression: - Patient has a history of emotional trauma - Also with end-stage COPD making activity taxing and challenging for any extended period Plan: Continue to follow the recommendations of Dr. Guerrero, monitor for effectiveness (3) Chronic pain Impression: - Several outside clinic visits regarding chronic pain - Documented cervical disc disorder with radiculopathy, low back pain, and trapezius muscle spasms - Also has emotional pain and has lacked a close relationship for much of his life Plan: Continue to monitor for effectiveness in hopes to remove restraints Qualifiers: Chronic pain type: chronic pain syndrome Qualified Code(s): G89.4 - Chronic pain syndrome (4) History of substance use disorder Impression: - Patient was known to live in [place] and has had a life time of drug abuse - Family has been out of his life for the past several years - Has had Palliative and Hospice care managing his pain medications and chronic diseases Plan: Continue with Methadone, lorazepam and haldol or as per Dr. Guerrero, monitor for improvement in cooperation (5) Physical restraints status Impression: - The patient has made several attempts to leave the nursing unit - Security and ED staff respond - Now has 4 limb restraints, chemical restraints and a 1:1 sitter using nursing staff Plan: Continue Q4H restraint order, adjust medications for the hopes of removal (6) Protein-calorie malnutrition, severe Impression: - Cachectic on exam, frail appearance, muscle atrophy - Complicating factors of poor social situations in the past, poly-substance abuse, and continued inhalant use - Steady weight loss, under the care of Hospice Plan: Encourage oral intake, sitting up for mealtimes, control symptoms (7) Urinary retention Impression: - Post void residuals of greater than 600 mL last evening, no further problems today - Status post Amitriptyline, recommended to stop as it may have cholenergic effects Plan: Continue to monitor, continue Flomax (8) End of life care Impression: - Under the care of Hospice for this hospital stay - Following the recommendations of Dr. Guerrero - Hospitalist is consulting Plan: Continue with plan, consult via phone for any questions or changes that come about
[2018-09-22] MEDS: LORazepam 0.5 MG TABLET PO SCH ×3 (16:05→21:11)
[2018-09-22] MEDS: MORPHINE SOL 10 MG/0.5 ML SYRINGE PO PRN (17:50)
[2018-09-22] MEDS ORDERED: LIDOCAINE 2% URO-JET 5 ML SYRINGE UR PRN (18:28)
[2018-09-22] MEDS: TAMSULOSIN 0.4 MG CAPSULE PO SCH (21:12)
[2018-09-22] MEDS ORDERED: LEVALBUTEROL 1.25 MG/3 ML NEB INH ONE (23:54)
[2018-09-22] MEDS ORDERED: LEVALBUTEROL 1.25 MG/3 ML NEB INH PRN (23:54)
[2018-09-23] MEDS: HALOPERIDOL 5 MG/ML VIAL IM PRN (00:05)
[2018-09-23] MEDS: HALOPERIDOL 1 MG TABLET PR SCH ×8 (01:01→21:48)
[2018-09-23] MEDS: LORazepam 0.5 MG TABLET PO SCH ×7 (01:02→21:48)
--- NOTE | 2018-09-23 01:57 | TELEPSYCH PHYS NOTE ---
Telepsych Note - CHIEF COMPLAINT/HX OF PRESENT ILLNESS Cheif Complaint and History of Present Illness: Name: Umer Stewart Jr. : 58. 62M Date: 09/23/18 Time: 3:30am Location of patient: [facility] Location of doctor: [facility] This evaluation was conducted via telepsychiatry with the assistance of onsite staff Chief Complaint: agitation History of Present Illness: Pt seen via televideo with the help of onsite staff. Ptis 62 yo male with unclear psychiatric history. Currently medically admitted with hospice care due to End stage COPD. Per staff the pt was initially referred from his Adult Family Home due to agitation and disruptive behaviors. In the ED and hospital he has been noted to exhibit period of agitation, aggression and combativeness requiring chemical and physical restraints. He is a very poor historian. He is confused, disoriented with waxing and waning attention. He reports initially that he is in a mansion, then his home and finally the hospital. He is unaware of the date and also report that he is nearly 64. He initially reported that the current president of the [employer] was [employer] then later [employer]. He starts to answer questions posed by this blurb writer appropriately then gets derailed. He is rambling off topic. Attempts to reorient that pt were limited and unsuccessful. He was able to deny SI/HI nor AVHs. Also denies paranoid or delusional thoughts. He was calm during the evaluation however per staff moments earlier he became highly agitated requiring PRN medications. Pt appears to be delirious. His baseline is not known to this blurb writer however he appears to be delirious. Likely related to his underlying severe medical problems. In the context of his delirium he is confused and disoriented and exhibiting behavioral problems and agitation. Collateral: No family available for collateral at the time of the evaluation. Discussed case with medical staff. SI/ Self harm: Pt denies current SI. HI/Violence: pt has been agitated and combative on the unit requiring chemical and physical restraints. Trauma history: unable to assess Access to weapons: none reported Legal: unknown Psychiatric History/Treatment History: unable to assess Drug/Alcohol History: none reported Medical History reviewed, see chart Medications & Freq: reviewed, see chart Allergies: NKDA Sleep: unclear Family Psych History/History of suicide unable to assess Social History: recently discharged from an [facility] Employment: unemployed Education: unknown Stressors: multiple Strengths/supports: limited Appearance and attire: hospital attire. Attitude and behavior: calm Affect and mood: constricted Association and thought processes: limited, confused Thought content: Denies SI/HI Perception: unable to assess Sensorium, memory, and orientation: AxOx1 Intellectual functioning: unable to assess Insight and judgment: impaired. - PSYCHIATRIC HX/TREATMENT HX Psychiatric: Depression, Anxiety - MEDICAL HX Does the pt have a hx of MRSA?: No Neurological History: TIA Eyes, Ears, Nose, Throat: Chronic sinusitis Cardiovascular: None, High cholesterol, Arrhythmia Respiratory: COPD, Shortness of breath Skin: None Endocrine/Autoimmune: None Gastrointestinal: None Urinary: None Musculoskeletal: Chronic back pain, Other Blood Disorders: None PMH Other: Cervical disc disorder w/radioculopathy, insomnia - HOME MEDICATIONS Home Meds (as last confirmed): Patient History Medication Instructions Recorded Confirmed Tamsulosin [Flomax] 0.4 mg PO 199905/09/17 09/21/18 Amitriptyline HCl 100 mg PO 199904/18/18 09/21/18 Bupropion HCl [Bupropion HCl Sr] 150 mg PO 0800,199909/21/18 09/21/18 Haloperidol 1 mg PO Q4H PRN 09/21/18 09/21/18 Haloperidol 2 mg PO Q4H 09/21/18 09/21/18 LORazepam [Lorazepam] 1 mg PO 1200,1600,1999,09/21/18 09/21/18 LORazepam [Lorazepam] 1 mg PO Q2H PRN 09/21/18 09/21/18 Methadone 10 mg PO 1200 09/21/18 09/21/18 Methadone 15 mg PO 0800,199909/21/18 09/21/18 Sennosides [Senna] 17.2 mg PO BID PRN 09/21/18 09/21/18 guaiFENesin [Mucinex] 600 mg PO 0800 09/21/18 09/21/18 - ALLERGIES Allergies (as last confirmed): Allergies Allergy/AdvReac Type Severity Reaction Status Date / Time No Known Drug Allergies Allergy Verified 06/22/18 14:04 - TREATMENT/PHARMACOLOGICAL RECOMMENDATION Treatment - Pharmacological - Therapy Recommendations: Diagnosis: Delirium, multifactorial Impression/Risk Assessment: 62 yo male with unclear psychiatric history. Currently medically admitted with hospice care due to End stage COPD. He is delirious likely related to his severe underlying medical issues. As his COPD is end stage it is unclear how much improvement in his medical stability and thus his delirium can be achieved. He is exhibiting periods of agitation and aggression which places the pt and staff at high safety risk and needs to be treated. Treatment Recommendation: Pt is currently under hospice care He reportedly is unable to return to his previous [facility] and will require placement Medication reccs: Initiate cross taper off Haldol. Decrease scheduled Haldol to 2mg po Q 4 hours. Start Risperdal 0.25mg po BID If tolerated, increase in 5 days to 0.25mg po AM and 0.5mg po HS Reduced PRN Haldol to 2mg po/IM q 6 hours PRN agitation. l Reduce scheduled Ativan to 0.5mg po Q 4 hours Also reduce PRN Ativan to 1mg po/IM Q 6 hours PRN Ultimately should taper off as the medication could cause further confusion leading to increased agitation in this patient population. Limit staff changes if possible Reorient the pt frequently. Also if possible arrange for family to bring in a familiar item, ie photograph or blanket to provide comfort for the patient. Please re-consult for symptom check and further management. - TIME SPENT & PROVIDER LOCATION Telepsych consultation conducted via videoconferencing: Yes List names and roles of persons who participated in consult: meghan perez med staff (attending) Telepsych Provider Location: [place] Time Telepsych consult began: 03:30 Time Telepsych consult completed: 03:50
[2018-09-23] MEDS: IPRATROPIUM/ALBUTEROL 3 ML NEB INH SCH ×4 (07:30→18:16)
[2018-09-23] MEDS ORDERED: LORazepam 0.5 MG TABLET PR PRN (09:02)
[2018-09-23] MEDS: risperiDONE 0.25 MG TABLET PO SCH ×2 (10:16→21:48)
[2018-09-23] MEDS: METHADONE 5 MG TABLET PO SCH ×3 (10:17→19:25)
[2018-09-23] MEDS: buPROPion SR 150 MG TABLET PO SCH ×2 (10:17→19:25)
[2018-09-23] MEDS: NICOTINE 14 MG PATCH TOP SCH (10:18)
--- NOTE | 2018-09-23 16:01 | PROVIDER PROGRESS NOTE ---
Subjective - Prog Note Date Prog Note Date: 09/23/18 Prog Note Time: 15:58 - Subjective Pt reports feeling: No change Subjective: Patient appears calm, and has been able to eat today. * He is medically cleared for discharge, and has not had any medical complications for this stay. Current Medications - Current Medications Current Medications: Active Medications: Albuterol/Ipratropium (Duoneb) 3 ml INH RTQID [facility] Bupropion HCl (Wellbutrin Sr) 150 mg PO 00,1999 [facility] Haloperidol (Haldol Inj) 4 mg IM Q4H PRN Haloperidol (Haldol) 2 mg OK Q3H [facility] Levalbuterol HCl (Xopenex) 1.25 mg INH Q4H PRN Lidocaine HCl (Xylocaine Uro-Jet 2%) 2.5 ml UR Q6H PRN Lorazepam (Ativan) 0.5 mg PO Q4H [facility] Lorazepam (Ativan) 1 mg [place] Q4H PRN Methadone HCl 10 mg PO 0800,1199 [facility] Methadone HCl 15 mg PO 1999 [facility] Morphine Sulfate (Roxanol) 10 mg PO Q2HR PRN Nicotine (Nicoderm) 1 patch TOP DAILY [facility] Risperidone (Risperdal) 0.25 mg PO BID [facility] Senna (Senokot) 17.2 mg PO BID PRN Tamsulosin HCl (Flomax) 0.4 mg PO 1999 [facility] HOME meds: Tamsulosin [Flomax] 0.4 mg PO 199905/09/17 Amitriptyline HCl 100 mg PO 199904/18/18 Bupropion HCl [Bupropion HCl Sr] 150 mg PO 0800,199909/21/18 Haloperidol 1 mg PO Q4H PRN 09/21/18 Haloperidol 2 mg PO Q4H 09/21/18 LORazepam [Lorazepam] 1 mg PO 1200,1600,1999,09/21/18 LORazepam [Lorazepam] 1 mg PO Q2H PRN 09/21/18 Methadone 10 mg PO 1200 09/21/18 Methadone 15 mg PO 0800,199909/21/18 Sennosides [Senna] 17.2 mg PO BID PRN 09/21/18 guaiFENesin [Mucinex] 600 mg PO 0800 09/21/18 Objective - Vital Signs/Intake & Output Reviewed Vital Signs: Yes Vital Signs: Vital Signs x48h Pulse Pulse Resp BP Pulse Ox 09/23/18 15:29 93 18 150/74 H 93 09/23/18 11:13 84 16 Intake & Output: Intake & Output 09/20/18 09/21/18 09/22/18 09/23/18 23:59 23:59 23:59 23:59 Intake Total 893 299 1747 Output Total 675 2080 1200 Balance -125 -1280 1160 - Objective General Appearance: positive: Alert, Moderate distress, Anxious, Lethargic Eyes Bilateral: positive: No lid inflammation ENT: positive: Dry mucous membranes Neck: positive: No JVD Respiratory: positive: Chest non-tender Cardiovascular: positive: Other (Not examined) Peripheral Pulses: 1+ Radial (R), 1+ Radial (L) Abdomen: positive: Non-tender, No organomegaly Skin: positive: No rash, Warm, Dry, Cyanosis, Pallor Extremities: positive: Non-tender, No pedal edema, Joint swelling Neurologic/Psychiatric: positive: Disoriented to place, Disoriented to time, Weakness, Sensory loss, Slurred/abnml speech (baseline advanced dementia- impulsive at times), Depressed mood/affect ABX Reporting Has patient been on IV antibiotics over the past 48 hours?: No Assessment/Plan - Problem List (1) End stage chronic obstructive pulmonary disease Impression: - Life long inhalant use, cigarette use, with no plans to stop - Oxygen administration is advised, but the patient usually gets it off some how, despite being restrained - Was prescribed Symbicort, albuterol, ventolin HFA, and prednisone - NO current exacerbation during this stay Plan: Continue duo-nebs, encourage oxygen use, monitor for worsening (2) Agitation Impression: - Patient has a history of emotional trauma - Also with end-stage COPD making activity taxing and challenging for any extended period Plan: Continue to follow the recommendations of Dr. Guerrero, monitor for effectiveness (3) Chronic pain Impression: - Several outside clinic visits regarding chronic pain - Documented cervical disc disorder with radiculopathy, low back pain, and trapezius muscle spasms - Also has emotional pain and has lacked a close relationship for much of his life - Tele Psych visit at 0130AM today, advised adjusting lorazepam, and adding Risperadol Plan: Continue to monitor for effectiveness in hopes to remove restraints Qualifiers: Chronic pain type: chronic pain syndrome Qualified Code(s): G89.4 - Chronic pain syndrome (4) History of substance use disorder Impression: - Patient was known to live in [place] and has had a life time of drug abuse - Family has been out of his life for the past several years - Has had Palliative and Hospice care managing his pain medications and chronic diseases Plan: Continue with Methadone, lorazepam and haldol or as per Dr. Guerrero, monitor for improvement in cooperation (5) Urinary retention Impression: - Post void residuals of greater than 600 mL last evening, no further problems today - Status post Amitriptyline, recommended to stop as it may have cholenergic effects Plan: Continue to monitor, continue Flomax (6) Protein-calorie malnutrition, severe Impression: - Cachectic on exam, frail appearance, muscle atrophy - Complicating factors of poor social situations in the past, poly-substance abuse, and continued inhalant use - Steady weight loss, under the care of Hospice Plan: Encourage oral intake, sitting up for mealtimes, control symptoms (7) Physical restraints status Impression: - The patient has made several attempts to leave the nursing unit - Security and ED staff respond - Now has 4 limb restraints, chemical restraints and a 1:1 sitter using nursing staff Plan: Continue Q4H restraint order, adjust medications for the hopes of removal (8) End of life care Impression: - Under the care of Hospice for this hospital stay - Following the recommendations of Dr. Guerrero - Hospitalist is consulting Plan: Continue with plan, consult via phone for any questions or changes that come about
[2018-09-23] MEDS: TAMSULOSIN 0.4 MG CAPSULE PO SCH (19:25)
[2018-09-24] MEDS: HALOPERIDOL 1 MG TABLET PR SCH ×3 (01:03→06:58)
[2018-09-24] MEDS: LORazepam 0.5 MG TABLET PO SCH ×2 (02:10→06:05)
[2018-09-24] MEDS: IPRATROPIUM/ALBUTEROL 3 ML NEB INH SCH ×4 (07:20→18:20)
[2018-09-24] MEDS ORDERED: HALOPERIDOL 5 MG/ML VIAL IM PRN (07:41)
[2018-09-24] MEDS ORDERED: HALOPERIDOL 1 MG TABLET PR SCH (08:00)
[2018-09-24] MEDS: METHADONE 5 MG TABLET PO SCH ×3 (08:03→20:47)
[2018-09-24] MEDS: buPROPion SR 150 MG TABLET PO SCH ×2 (08:04→20:47)
[2018-09-24] MEDS: risperiDONE 0.25 MG TABLET PO SCH ×2 (08:04→20:48)
[2018-09-24] MEDS: NICOTINE 14 MG PATCH TOP SCH (08:04)
[2018-09-24] MEDS: HALOPERIDOL 1 MG TABLET PO SCH ×3 (11:52→20:46)
[2018-09-24] MEDS: LORazepam 0.5 MG TABLET PR PRN (13:37)
--- NOTE | 2018-09-24 15:44 | PROVIDER PROGRESS NOTE ---
Subjective - Subjective Pt reports feeling: Improved Subjective: pt is cooperated today, and appropriately answer the questions followup up psychiatrist consultation, and discussed with Dr. Ca for care plan today, we will discontinue his restraints today with patient agreeing on required behaviors. His scheduled lorazepam is discontinued but the order for 1 mg every 6 hours as needed for anxiety. We will continue his scheduled Haldol at same doses but consider decreasing dose tomorrow if he is doing well. Will anticipate increasing risperidone to 0.5 mg bid on Sunday if pt tolerate. now pt is on 0.25 mg risperidone bid. Current Medications - Current Medications Current Medications: Active Medications Albuterol/Ipratropium (Duoneb) 3 ml INH RTQID [facility] Last Admin: 09/24/18 15:15 Dose: 3 ml Bupropion HCl (Wellbutrin Sr) 150 mg PO 0800,1999 [facility] Last Admin: 09/24/18 08:04 Dose: 150 mg Haloperidol (Haldol Inj) 2 mg IM Q6H PRN PRN Reason: See label comments Haloperidol (Haldol) 2 mg PO Q4H [facility] Last Admin: 09/24/18 11:52 Dose: 2 mg Levalbuterol HCl (Xopenex) 1.25 mg INH Q4H PRN PRN Reason: Shortness of Air/Wheezing Last Admin: 09/23/18 00:00 Dose: 1.25 mg Lidocaine HCl (Xylocaine Uro-Jet 2%) 2.5 ml UR Q6H PRN PRN Reason: PAIN Last Admin: 09/24/18 06:00 Dose: 2.5 ml Lorazepam (Ativan) 1 mg [place] Q6H PRN PRN Reason: Anxiety Last Admin: 09/24/18 13:37 Dose: 1 mg Methadone HCl () 10 mg PO 0800,1200 [facility] Last Admin: 09/24/18 11:52 Dose: 10 mg Methadone HCl () 15 mg PO 1999 [facility] Last Admin: 09/23/18 19:25 Dose: 15 mg Morphine Sulfate (Roxanol) 10 mg PO Q2HR PRN PRN Reason: PER PHYSICIAN ORDER Last Admin: 09/22/18 17:50 Dose: 10 mg Nicotine (Nicoderm) 1 patch TOP DAILY [facility] Last Admin: 09/24/18 08:04 Dose: 1 patch Risperidone (Risperdal) 0.25 mg PO BID [facility] Last Admin: 09/24/18 08:04 Dose: 0.25 mg Senna (Senokot) 17.2 mg PO BID PRN PRN Reason: Constipation Tamsulosin HCl (Flomax) 0.4 mg PO 1999 [facility] Last Admin: 09/23/18 19:25 Dose: 0.4 mg Tamsulosin [Flomax] 0.4 mg PO 199905/09/17 Amitriptyline HCl 100 mg PO 199904/18/18 Bupropion HCl [Bupropion HCl Sr] 150 mg PO 08,199909/21/18 Haloperidol 1 mg PO Q4H PRN 09/21/18 Haloperidol 2 mg PO Q4H 09/21/18 LORazepam [Lorazepam] 1 mg PO 1200,1600,1999,09/21/18 LORazepam [Lorazepam] 1 mg PO Q2H PRN 09/21/18 Methadone 10 mg PO 1200 09/21/18 Methadone 15 mg PO 08,199909/21/18 Sennosides [Senna] 17.2 mg PO BID PRN 09/21/18 guaiFENesin [Mucinex] 600 mg PO 0800 09/21/18 Objective - Vital Signs/Intake & Output Reviewed Vital Signs: Yes Vital Signs: Vital Signs x48h Temp Pulse Pulse Resp BP Pulse Ox 09/24/18 11:35 97 16 09/24/18 11:12 37.0 C 70 14 112/68 97 09/24/18 08:51 36.8 C Intake & Output: Intake & Output 09/21/18 09/22/18 09/23/18 09/24/18 23:59 23:59 23:59 23:59 Intake Total 055 077 1521 1450 Output Total 675 2080 2200 875 Balance -125 -1280 1100 575 - Objective General Appearance: positive: No acute distress, Alert. negative: Lethargic Eyes Bilateral: positive: Normal inspection, PERRL, No lid inflammation, Conjunctivae nml ENT: positive: ENT inspection nml, Pharynx nml, No signs of dehydration. negative: Purulent nasal drainage, Pharyngeal erythema, Oral lesions Neck: positive: Nml inspection, Thyroid nml, No JVD, Trachea midline. negative: Thyromegaly, Lymphadenopathy (R), Lymphadenopathy (L), Stiff neck, Swelling/bruising, Tracheal deviation Respiratory: positive: Chest non-tender, No respiratory distress, Breath sounds nml. negative: Wheezes, Rales, Rhonchi Cardiovascular: positive: Regular rate & rhythm, No murmur, No gallop. negative: Irregularly irregular, Extrasystoles, Tachycardia, Bradycardia, JVD present, Systolic murmur, Diastolic murmur Peripheral Pulses: 2+ Radial (R), 2+ Radial (L), 2+ Dorsalis pedis (R), 2+ Dorsalis pedis (L) Abdomen: positive: Non-tender, No organomegaly, Nml bowel sounds, No distention. negative: Tenderness, Guarding, Rebound Back: positive: Nml inspection. negative: CVA tenderness (R), CVA tenderness (L) Skin: positive: Color nml, No rash, Warm, Dry. negative: Cyanosis, Diaphoresis, Pallor Extremities: positive: Non-tender, Full ROM, Nml appearance. negative: Calf tenderness, Joint swelling, Antonio's sign/cords Neurologic/Psychiatric: negative: Weakness, Sensory loss, Facial droop, Slurred/abnml speech, Depressed mood/affect ABX Reporting Has patient been on IV antibiotics over the past 48 hours?: No Assessment/Plan - Problem List (1) End stage COPD Impression: (1) End stage chronic obstructive pulmonary disease stable, pt did not present SOB, cough, 97% sat with 2 liter of O2 continue Duoneb PRN, supplement of O2 PRN continue hospice care (2) Agitation Impression: pt had tele-psy consult and hospice consult per discussed with pt's hospice, Dr Guerrero, discontinue his restraints today with patient agreeing on required behaviors. His scheduled lorazepam is discontinued but the order for 1 mg every 6 hours as needed for anxiety. We will continue his scheduled Haldol at same doses but consider decreasing dose tomorrow if he is doing well. Will anticipate increasing risperidone to 0.5 mg bid on Sunday if pt tolerate. now pt is on 0.25 mg risperidone bid. (3) Chronic pain stable, pt did not present SOB, cough (4) History of substance use disorder stable from agitation, continue current management plan as above (5) Urinary retention Impression: stable, and continue Flomax (6) Protein-calorie malnutrition, severe Impression: stable, Encourage oral intake, sitting up for mealtimes, control symptoms (7) Physical restraints status Impression: discontinue today per, Dr. Guerrero's recommendation continue nurse care and support (8) End of life care Impression: consult with Dr. Guerrero, and followup, and Continue with plan
[2018-09-24] MEDS: MORPHINE SOL 10 MG/0.5 ML SYRINGE PO PRN (17:47)
[2018-09-24] MEDS: TAMSULOSIN 0.4 MG CAPSULE PO SCH (20:47)
[2018-09-25] MEDS: HALOPERIDOL 1 MG TABLET PO SCH ×7 (06:39→20:48)
[2018-09-25] MEDS: IPRATROPIUM/ALBUTEROL 3 ML NEB INH SCH ×4 (07:41→18:36)
[2018-09-25] MEDS: NICOTINE 14 MG PATCH TOP SCH (08:27)
[2018-09-25] MEDS: METHADONE 5 MG TABLET PO SCH ×3 (08:27→20:48)
[2018-09-25] MEDS: buPROPion SR 150 MG TABLET PO SCH ×2 (08:28→20:47)
[2018-09-25] MEDS: risperiDONE 0.25 MG TABLET PO SCH ×2 (08:28→20:48)
[2018-09-25] MEDS ORDERED: risperiDONE 0.25 MG TABLET PO ONE (11:00)
--- NOTE | 2018-09-25 16:29 | PROVIDER PROGRESS NOTE ---
Subjective - Prog Note Date Prog Note Date: 09/25/18 - Subjective Pt reports feeling: No change Subjective: pt still present confused and agitation. Per Dr. uGerrero discussion,we will increase his risperidone to 0.5 mg bid on today based on his escalation in symptoms in the evening and night Current Medications - Current Medications Current Medications: Active Medications Albuterol/Ipratropium (Duoneb) 3 ml INH RTQID [facility] Last Admin: 09/25/18 18:36 Dose: Not Given Bupropion HCl (Wellbutrin Sr) 150 mg PO 0800,1999 [facility] Last Admin: 09/25/18 08:28 Dose: 150 mg Haloperidol (Haldol Inj) 2 mg IM Q6H PRN PRN Reason: See label comments Last Admin: 09/24/18 16:40 Dose: 2 mg Haloperidol (Haldol) 2 mg PO Q4H [facility] Last Admin: 09/25/18 17:43 Dose: Not Given Lactobacillus Rhamnosus (Culturelle) 1 cap PO DAILY [facility] Levalbuterol HCl (Xopenex) 1.25 mg INH Q4H PRN PRN Reason: Shortness of Air/Wheezing Last Admin: 09/23/18 00:00 Dose: 1.25 mg Lidocaine HCl (Xylocaine Uro-Jet 2%) 2.5 ml UR Q6H PRN PRN Reason: PAIN Last Admin: 09/24/18 06:00 Dose: 2.5 ml Lorazepam (Ativan) 1 mg [place] Q6H PRN PRN Reason: Anxiety Last Admin: 09/24/18 13:37 Dose: 1 mg Methadone HCl () 10 mg PO 0800,1199 [facility] Last Admin: 09/25/18 11:04 Dose: 10 mg Methadone HCl () 15 mg PO 1999 [facility] Last Admin: 09/24/18 20:47 Dose: 15 mg Morphine Sulfate (Roxanol) 10 mg PO Q2HR PRN PRN Reason: PER PHYSICIAN ORDER Last Admin: 09/22/18 17:50 Dose: 10 mg Multivitamins/Minerals (Theragran M) 1 tab PO DAILYWM [facility] Nicotine (Nicoderm) 1 patch TOP DAILY [facility] Last Admin: 09/25/18 08:27 Dose: 1 patch Ondansetron HCl (Zofran Inj) 4 mg IVP Q4HR PRN PRN Reason: Nausea / Vomiting Risperidone (Risperdal) 0.5 mg PO BID [facility] Senna (Senokot) 17.2 mg PO BID PRN PRN Reason: Constipation Last Admin: 09/24/18 20:48 Dose: 17.2 mg Tamsulosin HCl (Flomax) 0.4 mg PO 1999 [facility] Last Admin: 09/24/18 20:47 Dose: 0.4 mg Tamsulosin [Flomax] 0.4 mg PO 199905/09/17 Amitriptyline HCl 100 mg PO 199904/18/18 Bupropion HCl [Bupropion HCl Sr] 150 mg PO 0800,199909/21/18 Haloperidol 1 mg PO Q4H PRN 09/21/18 Haloperidol 2 mg PO Q4H 09/21/18 LORazepam [Lorazepam] 1 mg PO 1200,1600,1999,09/21/18 LORazepam [Lorazepam] 1 mg PO Q2H PRN 09/21/18 Methadone 10 mg PO 1200 09/21/18 Methadone 15 mg PO 08,199909/21/18 Sennosides [Senna] 17.2 mg PO BID PRN 09/21/18 guaiFENesin [Mucinex] 600 mg PO 0800 09/21/18 Objective - Vital Signs/Intake & Output Vital Signs: Vital Signs x48h Temp Pulse Pulse Resp BP Pulse Ox 09/25/18 11:36 90 16 09/25/18 11:22 37.1 C 88 16 130/77 98 Intake & Output: Intake & Output 09/22/18 09/23/18 09/24/18 09/25/18 23:59 23:59 23:59 23:59 Intake Total 800 3300 1890 1600 Output Total 2080 2200 1075 500 Balance -1280 1728 542 0709 - Objective General Appearance: positive: Alert, Mild distress. negative: Lethargic Eyes Bilateral: positive: Normal inspection, PERRL, No lid inflammation, Conjunctivae nml ENT: positive: ENT inspection nml, Pharynx nml, No signs of dehydration. negative: Purulent nasal drainage, Pharyngeal erythema, Oral lesions Neck: positive: Nml inspection, Thyroid nml, No JVD, Trachea midline. negative: Thyromegaly, Lymphadenopathy (R), Stiff neck, Swelling/bruising, Tracheal deviation Respiratory: positive: Chest non-tender, No respiratory distress. negative: Wheezes, Rales, Rhonchi Cardiovascular: positive: Regular rate & rhythm, No murmur, No gallop. negative: Irregularly irregular, Extrasystoles, Tachycardia, Bradycardia, JVD present, Systolic murmur, Diastolic murmur Peripheral Pulses: 2+ Radial (R), 2+ Radial (L), 2+ Dorsalis pedis (R), 2+ Dorsalis pedis (L) Abdomen: positive: Non-tender, No organomegaly, Nml bowel sounds, No distention. negative: Tenderness, Guarding, Rebound Back: positive: Nml inspection. negative: CVA tenderness (R), CVA tenderness (L) Skin: positive: Color nml, No rash, Warm, Dry. negative: Cyanosis, Diaphoresis, Pallor Extremities: positive: Non-tender, Full ROM, Nml appearance. negative: Calf tenderness, Joint swelling, Antonio's sign/cords Neurologic/Psychiatric: positive: Sensation nml. negative: Weakness, Sensory loss, Facial droop, Slurred/abnml speech ABX Reporting Has patient been on IV antibiotics over the past 48 hours?: No Assessment/Plan - Problem List (1) End stage COPD Impression: (1) End stage chronic obstructive pulmonary disease 09/25 99% sat on room air, stable. stable, pt did not present SOB, cough, 97% sat with 2 liter of O2 continue Duoneb PRN, supplement of O2 PRN continue hospice care (2) Agitation Impression: 09/25 pt still present confused and agitation. increase his risperidone to 0.5 mg bid continue restraint, will evaluation pt for every 24 hours pt had tele-psy consult and hospice consult per discussed with pt's hospice, Dr Guerrero, discontinue his restraints today with patient agreeing on required behaviors. His scheduled lorazepam is discontinued but the order for 1 mg every 6 hours as needed for anxiety. We will continue his scheduled Haldol at same doses but consider decreasing dose tomorrow if he is doing well. Will anticipate increasing risperidone to 0.5 mg bid on Sunday if pt tolerate. now pt is on 0.25 mg risperidone bid. (3) Chronic pain stable, pt did not present SOB, cough (4) History of substance use disorder stable from agitation, continue current management plan as above (5) Urinary retention Impression: stable, and continue Flomax (6) Protein-calorie malnutrition, severe Impression: stable, Encourage oral intake, sitting up for mealtimes, control symptoms (7) Physical restraints status Impression: 09/25, restraints, Q24 H evaluation discontinue today per, Dr. Guerrero's recommendation continue nurse care and support
[2018-09-25] MEDS: LORazepam 0.5 MG TABLET PR PRN ×2 (17:41→20:47)
[2018-09-25] MEDS ORDERED: ONDANSETRON 4 MG/2 ML VIAL IVP PRN (18:27)
[2018-09-25] MEDS: MULTIVITAMIN W/MINERALS TABLET PO SCH (18:48)
[2018-09-25] MEDS: ONDANSETRON ODT 4 MG TABLET TL PRN (19:41)
[2018-09-25] MEDS: TAMSULOSIN 0.4 MG CAPSULE PO SCH (20:48)
[2018-09-26] MEDS: HALOPERIDOL 1 MG TABLET PO SCH ×6 (00:11→20:05)
[2018-09-26] MEDS: IPRATROPIUM/ALBUTEROL 3 ML NEB INH SCH ×4 (07:25→18:01)
[2018-09-26] MEDS: risperiDONE 0.25 MG TABLET PO SCH ×2 (08:02→20:49)
[2018-09-26] MEDS: MULTIVITAMIN W/MINERALS TABLET PO SCH (08:02)
[2018-09-26] MEDS: buPROPion SR 150 MG TABLET PO SCH ×2 (08:02→20:05)
[2018-09-26] MEDS: LACTOBACILLUS RHAMNOSUS GG CAPSULE PO SCH (08:02)
[2018-09-26] MEDS: NICOTINE 14 MG PATCH TOP SCH (08:03)
[2018-09-26] MEDS: METHADONE 5 MG TABLET PO SCH ×3 (08:03→20:13)
--- NOTE | 2018-09-26 16:21 | PROVIDER PROGRESS NOTE ---
Subjective - Prog Note Date Prog Note Date: 09/26/18 - Subjective Pt reports feeling: No change Subjective: pt is still confused with agitation on last night. Per [place] [facility] evaluation, pt is free restrain Current Medications - Current Medications Current Medications: Active Medications Albuterol/Ipratropium (Duoneb) 3 ml INH RTQID [facility] Last Admin: 09/26/18 12:49 Dose: 3 ml Bupropion HCl (Wellbutrin Sr) 150 mg PO 00,1999 [facility] Last Admin: 09/26/18 08:02 Dose: 150 mg Haloperidol (Haldol Inj) 2 mg IM Q6H PRN PRN Reason: See label comments Last Admin: 09/24/18 16:40 Dose: 2 mg Haloperidol (Haldol) 2 mg PO Q4H [facility] Last Admin: 09/26/18 17:01 Dose: 2 mg Lactobacillus Rhamnosus (Culturelle) 1 cap PO DAILY [facility] Last Admin: 09/26/18 08:02 Dose: 1 cap Levalbuterol HCl (Xopenex) 1.25 mg INH Q4H PRN PRN Reason: Shortness of Air/Wheezing Last Admin: 09/23/18 00:00 Dose: 1.25 mg Lidocaine HCl (Xylocaine Uro-Jet 2%) 2.5 ml UR Q6H PRN PRN Reason: PAIN Last Admin: 09/24/18 06:00 Dose: 2.5 ml Lorazepam (Ativan) 1 mg [place] Q6H PRN PRN Reason: Anxiety Last Admin: 09/25/18 20:47 Dose: 1 mg Methadone HCl () 10 mg PO 0800,1200 [facility] Last Admin: 09/26/18 13:41 Dose: 10 mg Methadone HCl () 15 mg PO 1999 [facility] Last Admin: 09/25/18 20:48 Dose: 15 mg Morphine Sulfate (Roxanol) 10 mg PO Q2HR PRN PRN Reason: PER PHYSICIAN ORDER Last Admin: 09/22/18 17:50 Dose: 10 mg Multivitamins/Minerals (Theragran M) 1 tab PO DAILYWM [facility] Last Admin: 09/26/18 08:02 Dose: 1 tab Nicotine (Nicoderm) 1 patch TOP DAILY [facility] Last Admin: 09/26/18 08:03 Dose: 1 patch Ondansetron HCl (Zofran Odt) 4 mg TL Q4HR PRN PRN Reason: Nausea / Vomiting Last Admin: 09/25/18 19:41 Dose: 4 mg Risperidone (Risperdal) 0.5 mg PO BID [facility] Last Admin: 09/26/18 08:02 Dose: 0.5 mg Senna (Senokot) 17.2 mg PO BID PRN PRN Reason: Constipation Last Admin: 09/24/18 20:48 Dose: 17.2 mg Tamsulosin HCl (Flomax) 0.4 mg PO 1999 [facility] Last Admin: 09/25/18 20:48 Dose: 0.4 mg Tamsulosin [Flomax] 0.4 mg PO 199905/09/17 Amitriptyline HCl 100 mg PO 199904/18/18 Bupropion HCl [Bupropion HCl Sr] 150 mg PO 08,199909/21/18 Haloperidol 1 mg PO Q4H PRN 09/21/18 Haloperidol 2 mg PO Q4H 09/21/18 LORazepam [Lorazepam] 1 mg PO 1200,1600,1999,09/21/18 LORazepam [Lorazepam] 1 mg PO Q2H PRN 09/21/18 Methadone 10 mg PO 1200 09/21/18 Methadone 15 mg PO 0800,199909/21/18 Sennosides [Senna] 17.2 mg PO BID PRN 09/21/18 guaiFENesin [Mucinex] 600 mg PO 0800 09/21/18 Objective - Vital Signs/Intake & Output Reviewed Vital Signs: Yes Vital Signs: Vital Signs x48h Pulse Resp 09/26/18 12:49 90 14 Intake & Output: Intake & Output 09/23/18 09/24/18 09/25/18 09/26/18 23:59 23:59 23:59 23:59 Intake Total 3300 1890 2020 2380 Output Total 2200 1075 900 800 Balance 2585 057 9141 1580 - Objective General Appearance: positive: No acute distress, Alert. negative: Lethargic Eyes Bilateral: positive: Normal inspection, PERRL, No lid inflammation, Conjunctivae nml ENT: positive: ENT inspection nml, Pharynx nml, No signs of dehydration. negative: Purulent nasal drainage, Pharyngeal erythema, Oral lesions Neck: positive: Nml inspection, Thyroid nml, No JVD, Trachea midline. negative: Thyromegaly, Lymphadenopathy (R), Lymphadenopathy (L), Stiff neck, Swelling/bruising, Tracheal deviation Respiratory: positive: Chest non-tender, No respiratory distress, Breath sounds nml. negative: Wheezes, Rales, Rhonchi Cardiovascular: positive: Regular rate & rhythm, No murmur, No gallop. negative: Irregularly irregular, Extrasystoles, Tachycardia, Bradycardia, JVD present, Systolic murmur, Diastolic murmur Peripheral Pulses: 2+ Radial (R), 2+ Radial (L), 2+ Dorsalis pedis (R), 2+ Dorsalis pedis (L) Abdomen: positive: Non-tender, No organomegaly, Nml bowel sounds, No distention. negative: Tenderness, Guarding, Rebound Back: positive: Nml inspection. negative: CVA tenderness (R), CVA tenderness (L) Skin: positive: Color nml, No rash, Warm, Dry. negative: Cyanosis, Diaphoresis, Pallor Extremities: positive: Non-tender, Full ROM. negative: Calf tenderness, Antonio's sign/cords Neurologic/Psychiatric: negative: Sensory loss, Facial droop, Slurred/abnml speech ABX Reporting Has patient been on IV antibiotics over the past 48 hours?: No Sepsis Event Note (H) - Evaluation Current Stage of Sepsis: Ruled out Assessment/Plan - Problem List (1) End stage COPD Impression: (1) End stage chronic obstructive pulmonary disease 09/26 stable, 99% sats on 1 liter of O2 09/25 99% sat on room air, stable. stable, pt did not present SOB, cough, 97% sat with 2 liter of O2 continue Duoneb PRN, supplement of O2 PRN continue hospice care (2) Agitation Impression: 09/26 pt still present confused and agitation, continue manage pt, follow up [facility] evaluation 09/25 pt still present confused and agitation. increase his risperidone to 0.5 mg bid continue restraint, will evaluation pt for every 24 hours pt had tele-psy consult and hospice consult per discussed with pt's hospice, Dr Guerrero, discontinue his restraints today with patient agreeing on required behaviors. His scheduled lorazepam is discontinued but the order for 1 mg every 6 hours as needed for anxiety. We will continue his scheduled Haldol at same doses but consider decreasing dose tomorrow if he is doing well. Will anticipate increasing risperidone to 0.5 mg bid on Sunday if pt tolerate. now pt is on 0.25 mg risperidone bid. (3) Chronic pain stable, continue pain management (4) History of substance use disorder stabl, continue current management plan (5) Urinary retention Impression: stable, and continue Flomax (6) Protein-calorie malnutrition, severe Impression: stable, Encourage oral intake
[2018-09-26] MEDS: ONDANSETRON ODT 4 MG TABLET TL PRN (20:03)
[2018-09-26] MEDS: TAMSULOSIN 0.4 MG CAPSULE PO SCH (20:08)
[2018-09-27] MEDS: HALOPERIDOL 1 MG TABLET PO SCH ×6 (03:19→21:49)
[2018-09-27 07:35] VITALS: BP 128/88
[2018-09-27] MEDS: buPROPion SR 150 MG TABLET PO SCH ×2 (09:20→21:49)
[2018-09-27] MEDS: METHADONE 5 MG TABLET PO SCH ×3 (09:21→21:48)
[2018-09-27] MEDS: risperiDONE 0.25 MG TABLET PO SCH ×2 (09:22→21:48)
[2018-09-27] MEDS: MULTIVITAMIN W/MINERALS TABLET PO SCH (09:26)
[2018-09-27] MEDS: IPRATROPIUM/ALBUTEROL 3 ML NEB INH SCH ×4 (09:30→23:13)
--- NOTE | 2018-09-27 14:24 | PROVIDER PROGRESS NOTE ---
Subjective - Prog Note Date Prog Note Date: 09/27/18 - Subjective Subjective: pt still some confused but cooperative today. we explained to pt, we continue to seek placement for him meanwhile he will no longer have restraints. pt complain of left quadrant abdominal pain for three days, he state he only report it today, he denies N/V/D Current Medications - Current Medications Current Medications: Active Medications Albuterol/Ipratropium (Duoneb) 3 ml INH RTQID [facility] Last Admin: 09/27/18 13:15 Dose: 3 ml Bupropion HCl (Wellbutrin Sr) 150 mg PO 0800,1999 [facility] Last Admin: 09/27/18 09:20 Dose: 150 mg Haloperidol (Haldol Inj) 2 mg IM Q6H PRN PRN Reason: See label comments Last Admin: 09/24/18 16:40 Dose: 2 mg Haloperidol (Haldol) 2 mg PO Q4H [facility] Last Admin: 09/27/18 09:20 Dose: 2 mg Lactobacillus Rhamnosus (Culturelle) 1 cap PO DAILY [facility] Last Admin: 09/26/18 08:02 Dose: 1 cap Levalbuterol HCl (Xopenex) 1.25 mg INH Q4H PRN PRN Reason: Shortness of Air/Wheezing Last Admin: 09/23/18 00:00 Dose: 1.25 mg Lidocaine HCl (Xylocaine Uro-Jet 2%) 2.5 ml UR Q6H PRN PRN Reason: PAIN Last Admin: 09/24/18 06:00 Dose: 2.5 ml Lorazepam (Ativan) 1 mg MA Q6H PRN PRN Reason: Anxiety Last Admin: 09/25/18 20:47 Dose: 1 mg Methadone HCl () 10 mg PO 0800,1200 [facility] Last Admin: 09/27/18 09:21 Dose: 10 mg Methadone HCl () 15 mg PO 1999 [facility] Last Admin: 09/26/18 20:13 Dose: 15 mg Morphine Sulfate (Roxanol) 10 mg PO Q2HR PRN PRN Reason: PER PHYSICIAN ORDER Last Admin: 09/22/18 17:50 Dose: 10 mg Multivitamins/Minerals (Theragran M) 1 tab PO DAILYWM [facility] Last Admin: 09/27/18 09:26 Dose: 1 tab Nicotine (Nicoderm) 1 patch TOP DAILY [facility] Last Admin: 09/26/18 08:03 Dose: 1 patch Ondansetron HCl (Zofran Odt) 4 mg TL Q4HR PRN PRN Reason: Nausea / Vomiting Last Admin: 09/26/18 20:03 Dose: 4 mg Risperidone (Risperdal) 0.5 mg PO BID [facility] Last Admin: 09/27/18 09:22 Dose: 0.5 mg Senna (Senokot) 17.2 mg PO BID PRN PRN Reason: Constipation Last Admin: 09/24/18 20:48 Dose: 17.2 mg Tamsulosin HCl (Flomax) 0.4 mg PO 1999 [facility] Last Admin: 09/26/18 20:08 Dose: 0.4 mg Tamsulosin [Flomax] 0.4 mg PO 199905/09/17 Amitriptyline HCl 100 mg PO 199904/18/18 Bupropion HCl [Bupropion HCl Sr] 150 mg PO 0800,199909/21/18 Haloperidol 1 mg PO Q4H PRN 09/21/18 Haloperidol 2 mg PO Q4H 09/21/18 LORazepam [Lorazepam] 1 mg PO 1200,1600,1999,09/21/18 LORazepam [Lorazepam] 1 mg PO Q2H PRN 09/21/18 Methadone 10 mg PO 1200 09/21/18 Methadone 15 mg PO 0800,199909/21/18 Sennosides [Senna] 17.2 mg PO BID PRN 09/21/18 guaiFENesin [Mucinex] 600 mg PO 0800 09/21/18 Objective - Vital Signs/Intake & Output Reviewed Vital Signs: Yes Vital Signs: Vital Signs x48h Temp Pulse Pulse Resp BP Pulse Ox 09/27/18 13:15 81 16 09/27/18 09:30 84 16 09/27/18 07:34 36.9 C 92 18 128/88 H 93 Intake & Output: Intake & Output 09/24/18 09/25/18 09/26/18 09/27/18 23:59 23:59 23:59 23:59 Intake Total 1889 2019 3140 750 Output Total 0864 263 5130 200 Balance 815 1120 2040 550 - Objective General Appearance: positive: No acute distress, Alert. negative: Lethargic Eyes Bilateral: positive: Normal inspection, PERRL, No lid inflammation, Conjunctivae nml ENT: positive: ENT inspection nml, Pharynx nml, No signs of dehydration. negative: Purulent nasal drainage, Pharyngeal erythema, Oral lesions Neck: positive: Nml inspection, Thyroid nml, No JVD, Trachea midline. negative: Thyromegaly, Lymphadenopathy (R), Lymphadenopathy (L), Stiff neck, Swelling/bruising, Tracheal deviation Respiratory: positive: Chest non-tender, No respiratory distress. negative: Wheezes, Rales Cardiovascular: positive: Regular rate & rhythm, No murmur, No gallop. negative: Irregularly irregular, Extrasystoles, Tachycardia, Bradycardia, JVD present, Systolic murmur, Diastolic murmur Peripheral Pulses: 2+ Radial (R), 2+ Radial (L), 2+ Dorsalis pedis (R), 2+ Dorsalis pedis (L) Abdomen: positive: Non-tender, No organomegaly, Nml bowel sounds, No distention, Tenderness. negative: Guarding, Rebound Back: positive: Nml inspection. negative: CVA tenderness (R), CVA tenderness (L) Skin: positive: Color nml, No rash, Warm, Dry. negative: Cyanosis, Diaphoresis, Pallor Extremities: positive: Non-tender, Full ROM, Nml appearance. negative: Calf tenderness, Joint swelling, Antonio's sign/cords Neurologic/Psychiatric: positive: Motor nml, Sensation nml. negative: Weakness, Sensory loss, Facial droop, Slurred/abnml speech, Depressed mood/affect ABX Reporting Has patient been on IV antibiotics over the past 48 hours?: No Sepsis Event Note (H) - Evaluation Current Stage of Sepsis: Ruled out Assessment/Plan - Problem List (1) End stage COPD Impression: 09/27, stable 09/26 stable, 99% sats on 1 liter of O2 09/25 99% sat on room air, stable. 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 pt is cooperative today 09/26 pt still present confused and agitation, continue manage pt, follow up [facility] evaluation 09/25 pt still present confused and agitation. increase his risperidone to 0.5 mg bid continue restraint, will evaluation pt for every 24 hours pt had tele-psy consult and hospice consult per discussed with pt's hospice, Dr Guerrero, discontinue his restraints today with patient agreeing on required behaviors. His scheduled lorazepam is discontinued but the order for 1 mg every 6 hours as needed for anxiety. We will continue his scheduled Haldol at same doses but consider decreasing dose tomorrow if he is doing well. Will anticipate increasing risperidone to 0.5 mg bid on Sunday if pt tolerate. now pt is on 0.25 mg risperidone bid. (3) Chronic pain stable, continue pain management (4) History of substance use disorder stabl, continue current management plan (5) Urinary retention Impression: stable, and continue Flomax (6) Protein-calorie malnutrition, severe Impression: stable, Encourage oral intake (7) left quadrant abdominal pain pt complaint left quadrant abdominal pain for three days but denies N/V/D. pt has normal bowel sound at all quadrants. pt present tenderness of left quadrant, small mass at left quadrant. plan US of abdomen, will followup
[2018-09-27] MEDS: NICOTINE 14 MG PATCH TOP SCH (16:04)
[2018-09-27] MEDS: LACTOBACILLUS RHAMNOSUS GG CAPSULE PO SCH (17:00)
[2018-09-27] MEDS: TAMSULOSIN 0.4 MG CAPSULE PO SCH (21:49)
--- NOTE | 2018-09-27 22:59 | Ultrasound Report ---
Reason: pt complain left quadrant abdominal pain Procedure Date: 09/27/2018 Accession Number: [id number] / [id number] Procedure: US - Abdomen Complete CPT Code: FULL RESULT: EXAM: ABDOMEN ULTRASOUND EXAM DATE: 09/27/2018 08:10 PM. CLINICAL HISTORY: Pt complain left quadrant abdominal pain. COMPARISON: ABDOMEN COMPLETE 07/16/2017 7:53 AM. TECHNIQUE: Real-time scanning was performed with static images obtained. FINDINGS: Liver: Normal in size and echotexture. 12.5 cm. Main portal vein flow: Hepatopetal. Gallbladder: Normal. No stones, wall thickening, or sonographic Hinton's sign. Biliary System: Common bile duct measures 4.1 mm. There is focal dilatation of the distal common bile duct up to 11 mm. No intrahepatic or extrahepatic ductal dilatation. Pancreas: Visualized portion is unremarkable. Kidneys: Right: 8.9 cm longitudinally. Normal. No contour-deforming mass, stones, or hydronephrosis. Left: 9.8 cm longitudinally. Normal. No contour-deforming mass, stones, or hydronephrosis. There is a medial cyst measuring 1.7 x 1.3 cm. Spleen: 9 x 3.2 x 7.2 cm. Normal in size and echotexture. Aorta and Inferior Vena Cava: Unremarkable. Other: There is trace pericardial effusion. There is a homogeneous solid mass between the liver and right kidney measuring 2.3 x 1.8 x 2.2 cm. This may be arising from the right adrenal gland although conceivably this could be intraparenchymal of the liver. IMPRESSION: 1. Solid mass between the liver and right kidney as described which may be related to the right adrenal gland. Definite solid lesion within the liver is not excluded. 2. Focal dilatation of the distal common bile duct. No common bile duct stones. 3. Normal-appearing gallbladder. RADIA
[2018-09-28] MEDS ORDERED: HALOPERIDOL 5 MG/ML VIAL ONE (02:23)
--- NOTE | 2018-09-30 21:25 | DISCHARGE SUMMARY ---
"Discharge Summary Admit Date: 09/20/18 Discharge Date: 09/27/18 (left AMA) Discharging Provider: Dr Carlos Primary Care Provider: Sergo Guerrero MD Condition at Discharge: Good Discharge Disposition: 07 Against Medical Advice - DIAGNOSES Admission Diagnoses: (1) Agitation (2) End stage COPD (3) Chronic pain Discharge Diagnoses with Status of Each Condition: (1) End stage COPD, O2 dependent, stable (2) Agitation, Improved (3) Chronic pain, Stable (4) History of substance use disorder, Stable (5) Urinary retention, Stable (6) Protein-calorie malnutrition, severe, Stable (7) Left quadrant abdominal pain (8) Right Renal mass fady 19x[address], Stable (9) Left lung base dense mass vs infiltrate fady 49x[address], Stable - HPI History of Present Illness: Patient is a 62 y/o male who is in hospice for End stage COPD. He presented to the [facility] ED today via EMS with agitation and worsening confusion. As a result of going confusion, he has been unable to manage his medications on his own at home. Consequently he was placed in an adult family home about 2 weeks ago. It is reported that he has been very forgetful lately. He has been disoriented, delusional and paranoid for the past 2 days. He claims he is at the adult senior living against his will and does not want to go back or stay there. That has been the basis of the escalated agitation today. At bedside, he appears calm after administration of ativan and haldol. He is on 2L Oxygen N/C with an O2Sat of 98%. He does not appear to be in any respiratory distress. He denies chest pain, nausea, vomiting, fever or chills. As a result of the agitation, he is being admitted for further management. - CONSULTS | PROCEDURES Consultations: Tele-Psych, [facility] - HOSPITAL COURSE Hospital Course: Mr. Rell Stewart is a 62-year-old with end-stage COPD that is O2 dependent and seeing hospice for which agitation was noted and for which she was brought in for. Patient was placed on antipsychotics as well as Ativan and Haldol. Patient was started on risperidone with titration as guided by tele psychiatry, [facility] had evaluated patient and was deemed not a danger to himself and essentially was competent to make his own decisions. Patient had wanted to leave to get something a and come back and was given AMA to sign which he did. RN thoroughly explained that if he signed out AMA that placement would be d ifficult for him as he would have to get readmitted through the ER. Patient after being told this continue to express desires to leave and did sign AMA after all. - ALLERGIES Allergies/Adverse Reactions: Allergies Allergy/AdvReac Type Severity Reaction Status Date / Time No Known Drug Allergies Allergy Verified 09/27/18 23:56 - MEDICATIONS Home Medications: Ambulatory Orders Medication Instructions Recorded Confirmed Tamsulosin [Flomax] 0.4 mg PO 199905/09/17 09/21/18 Amitriptyline HCl 100 mg PO 199904/18/18 09/21/18 Bupropion HCl [Bupropion HCl Sr] 150 mg PO 08,199909/21/18 09/21/18 Haloperidol 1 mg PO Q4H PRN 09/21/18 09/21/18 Haloperidol 2 mg PO Q4H 09/21/18 09/21/18 LORazepam [Lorazepam] 1 mg PO 1200,1600,1999,09/21/18 09/21/18 LORazepam [Lorazepam] 1 mg PO Q2H PRN 09/21/18 09/21/18 Methadone 10 mg PO 1200 09/21/18 09/21/18 Methadone 15 mg PO 08,199909/21/18 09/21/18 Sennosides [Senna] 17.2 mg PO BID PRN 09/21/18 09/21/18 guaiFENesin [Mucinex] 600 mg PO 0800 09/21/18 09/21/18 - PHYSICAL EXAM AT DISCHARGE General Appearance: positive: Alert, Other (Unable to examine as patient left AMA) - SEPSIS Current Stage of Sepsis: Ruled out - FOLLOW UP Follow Up: Unable to address as patient left AMA - TIME SPENT Time Spent in Discharge (Minutes): 30"
== END 2018-09-27 23:30 | disposition left against medical advice (07) ==
LOC: EDUNIT# → ED 21:33 → MS2 23:01 → OBS 09-21 16:05
PROVIDERS: ADMIT Internal Medicine; ATTEND Family Medicine
DX: R45.1 Restlessness and agitation (principal); R41.0 Disorientation, unspecified; R41.3 Other amnesia; J44.9 Chronic obstructive pulmonary disease, unspecified; Z51.5 Encounter for palliative care; Z53.29 Procedure and treatment not carried out because of patient's decision for other reasons; F03.90 Unspecified dementia, unspecified severity, without behavioral disturbance, psychotic disturbance, mood disturbance, and anxiety; G89.4 Chronic pain syndrome; M50.10 Cervical disc disorder with radiculopathy, unspecified cervical region; M54.5 Low back pain; M62.830 Muscle spasm of back; R33.9 Retention of urine, unspecified; E43 Unspecified severe protein-calorie malnutrition; R10.9 Unspecified abdominal pain; R19.00 Intra-abdominal and pelvic swelling, mass and lump, unspecified site; N28.89 Other specified disorders of kidney and ureter; R91.8 Other nonspecific abnormal finding of lung field; G47.00 Insomnia, unspecified; F32.9 Major depressive disorder, single episode, unspecified; F41.9 Anxiety disorder, unspecified; F17.210 Nicotine dependence, cigarettes, uncomplicated; Z86.73 Personal history of transient ischemic attack (TIA), and cerebral infarction without residual deficits; Z68.1 Body mass index [BMI] 19.9 or less, adult; Z99.81 Dependence on supplemental oxygen; Z87.898 Personal history of other specified conditions; Z66 Do not resuscitate; Z79.51 Long term (current) use of inhaled steroids; Z79.899 Other long term (current) drug therapy; Z79.891 Long term (current) use of opiate analgesic; Z78.1 Physical restraint status; Z79.52 Long term (current) use of systemic steroids
CPT/HCPCS: 51701; 76700; 94640; 96372; 99283; 99284; A9270; G0378; J2060; J8499; Q0162; 80048; 80306; 85025; 99282

== ENCOUNTER 2018-09-27 23:46 | Emergency (ER) | payer MEDICARE, MEDICAID ==
--- NOTE | 2018-09-28 00:30 | ED Physician Documentation ---
PD HPI DYSPNEA - Stated complaint Stated Complaint: SOA - Chief complaint Chief Complaint: Resp - History obtained from History obtained from: Patient - History of Present Illness Timing - onset: How many weeks ago (1) Timing - onset during: Light activity Timing - duration: Weeks (Patient has a history of severe end-stage COPD and is on hospice care. He was having a increase in dyspnea as well as some agitation and confusion about 1 to 1-1/2 weeks ago and had some problems with the adult family home that he was living in. He was seen in the emergency department a week ago and admitted to the hospital in hospice care but also to treat his dyspnea and agitation/confusion. He had a changes of his medication from Haldol to Seroquel and also had medications for his breathing. He has stabilized and was doing better. The issue had been placement and there is still working on having placement for him.) Timing - details: Abrupt onset (He said he was wanting to leave the hospital to go with friends and then come back. He tells me he was unaware he was leaving "[facility]" with those implications. Nursing supervisor roller printing says he was told several times that he would not be a patient if he left and would have to come back through the ER; he says he took that to mean that he could come back in as a patient if he did come to the ER.). No: Still present (He states he got short of breath and wheezing when he got into the night air and came back in. The friends with whom he was going to get a ride left without him, per patient.) Inciting event(s): Other (the cool evening air). No: URI Improved by: Other (rest back in the hospitali) Associated symptoms: Wheezing. No: Fever, Cough, Hemoptysis Similar symptoms before: Diagnosis (end stage COPD) Review of Systems Constitutional: denies: Fever Nose: denies: Rhinorrhea / runny nose, Congestion Throat: denies: Sore throat Cardiac: denies: Chest pain / pressure Respiratory: reports: Dyspnea, Wheezing. denies: Cough GI: reports: Abdominal Pain (the past 2 days, with RUQ U?S done earlier today with some dilated CBD at 4 mm, else normal.). denies: Nausea, Vomiting, Diarrhea : denies: Dysuria, Frequency Neurologic: reports: Generalized weakness. denies: Focal weakness, Numbness, Headache PD PAST MEDICAL HISTORY - Past Medical History Past Medical History: Yes Cardiovascular: High cholesterol, Arrhythmia Respiratory: COPD, Shortness of breath Neuro: TIA Endocrine/Autoimmune: None GI: None : None HEENT: Chronic sinusitis Psych: Depression, Anxiety Musculoskeletal: Chronic back pain, Other Derm: None - Past Surgical History Past Surgical History: Yes - Present Medications Home Medications: Ambulatory Orders Medication Instructions Recorded Confirmed Tamsulosin [Flomax] 0.4 mg PO 199905/09/17 09/21/18 Amitriptyline HCl 100 mg PO 199904/18/18 09/21/18 Bupropion HCl [Bupropion HCl Sr] 150 mg PO 0800,199909/21/18 09/21/18 Haloperidol 1 mg PO Q4H PRN 09/21/18 09/21/18 Haloperidol 2 mg PO Q4H 09/21/18 09/21/18 LORazepam [Lorazepam] 1 mg PO 1200,1600,1999,09/21/18 09/21/18 LORazepam [Lorazepam] 1 mg PO Q2H PRN 09/21/18 09/21/18 Methadone 10 mg PO 1200 09/21/18 09/21/18 Methadone 15 mg PO 0800,199909/21/18 09/21/18 Sennosides [Senna] 17.2 mg PO BID PRN 09/21/18 09/21/18 guaiFENesin [Mucinex] 600 mg PO 0800 09/21/18 09/21/18 - Allergies Allergies/Adverse Reactions: Allergies Allergy/AdvReac Type Severity Reaction Status Date / Time No Known Drug Allergies Allergy Verified 09/27/18 23:56 - Social History Does the pt smoke?: Yes Smoking Status: Current every day smoker Does the pt drink ETOH?: No Does the pt have substance abuse?: No - Immunizations Immunizations are current?: Yes - POLST Patient has POLST: Yes POLST Status: DNR PD ED PE NORMAL - Vitals Vital signs reviewed: Yes - General General: Alert and oriented X 3, No acute distress. No: Well developed/nourished (frail and thin) - HEENT HEENT: Pharynx benign - Neck Neck: Supple, no meningeal sign, No adenopathy - Cardiac Cardiac: RRR, No murmur - Respiratory Respiratory: No respiratory distress. No: Clear bilaterally (some exp wheezing noted. No accessory muscle use. ) - Abdomen Abdomen: Normal bowel sounds, Soft, Non distended, No organomegaly, Other (Left lower quadrant abdominal tenderness with guarding. No percussion or rebound tenderness.) - Derm Derm: Normal color, Warm and dry - Extremities Extremities: No deformity, No tenderness to palpate, Normal ROM s pain, No edema, No calf tenderness / cord - Neuro Neuro: Alert and oriented X 3, No motor deficit, Normal speech Results - Vitals Vitals: Vital Signs - 24 hr 09/27/18 09/28/18 09/28/18 23:48 00:02 00:59 Temperature 36.6 C Heart Rate 112 H 103 H 91 Respiratory 22 14 11 L Rate Blood Pressure 128/80 112/88 H O2 Saturation 93 93 09/28/18 09/28/18 09/28/18 01:13 02:04 02:19 Temperature Heart Rate 89 86 Respiratory 12 14 17 Rate Blood Pressure 115/78 138/91 H O2 Saturation 99 99 Oxygen O2 Source Room air - Labs Labs: Laboratory Tests 09/28/18 09/28/18 01:00 01:00 WBC 6.9 RBC 4.31 L Hgb 12.6 L Hct 39.0 L MCV 90.5 MCH 29.2 MCHC 32.3 RDW 13.3 Plt Count 325 MPV 9.1 Neut # (Auto) 4.7 Lymph # (Auto) 1.2 L [place] # (Auto) 0.9 Eos # (Auto) 0.1 Baso # (Auto) 0.0 Absolute Nucleated RBC 0.00 Nucleated RBC % 0.0 Sodium 136 Potassium 3.8 Chloride 100 L Carbon Dioxide 25 Anion Gap 11.0 BUN 8 Creatinine 0.7 Estimated GFR (MDRD) 115 Glucose 129 H Calcium 9.1 Magnesium 1.8 Total Bilirubin 0.5 AST 17 ALT 18 Alkaline Phosphatase 48 Total Protein 6.5 L Albumin 3.4 Globulin 3.1 Albumin/Globulin Ratio 1.1 Lipase 18 L - Rads (name of study) chest xray Radiology: Prelim report reviewed (COPD, no infiltrates), See rad report abd CT Radiology: Prelim report reviewed, See rad report PD MEDICAL DECISION MAKING - ED course Complexity details: considered differential (Chronic COPD and he states he had some wheezing when when outside. We can give him a DuoNeb here. His breathing seems unlabored and adequate saturations. He states he misunderstood the meaning of signing out but the nursing supervisor roller printing seems clear that she had repeated it and explained it several times. He is oriented to person place and time. He does not seem confused per se. He has also had the left lower abdominal pain just the last couple of days while here in the hospital and we can work that up more with the CT scan and labs. The issue in the hospital that had kept him here at this long was placement and that will now become an issue from the ER.), d/w patient
[2018-09-28] MEDS ORDERED: SODIUM CHLORIDE 0.9% 1,000 ML IV ONE (00:47)
[2018-09-28] MEDS ORDERED: IPRATROPIUM/ALBUTEROL 3 ML NEB INH STA (00:47)
[2018-09-28] MEDS ORDERED: MORPHINE 2 MG/ML CARPUJECT IVP STA (00:48)
--- NOTE | 2018-09-28 01:23 | XRAY Report ---
Reason: dyspnea Procedure Date: 09/28/2018 Accession Number: [id number] / [id number] Procedure: XR - Chest 1 View X-Ray CPT Code: 95211 FULL RESULT: EXAM: CHEST RADIOGRAPHY EXAM DATE: 09/28/2018 12:58 AM. CLINICAL HISTORY: Dyspnea. COMPARISON: CHEST 1 VIEW 08/22/2018 12:55 PM. TECHNIQUE: 1 view. FINDINGS: Lungs/Pleura: The lungs are hyperinflated. No acute infiltrates. No pleural effusions. Mediastinum: The heart size is small secondary to the hyperinflation of the lungs. Other: None. IMPRESSION: 1. Hyperinflated lungs. No acute infiltrates. RADIA
[2018-09-28 01:37] LABS: BASOPHILS % (AUTO) 0.4 %; EOSINOPHILS # (AUTO) 0.1 10^3/uL (0.0-0.7); EOSINOPHILS % (AUTO) 0.7 %; HGB - HEMOGLOBIN 12.6 g/dL (14.0-18.0); LYMPHOCYTES # (AUTO) 1.2 10^3/uL (1.5-3.5); LYMPHOCYTES % (AUTO) 17.8 %; MEAN CORPUSCULAR HEMOGLOBIN 29.2 pg (27.0-31.0); MEAN CORPUSCULAR HGB CONC 32.3 g/dL (32.0-36.0); MEAN CORPUSCULAR VOLUME 90.5 fL (80.0-94.0); MEAN PLATELET VOLUME 9.1 fL (7.4-11.4); MONOCYTES # (AUTO) 0.9 10^3/uL (0.0-1.0); MONOCYTES % (AUTO) 12.3 %; NEUTROPHILS # (AUTO) 4.7 10^3/uL (1.5-6.6); NEUTROPHILS % (AUTO) 68.4 %; PLT - PLATELET COUNT 325 10^3/uL (130-450); RED BLOOD COUNT 4.31 10^6/uL (4.70-6.10); RED CELL DISTRIBUTION WIDTH 13.3 % (12.0-15.0); WHITE BLOOD COUNT 6.9 x10^3/uL (4.8-10.8)
[2018-09-28 01:39] LABS: ALBUMIN 3.4 g/dL (3.2-5.5); ALBUMIN/GLOBULIN RATIO 1.1 (1.0-2.2); BILIRUBIN,TOTAL 0.5 mg/dL (0.2-1.0); CALCIUM 9.1 mg/dL (8.5-10.3); CREATININE 0.7 mg/dL (0.6-1.2); MAGNESIUM 1.8 mg/dL (1.7-2.8); TOTAL PROTEIN 6.5 g/dL (6.7-8.2)
--- NOTE | 2018-09-28 01:55 | MISCELLANEOUS PROVIDER NOTE ---
Miscellaneous Provider Note - - Note: Patient had signed out AGAINST MEDICAL ADVICE today and was essentially told that he cannot leave to get food which he states that's all he wanted to do and didn't understand that signing the paper meant against medical advice. In any event patient was complaining of shortness of breath without fevers chest pain nausea vomiting however did mention left quadrant abdominal pain for 3 days for which the nurse practitioner Jermaine Chaney had addressed earlier today by ordering an abdominal ultrasound which essentially did not see any gallbladder pathology other than common bile duct measuring 4.1 mm with focal dilatation of the distal common bile duct up to 11 mm and no intrahepatic or extra hepatic ductal dilatation. In addition patient had a solid mass between the liver and the right kidney measuring 2.3 x 1.8 x 2.2 cm which may be arising from the right adrenal gland although conceivably this could be intra-parenchymal of the liver. Patient had a chest x-ray today which revealed COPD changes and no consolidations or infiltrates. Patient received a DuoNeb in the ED and did not require oxygenation with vital signs stable with heart rate ranging between 91 to 112 bpm blood pressure 112/88 with RR ranging between 11 to 22 breaths/min, 93% O2 saturation room air. Patient has a significant past medical history consistent with TIA, current every day smoker, hyperlipidemia, depression with anxiety, chronic back pain on methadone, end-stage COPD O2 dependent, recent behavioral disturbance with agitation and delirium with tele-psych consultation addressing patient's agitation with behavioral disturbance and delirium for which she states no suicidal or homicidal ideations or AVH is. History of unknown arrhythmias. Cervical disc disorder with radiculopathy. History of insomnia. History of chronic sinusitis. Patient's medical condition for which he was admitted for was a multifactorial delirium as per psych. [facility] P had cleared him in terms of not being an involuntary psych hold for which patient undoubtedly was free to go and therefore his understanding of leaving the hospital was a liberal understanding and unknowing he signed AMA per his statement. However, nurses were adamant that they explained that the form that he signed was AGAINST MEDICAL ADVICE and he understood this prior to leaving. I explained to Dr. Moore that patient is to remain in the ED until social work therapist has found a location or placement for patient under hospice care for his end-stage COPD, Dr. Guerrero following. Patient will be placed on recommendations by telemetry psych for Ativan, Risperdal titration, as well as cross tapering off the Haldol. Additional recommendations are to ultimately taper off as many medications that could cause further confusion leading to increased agitation. Limit staff changes if possible. Reorient the patient frequently. Also if possible arrange for family to bring in a familiar item in other words photograph or blanket to provide comfort for the patient. Patient to have a CT abdomen pelvis to better delineate abdominal homogeneous solid mass between the liver and right kidney. Patient is otherwise HD stable and does not warrant a re-admission for placement or even for pain control or mgmt for that matter. Will resume prior inpatient meds.
[2018-09-28] MEDS: HALOPERIDOL 1 MG TABLET PO SCH ×6 (02:18→20:53)
[2018-09-28] MEDS ORDERED: IOVERSOL 320 100 ML VIAL IVP ONE ×2 (02:22→02:53)
[2018-09-28 02:38] LABS: BILIRUBIN,URINE NEGATIVE (NEGATIVE); GLUCOSE, URINE (UA) NEGATIVE (NEGATIVE); KETONES,URINE (UA) NEGATIVE (NEGATIVE); LEUKOCYTE ESTERASE, URINE NEGATIVE (NEGATIVE); NITRITE,URINE NEGATIVE (NEGATIVE); OCCULT BLOOD,URINE NEGATIVE (NEGATIVE); PROTEIN,URINE NEGATIVE (NEGATIVE); UROBILINOGEN,URINE 0.2 (NORMAL) E.U./dL (NORMAL)
[2018-09-28 02:43] LABS: CLARITY,URINE CLEAR (CLEAR)
--- NOTE | 2018-09-28 03:01 | CT Report ---
Reason: left abd pain and tenderness Procedure Date: 09/28/2018 Accession Number: [id number] / [id number] Procedure: CT - Abdomen/Pelvis W CPT Code: FULL RESULT: EXAM: CT ABDOMEN AND PELVIS EXAM DATE: 09/28/2018 02:33 AM. CLINICAL HISTORY: Left abd pain and tenderness. COMPARISONS: None. TECHNIQUE: Routine helical CT imaging was performed through the abdomen and pelvis. IV contrast: 100 ML OPTIRAY 320. Enteric contrast: No. Reconstructions: Coronal and sagittal. In accordance with CT protocol optimization, one or more of the following dose reduction techniques were utilized for this exam: automated exposure control, adjustment of mA and/or KV based on patient size, or use of iterative reconstructive technique. FINDINGS: Lung Bases: There are marked emphysematous changes within the lungs at the bases and there is an ill-defined dense infiltrate/mass at the left lung base. This measures 49 mm x 23 mm. Liver: Normal. No masses. Gallbladder/Bile Ducts: There are no gallstones. There is mild intra-and extrahepatic biliary ductal dilatation. There are no definite obstructing stones. A lesion at the ampulla is not excluded by this study. Spleen: Normal. Pancreas: Normal. Adrenal Glands: There is a solid right renal mass which is moderately dense. This measures 19 mm x 24 mm. The left adrenal gland is unremarkable. Kidneys: The kidneys are normally positioned. There is a small nonobstructing calculus in the medial aspect of the left kidney although this could be a vascular calcification. Peritoneal Cavity/Bowel: Normal. No free fluid, free air or adenopathy. No masses or acute inflammatory process. The appendix is not definitely visualized yet there are no inflammatory changes in the region of the cecum of the right side of the abdomen. On the other hand, however, there is a large amount of stool throughout the colon. There are no inflammatory changes. Pelvic Organs: The prostate and seminal vesicles are unremarkable. The bladder is distended. There are no bladder calculi. Vasculature: Atherosclerotic vascular calcifications. Bones: There are degenerative changes of the spine at the L2-L3 and L4-L5 disk levels. Other: None. IMPRESSION: 1. Dense infiltrate or mass at the left lung base. Marked emphysematous changes of both lung bases. 2. Solid moderately dense right adrenal mass. 3. Large amount of stool throughout the colon. 4. Degenerative changes of the spine. RADIA
[2018-09-28] MEDS ORDERED: DOCUSATE SODIUM 250 MG CAPSULE PO STA (03:08)
[2018-09-28] MEDS: IPRATROPIUM/ALBUTEROL 3 ML NEB INH PRN ×2 (06:16→09:38)
[2018-09-28] MEDS: BUDESONIDE 0.5 MG/2 ML NEB INH SCH ×2 (09:38→18:03)
[2018-09-28] MEDS: FORMOTEROL FUMARATE NEB 20 MCG/2 ML INH SCH ×2 (09:43→18:03)
[2018-09-28] MEDS: risperiDONE 0.25 MG TABLET PO SCH ×2 (11:06→20:53)
[2018-09-28] MEDS: METHADONE 5 MG TABLET PO SCH ×3 (11:06→20:00)
[2018-09-28] MEDS: LORazepam 0.5 MG TABLET PO PRN ×2 (11:06→19:30)
[2018-09-28] MEDS: buPROPion SR 150 MG TABLET PO SCH ×2 (11:06→20:00)
[2018-09-28] MEDS: BENZONATATE 100 MG CAPSULE PO PRN (11:07)
[2018-09-28] MEDS: MULTIVITAMIN TABLET PO SCH (11:07)
[2018-09-28] MEDS: FAMOTIDINE 20 MG TABLET PO SCH ×2 (11:07→20:53)
[2018-09-28] MEDS: NICOTINE 21 MG PATCH TOP SCH (11:07)
[2018-09-28] MEDS ORDERED: MAGNESIUM CITRATE 296 ML BOTTLE PO STA (16:25)
[2018-09-28] MEDS ORDERED: METHADONE 5 MG TABLET PO ONE (17:00)
--- NOTE | 2018-09-28 18:52 | ED Physician Documentation ---
ED Addendum - Addendum Addendum: 09/28/18 18:50 Cooperative but confused through the day. Wandering in the halls but not agitated. Confirmed with Izaiah DELGADOinstructor warper that he is in hospice for COPD but since the admitting dx was for agitation hospice cannot admit.
[2018-09-28] MEDS: TAMSULOSIN 0.4 MG CAPSULE PO SCH (20:00)
[2018-09-28] MEDS: MONTELUKAST 10 MG TABLET PO SCH (21:07)
[2018-09-29] MEDS: HALOPERIDOL 1 MG TABLET PO SCH ×6 (01:19→21:06)
[2018-09-29] MEDS: BUDESONIDE 0.5 MG/2 ML NEB INH SCH ×2 (08:06→18:09)
[2018-09-29] MEDS: FORMOTEROL FUMARATE NEB 20 MCG/2 ML INH SCH ×2 (08:06→18:09)
[2018-09-29] MEDS: LORazepam 0.5 MG TABLET PO PRN (08:32)
[2018-09-29] MEDS: risperiDONE 0.25 MG TABLET PO SCH ×2 (08:33→21:06)
[2018-09-29] MEDS: buPROPion SR 150 MG TABLET PO SCH ×2 (08:33→19:56)
[2018-09-29] MEDS: METHADONE 5 MG TABLET PO SCH ×3 (08:33→19:57)
[2018-09-29] MEDS: FAMOTIDINE 20 MG TABLET PO SCH ×2 (08:33→21:06)
[2018-09-29] MEDS: MULTIVITAMIN TABLET PO SCH (08:33)
[2018-09-29] MEDS: NICOTINE 21 MG PATCH TOP SCH (11:45)
[2018-09-29] MEDS ORDERED: MAGNESIUM CITRATE 296 ML BOTTLE PO STA (12:12)
[2018-09-29] MEDS: SENNA 8.6 MG TABLET PO PRN ×2 (13:23→19:56)
[2018-09-29] MEDS: TAMSULOSIN 0.4 MG CAPSULE PO SCH (19:57)
[2018-09-29] MEDS: MONTELUKAST 10 MG TABLET PO SCH (21:05)
[2018-09-29] MEDS ORDERED: DOCUSATE SODIUM 100 MG CAPSULE PO STA (21:17)
[2018-09-30] MEDS: HALOPERIDOL 1 MG TABLET PO SCH ×6 (01:20→20:49)
[2018-09-30] MEDS: FORMOTEROL FUMARATE NEB 20 MCG/2 ML INH SCH ×2 (07:31→20:06)
[2018-09-30] MEDS: BUDESONIDE 0.5 MG/2 ML NEB INH SCH ×2 (07:31→20:05)
[2018-09-30] MEDS: buPROPion SR 150 MG TABLET PO SCH ×2 (08:10→20:48)
[2018-09-30] MEDS: METHADONE 5 MG TABLET PO SCH ×3 (08:10→20:49)
[2018-09-30] MEDS: MULTIVITAMIN TABLET PO SCH (08:10)
[2018-09-30] MEDS: SENNA 8.6 MG TABLET PO PRN (08:10)
[2018-09-30] MEDS: LORazepam 0.5 MG TABLET PO PRN ×3 (08:10→20:48)
[2018-09-30] MEDS: FAMOTIDINE 20 MG TABLET PO SCH ×2 (08:10→20:49)
[2018-09-30] MEDS: risperiDONE 0.25 MG TABLET PO SCH ×2 (08:11→20:49)
[2018-09-30] MEDS: NICOTINE 21 MG PATCH TOP SCH (09:00)
[2018-09-30] MEDS ORDERED: HALOPERIDOL 1 MG TABLET PO PRN (19:17)
[2018-09-30] MEDS: IPRATROPIUM/ALBUTEROL 3 ML NEB INH PRN (20:06)
[2018-09-30] MEDS: MONTELUKAST 10 MG TABLET PO SCH (20:49)
[2018-09-30] MEDS ORDERED: MONTELUKAST 10 MG TABLET PO ONE (20:49)
[2018-09-30] MEDS: TAMSULOSIN 0.4 MG CAPSULE PO SCH (20:49)
[2018-09-30] MEDS: LORazepam 0.5 MG TABLET PO SCH (20:50)
[2018-10-01] MEDS: LORazepam 0.5 MG TABLET PO SCH ×6 (00:38→19:48)
[2018-10-01] MEDS: HALOPERIDOL 1 MG TABLET PO SCH ×6 (00:40→20:51)
[2018-10-01] MEDS: NICOTINE 21 MG PATCH TOP SCH (01:59)
[2018-10-01] MEDS: LORazepam 0.5 MG TABLET PO PRN ×2 (05:45→16:41)
[2018-10-01] MEDS: buPROPion SR 150 MG TABLET PO SCH ×2 (09:05→19:47)
[2018-10-01] MEDS: SENNA 8.6 MG TABLET PO PRN (09:05)
[2018-10-01] MEDS: METHADONE 5 MG TABLET PO SCH ×3 (09:05→19:47)
[2018-10-01] MEDS: risperiDONE 0.25 MG TABLET PO SCH ×2 (09:06→20:50)
[2018-10-01] MEDS: MULTIVITAMIN TABLET PO SCH (09:06)
[2018-10-01] MEDS: FAMOTIDINE 20 MG TABLET PO SCH ×2 (09:06→20:51)
[2018-10-01] MEDS: IPRATROPIUM/ALBUTEROL 3 ML NEB INH PRN (17:00)
[2018-10-01] MEDS: TAMSULOSIN 0.4 MG CAPSULE PO SCH (19:47)
[2018-10-01] MEDS: BUDESONIDE 0.5 MG/2 ML NEB INH SCH (20:10)
[2018-10-01] MEDS: FORMOTEROL FUMARATE NEB 20 MCG/2 ML INH SCH (20:10)
[2018-10-01] MEDS: MONTELUKAST 10 MG TABLET PO SCH (20:51)
[2018-10-02] MEDS: LORazepam 0.5 MG TABLET PO SCH ×6 (00:22→20:47)
[2018-10-02] MEDS: HALOPERIDOL 1 MG TABLET PO SCH ×4 (00:35→12:35)
[2018-10-02] MEDS: BUDESONIDE 0.5 MG/2 ML NEB INH SCH ×2 (08:25→19:44)
[2018-10-02] MEDS: FORMOTEROL FUMARATE NEB 20 MCG/2 ML INH SCH ×2 (08:25→19:49)
[2018-10-02] MEDS: IPRATROPIUM/ALBUTEROL 3 ML NEB INH PRN ×2 (08:25→19:44)
[2018-10-02] MEDS: MULTIVITAMIN TABLET PO SCH (08:48)
[2018-10-02] MEDS: FAMOTIDINE 20 MG TABLET PO SCH ×2 (08:48→20:48)
[2018-10-02] MEDS: buPROPion SR 150 MG TABLET PO SCH ×2 (08:48→20:48)
[2018-10-02] MEDS: NICOTINE 21 MG PATCH TOP SCH (08:48)
[2018-10-02] MEDS: METHADONE 5 MG TABLET PO SCH ×3 (08:49→20:47)
[2018-10-02] MEDS: risperiDONE 0.25 MG TABLET PO SCH ×2 (08:49→20:47)
[2018-10-02] MEDS: HALOPERIDOL 10 MG/5 ML UDC PO SCH ×2 (16:50→20:48)
[2018-10-02] MEDS: MONTELUKAST 10 MG TABLET PO SCH (20:47)
[2018-10-02] MEDS: TAMSULOSIN 0.4 MG CAPSULE PO SCH (20:48)
[2018-10-03] MEDS: LORazepam 0.5 MG TABLET PO SCH ×8 (01:29→20:51)
[2018-10-03] MEDS: HALOPERIDOL 10 MG/5 ML UDC PO SCH ×7 (01:29→20:55)
[2018-10-03] MEDS ORDERED: HALOPERIDOL 5 MG/ML VIAL IM STA (07:31)
[2018-10-03] MEDS ORDERED: LORazepam 2 MG/ML VIAL IM STA (07:32)
[2018-10-03] MEDS ORDERED: LORazepam 2 MG/ML VIAL ONE (07:41)
[2018-10-03] MEDS: FORMOTEROL FUMARATE NEB 20 MCG/2 ML INH SCH ×3 (07:41→16:19)
[2018-10-03] MEDS ORDERED: HALOPERIDOL 5 MG/ML VIAL ONE (07:41)
--- NOTE | 2018-10-03 07:47 | ED Physician Documentation ---
ED Addendum - Addendum Addendum: 10/03/18 07:46 Patient is having some agitation this morning. Reporting from nurse is that he slept well through the night and so was not awakened to be given his routine sedative and antipsychotic medicines. He seemed to be more agitated than baseline this morning. He did require some arm holding and then IM medications to give a more prompt response. These were basically his usual morning medicines given different route. We were able to verbally de-escalate him and he was back in his room and calming down even prior to being medicated. The nursing staff did a wonderful job at doing this. He is asking for breakfast and asking to watch a movie at this time.
[2018-10-03] MEDS: MORPHINE SOL 10 MG/0.5 ML SYRINGE PO PRN ×2 (07:55→16:18)
[2018-10-03] MEDS: METHADONE 5 MG TABLET PO SCH ×3 (07:55→20:51)
[2018-10-03] MEDS: BUDESONIDE 0.5 MG/2 ML NEB INH SCH ×2 (08:04→16:20)
[2018-10-03] MEDS: MULTIVITAMIN TABLET PO SCH (09:59)
[2018-10-03] MEDS: LORazepam 0.5 MG TABLET PO PRN (09:59)
[2018-10-03] MEDS: buPROPion SR 150 MG TABLET PO SCH ×2 (09:59→20:52)
[2018-10-03] MEDS: FAMOTIDINE 20 MG TABLET PO SCH ×2 (09:59→20:52)
[2018-10-03] MEDS: NICOTINE 21 MG PATCH TOP SCH (09:59)
[2018-10-03] MEDS: risperiDONE 0.25 MG TABLET PO SCH ×2 (09:59→20:52)
[2018-10-03] MEDS: IPRATROPIUM/ALBUTEROL 3 ML NEB INH PRN (16:18)
[2018-10-03] MEDS: TAMSULOSIN 0.4 MG CAPSULE PO SCH (20:51)
[2018-10-03] MEDS: MONTELUKAST 10 MG TABLET PO SCH (20:59)
[2018-10-04] MEDS: LORazepam 0.5 MG TABLET PO SCH ×6 (00:30→20:15)
[2018-10-04] MEDS: HALOPERIDOL 10 MG/5 ML UDC PO SCH ×6 (00:31→20:16)
[2018-10-04] MEDS: IPRATROPIUM/ALBUTEROL 3 ML NEB INH PRN ×3 (05:05→19:36)
[2018-10-04] MEDS: FORMOTEROL FUMARATE NEB 20 MCG/2 ML INH SCH ×2 (07:55→19:36)
[2018-10-04] MEDS: BUDESONIDE 0.5 MG/2 ML NEB INH SCH ×2 (07:55→19:36)
[2018-10-04] MEDS: FAMOTIDINE 20 MG TABLET PO SCH ×2 (08:11→20:13)
[2018-10-04] MEDS: METHADONE 5 MG TABLET PO SCH ×3 (08:11→20:14)
[2018-10-04] MEDS: SENNA 8.6 MG TABLET PO PRN (08:11)
[2018-10-04] MEDS: buPROPion SR 150 MG TABLET PO SCH ×2 (08:12→20:12)
[2018-10-04] MEDS: risperiDONE 0.25 MG TABLET PO SCH ×2 (08:13→20:13)
[2018-10-04] MEDS: MULTIVITAMIN TABLET PO SCH (08:13)
[2018-10-04] MEDS: MORPHINE SOL 10 MG/0.5 ML SYRINGE PO PRN ×2 (12:41→14:37)
[2018-10-04] MEDS: LORazepam 0.5 MG TABLET PO PRN (12:41)
[2018-10-04] MEDS ORDERED: ALBUTEROL NEB 2.5 MG/3 ML INH STA (14:31)
[2018-10-04] MEDS: NICOTINE 21 MG PATCH TOP SCH (14:36)
[2018-10-04] MEDS: HALOPERIDOL 10 MG/5 ML UDC PO PRN (14:37)
[2018-10-04] MEDS: TAMSULOSIN 0.4 MG CAPSULE PO SCH (20:14)
[2018-10-04] MEDS: MONTELUKAST 10 MG TABLET PO SCH (20:15)
[2018-10-05] MEDS: MORPHINE SOL 10 MG/0.5 ML SYRINGE PO PRN (00:13)
[2018-10-05] MEDS: LORazepam 0.5 MG TABLET PO SCH ×6 (00:13→20:04)
[2018-10-05] MEDS: HALOPERIDOL 10 MG/5 ML UDC PO SCH ×6 (00:34→21:06)
[2018-10-05] MEDS: risperiDONE 0.25 MG TABLET PO SCH ×2 (08:18→21:06)
[2018-10-05] MEDS: buPROPion SR 150 MG TABLET PO SCH ×2 (08:19→20:03)
[2018-10-05] MEDS: MULTIVITAMIN TABLET PO SCH (08:19)
[2018-10-05] MEDS: METHADONE 5 MG TABLET PO SCH ×3 (08:19→20:03)
[2018-10-05] MEDS: FAMOTIDINE 20 MG TABLET PO SCH ×2 (08:19→21:06)
[2018-10-05] MEDS: NICOTINE 21 MG PATCH TOP SCH (08:23)
[2018-10-05] MEDS: FORMOTEROL FUMARATE NEB 20 MCG/2 ML INH SCH ×2 (09:20→19:23)
[2018-10-05] MEDS: BUDESONIDE 0.5 MG/2 ML NEB INH SCH ×2 (09:20→19:23)
[2018-10-05] MEDS: IPRATROPIUM/ALBUTEROL 3 ML NEB INH PRN ×2 (09:20→19:23)
[2018-10-05] MEDS: TAMSULOSIN 0.4 MG CAPSULE PO SCH (20:03)
[2018-10-05] MEDS: MONTELUKAST 10 MG TABLET PO SCH (21:06)
[2018-10-06] MEDS: HALOPERIDOL 10 MG/5 ML UDC PO SCH ×6 (00:21→20:08)
[2018-10-06] MEDS: LORazepam 0.5 MG TABLET PO SCH ×6 (00:21→20:08)
[2018-10-06] MEDS: MORPHINE SOL 10 MG/0.5 ML SYRINGE PO PRN (02:18)
[2018-10-06] MEDS: BUDESONIDE 0.5 MG/2 ML NEB INH SCH ×2 (08:15→19:13)
[2018-10-06] MEDS: IPRATROPIUM/ALBUTEROL 3 ML NEB INH PRN ×2 (08:15→19:13)
[2018-10-06] MEDS: FORMOTEROL FUMARATE NEB 20 MCG/2 ML INH SCH ×2 (08:15→19:13)
[2018-10-06] MEDS: MULTIVITAMIN TABLET PO SCH (08:40)
[2018-10-06] MEDS: METHADONE 5 MG TABLET PO SCH ×3 (08:41→20:08)
[2018-10-06] MEDS: risperiDONE 0.25 MG TABLET PO SCH ×2 (08:41→21:00)
[2018-10-06] MEDS: buPROPion SR 150 MG TABLET PO SCH ×2 (08:42→20:07)
[2018-10-06] MEDS: FAMOTIDINE 20 MG TABLET PO SCH ×2 (08:43→20:12)
[2018-10-06] MEDS: NICOTINE 21 MG PATCH TOP SCH ×2 (08:46→09:00)
[2018-10-06] MEDS: TAMSULOSIN 0.4 MG CAPSULE PO SCH (20:08)
[2018-10-06] MEDS: MONTELUKAST 10 MG TABLET PO SCH (20:08)
[2018-10-07] MEDS: LORazepam 0.5 MG TABLET PO SCH ×7 (00:20→23:59)
[2018-10-07] MEDS: HALOPERIDOL 10 MG/5 ML UDC PO SCH ×4 (00:20→12:25)
[2018-10-07] MEDS: LORazepam 0.5 MG TABLET PO PRN (06:58)
[2018-10-07] MEDS: HALOPERIDOL 10 MG/5 ML UDC PO PRN (06:59)
[2018-10-07] MEDS: MORPHINE SOL 10 MG/0.5 ML SYRINGE PO PRN (07:21)
[2018-10-07] MEDS: METHADONE 5 MG TABLET PO SCH ×4 (08:12→19:50)
[2018-10-07] MEDS: buPROPion SR 150 MG TABLET PO SCH ×3 (08:12→19:50)
[2018-10-07] MEDS: MULTIVITAMIN TABLET PO SCH (08:12)
[2018-10-07] MEDS: FORMOTEROL FUMARATE NEB 20 MCG/2 ML INH SCH (08:40)
[2018-10-07] MEDS: BUDESONIDE 0.5 MG/2 ML NEB INH SCH (08:40)
[2018-10-07] MEDS ORDERED: MULTIVITAMIN TABLET PO SCH (09:00)
[2018-10-07] MEDS: risperiDONE 0.25 MG TABLET PO SCH ×2 (09:04→21:13)
[2018-10-07] MEDS: FAMOTIDINE 20 MG TABLET PO SCH (09:05)
[2018-10-07] MEDS ORDERED: HALOPERIDOL 10 MG/5 ML UDC PO PRN (14:34)
[2018-10-07] MEDS ORDERED: HALOPERIDOL 1 MG TABLET PO PRN (14:37)
[2018-10-07] MEDS: IPRATROPIUM/ALBUTEROL 3 ML NEB INH PRN (16:48)
[2018-10-07] MEDS: HALOPERIDOL 1 MG TABLET PO SCH ×2 (18:28→23:59)
[2018-10-07] MEDS: TAMSULOSIN 0.4 MG CAPSULE PO SCH (19:50)
[2018-10-07] MEDS: MONTELUKAST 10 MG TABLET PO SCH (21:13)
[2018-10-08] MEDS: LORazepam 0.5 MG TABLET PO SCH ×4 (05:35→23:55)
[2018-10-08] MEDS: HALOPERIDOL 1 MG TABLET PO SCH (05:35)
[2018-10-08] MEDS: buPROPion SR 150 MG TABLET PO SCH ×2 (09:00→20:34)
[2018-10-08] MEDS: risperiDONE 0.25 MG TABLET PO SCH ×2 (09:00→20:33)
[2018-10-08] MEDS: MORPHINE SOL 10 MG/0.5 ML SYRINGE PO PRN (09:00)
[2018-10-08] MEDS: NICOTINE 21 MG PATCH TOP SCH (09:00)
[2018-10-08] MEDS: METHADONE 5 MG TABLET PO SCH ×3 (09:00→20:34)
[2018-10-08] MEDS: IPRATROPIUM/ALBUTEROL 3 ML NEB INH PRN ×2 (09:58→18:36)
[2018-10-08] MEDS: HALOPERIDOL 10 MG/5 ML UDC PO SCH ×3 (13:08→23:55)
[2018-10-08] MEDS: MONTELUKAST 10 MG TABLET PO SCH (20:33)
[2018-10-08] MEDS: TAMSULOSIN 0.4 MG CAPSULE PO SCH (20:34)
[2018-10-09] MEDS: HALOPERIDOL 10 MG/5 ML UDC PO SCH ×4 (06:01→23:57)
[2018-10-09] MEDS: LORazepam 0.5 MG TABLET PO SCH ×4 (06:01→23:57)
[2018-10-09] MEDS: HALOPERIDOL 1 MG TABLET PO SCH (07:31)
[2018-10-09] MEDS ORDERED: BUDESONIDE 0.5 MG/2 ML NEB INH SCH (07:35)
[2018-10-09] MEDS ORDERED: FORMOTEROL FUMARATE NEB 20 MCG/2 ML INH SCH (07:36)
[2018-10-09] MEDS: IPRATROPIUM/ALBUTEROL 3 ML NEB INH PRN ×2 (08:58→15:58)
[2018-10-09] MEDS: NICOTINE 21 MG PATCH TOP SCH (09:14)
[2018-10-09] MEDS: METHADONE 5 MG TABLET PO SCH ×3 (09:15→21:07)
[2018-10-09] MEDS: buPROPion SR 150 MG TABLET PO SCH ×2 (09:15→21:07)
[2018-10-09] MEDS: MORPHINE SOL 10 MG/0.5 ML SYRINGE PO PRN ×2 (09:35→18:25)
[2018-10-09] MEDS: risperiDONE 0.25 MG TABLET PO SCH (10:24)
[2018-10-09] MEDS ORDERED: ALBUTEROL NEB 2.5 MG/3 ML INH STA (18:07)
[2018-10-09] MEDS: MONTELUKAST 10 MG TABLET PO SCH (21:07)
[2018-10-09] MEDS: TAMSULOSIN 0.4 MG CAPSULE PO SCH (21:07)
[2018-10-09] MEDS: risperiDONE 1 MG TABLET PO SCH (21:07)
[2018-10-10] MEDS: LORazepam 0.5 MG TABLET PO SCH ×4 (06:05→23:29)
[2018-10-10] MEDS: HALOPERIDOL 10 MG/5 ML UDC PO SCH ×4 (06:05→23:29)
[2018-10-10] MEDS: MORPHINE SOL 10 MG/0.5 ML SYRINGE PO PRN ×4 (06:10→20:52)
[2018-10-10] MEDS: IPRATROPIUM/ALBUTEROL 3 ML NEB INH PRN ×3 (06:50→18:13)
[2018-10-10] MEDS: NICOTINE 21 MG PATCH TOP SCH (09:09)
[2018-10-10] MEDS: METHADONE 5 MG TABLET PO SCH ×3 (09:10→20:52)
[2018-10-10] MEDS: buPROPion SR 150 MG TABLET PO SCH ×2 (09:10→20:52)
[2018-10-10] MEDS: risperiDONE 1 MG TABLET PO SCH ×2 (09:10→20:51)
--- NOTE | 2018-10-10 15:02 | ED Physician Documentation ---
ED Addendum - Addendum Addendum: 10/10/18 15:01 I was asked by Dr. Guerrero from hospice, to decrease haldol to 1mg PO q6h. Order placed. Patient cooperative today. No acute emergency medical condition.
[2018-10-10] MEDS: LORazepam 0.5 MG TABLET PO PRN (17:10)
[2018-10-10] MEDS: HALOPERIDOL 10 MG/5 ML UDC PO PRN (17:10)
[2018-10-10] MEDS: TAMSULOSIN 0.4 MG CAPSULE PO SCH (20:51)
[2018-10-10] MEDS: MONTELUKAST 10 MG TABLET PO SCH (20:52)
[2018-10-11] MEDS: HALOPERIDOL 10 MG/5 ML UDC PO SCH ×4 (05:55→23:50)
[2018-10-11] MEDS: LORazepam 0.5 MG TABLET PO SCH ×4 (05:57→23:51)
[2018-10-11] MEDS: IPRATROPIUM/ALBUTEROL 3 ML NEB INH PRN ×3 (06:08→15:58)
[2018-10-11] MEDS: NICOTINE 21 MG PATCH TOP SCH (08:43)
[2018-10-11] MEDS: buPROPion SR 150 MG TABLET PO SCH ×2 (08:43→20:51)
[2018-10-11] MEDS: METHADONE 5 MG TABLET PO SCH ×3 (08:44→20:49)
[2018-10-11] MEDS: risperiDONE 1 MG TABLET PO SCH ×2 (08:44→20:51)
[2018-10-11] MEDS: MORPHINE SOL 10 MG/0.5 ML SYRINGE PO PRN ×3 (12:43→20:49)
[2018-10-11] MEDS: MONTELUKAST 10 MG TABLET PO SCH (20:50)
[2018-10-11] MEDS: SENNA 8.6 MG TABLET PO PRN (20:51)
[2018-10-11] MEDS: TAMSULOSIN 0.4 MG CAPSULE PO SCH (20:51)
[2018-10-11] MEDS: LORazepam 0.5 MG TABLET PO PRN (20:52)
[2018-10-11] MEDS: HALOPERIDOL 10 MG/5 ML UDC PO PRN (20:53)
[2018-10-12] MEDS: MORPHINE SOL 10 MG/0.5 ML SYRINGE PO PRN ×6 (03:18→22:59)
[2018-10-12] MEDS: LORazepam 0.5 MG TABLET PO SCH ×4 (07:00→23:36)
[2018-10-12] MEDS: HALOPERIDOL 10 MG/5 ML UDC PO SCH ×4 (07:00→23:36)
[2018-10-12] MEDS: IPRATROPIUM/ALBUTEROL 3 ML NEB INH PRN ×3 (07:26→20:27)
[2018-10-12] MEDS: NICOTINE 21 MG PATCH TOP SCH (08:13)
[2018-10-12] MEDS: SENNA 8.6 MG TABLET PO PRN (08:13)
[2018-10-12] MEDS: METHADONE 5 MG TABLET PO SCH ×3 (08:14→21:36)
[2018-10-12] MEDS: risperiDONE 1 MG TABLET PO SCH ×2 (08:14→21:36)
[2018-10-12] MEDS: buPROPion SR 150 MG TABLET PO SCH ×2 (08:14→21:36)
[2018-10-12] MEDS: MONTELUKAST 10 MG TABLET PO SCH (21:36)
[2018-10-12] MEDS: TAMSULOSIN 0.4 MG CAPSULE PO SCH (21:36)
[2018-10-12] MEDS ORDERED: ONDANSETRON ODT 4 MG TABLET TL STA (22:53)
--- NOTE | 2018-10-12 22:54 | ED Physician Documentation ---
ED Addendum - Addendum Addendum: 10/12/18 22:54 Patient was feeling nauseous and nursing staff requested a Zofran order. Zofran 4 mg ODT was ordered.
[2018-10-13] MEDS: LORazepam 0.5 MG TABLET PO PRN ×2 (03:49→16:29)
[2018-10-13] MEDS: MORPHINE SOL 10 MG/0.5 ML SYRINGE PO PRN ×4 (04:22→15:53)
[2018-10-13] MEDS: LORazepam 0.5 MG TABLET PO SCH ×3 (06:23→19:21)
[2018-10-13] MEDS: HALOPERIDOL 10 MG/5 ML UDC PO SCH ×3 (06:23→19:21)
[2018-10-13] MEDS: IPRATROPIUM/ALBUTEROL 3 ML NEB INH PRN ×4 (08:12→20:43)
[2018-10-13] MEDS: METHADONE 5 MG TABLET PO SCH ×3 (09:49→20:55)
[2018-10-13] MEDS: buPROPion SR 150 MG TABLET PO SCH ×2 (09:49→20:55)
[2018-10-13] MEDS: risperiDONE 1 MG TABLET PO SCH ×2 (09:49→20:55)
[2018-10-13] MEDS: NICOTINE 21 MG PATCH TOP SCH (09:49)
[2018-10-13] MEDS: HALOPERIDOL 10 MG/5 ML UDC PO PRN (16:29)
[2018-10-13] MEDS: MONTELUKAST 10 MG TABLET PO SCH (20:55)
[2018-10-13] MEDS: TAMSULOSIN 0.4 MG CAPSULE PO SCH (20:55)
[2018-10-14] MEDS: LORazepam 0.5 MG TABLET PO SCH ×4 (00:56→17:34)
[2018-10-14] MEDS: HALOPERIDOL 10 MG/5 ML UDC PO SCH ×4 (00:56→17:34)
[2018-10-14] MEDS: MORPHINE SOL 10 MG/0.5 ML SYRINGE PO PRN ×4 (05:37→13:36)
[2018-10-14] MEDS: IPRATROPIUM/ALBUTEROL 3 ML NEB INH PRN ×2 (05:38→14:08)
[2018-10-14] MEDS: SENNA 8.6 MG TABLET PO PRN ×2 (06:05→19:13)
[2018-10-14] MEDS ORDERED: ALBUTEROL NEB 2.5 MG/3 ML INH STA (08:31)
[2018-10-14] MEDS: NICOTINE 21 MG PATCH TOP SCH (09:38)
[2018-10-14] MEDS: buPROPion SR 150 MG TABLET PO SCH ×2 (09:39→21:16)
[2018-10-14] MEDS: risperiDONE 1 MG TABLET PO SCH ×2 (09:39→21:17)
[2018-10-14] MEDS: METHADONE 5 MG TABLET PO SCH ×3 (09:39→21:16)
[2018-10-14] MEDS: HALOPERIDOL 10 MG/5 ML UDC PO PRN (11:19)
[2018-10-14] MEDS: MONTELUKAST 10 MG TABLET PO SCH (21:16)
[2018-10-14] MEDS: TAMSULOSIN 0.4 MG CAPSULE PO SCH (21:17)
[2018-10-15] MEDS: LORazepam 0.5 MG TABLET PO SCH ×4 (00:26→18:59)
[2018-10-15] MEDS: HALOPERIDOL 10 MG/5 ML UDC PO SCH ×4 (00:26→18:59)
[2018-10-15] MEDS: MORPHINE SOL 10 MG/0.5 ML SYRINGE PO PRN ×3 (05:56→18:58)
[2018-10-15] MEDS: IPRATROPIUM/ALBUTEROL 3 ML NEB INH PRN ×2 (07:16→11:59)
[2018-10-15] MEDS: METHADONE 5 MG TABLET PO SCH ×3 (09:35→20:45)
[2018-10-15] MEDS: NICOTINE 21 MG PATCH TOP SCH (09:35)
[2018-10-15] MEDS: buPROPion SR 150 MG TABLET PO SCH ×2 (09:35→20:45)
[2018-10-15] MEDS: risperiDONE 1 MG TABLET PO SCH ×2 (09:36→20:45)
[2018-10-15] MEDS: HALOPERIDOL 10 MG/5 ML UDC PO PRN (19:48)
[2018-10-15] MEDS: LORazepam 0.5 MG TABLET PO PRN (19:48)
[2018-10-15] MEDS: MONTELUKAST 10 MG TABLET PO SCH (20:45)
[2018-10-15] MEDS: TAMSULOSIN 0.4 MG CAPSULE PO SCH (20:45)
[2018-10-15] MEDS: SENNA 8.6 MG TABLET PO PRN (20:45)
[2018-10-16] MEDS: HALOPERIDOL 10 MG/5 ML UDC PO SCH ×5 (00:07→23:51)
[2018-10-16] MEDS: LORazepam 0.5 MG TABLET PO SCH ×5 (00:07→23:51)
[2018-10-16] MEDS: MORPHINE SOL 10 MG/0.5 ML SYRINGE PO PRN ×4 (03:55→16:25)
[2018-10-16] MEDS: IPRATROPIUM/ALBUTEROL 3 ML NEB INH PRN ×5 (04:06→21:17)
--- NOTE | 2018-10-16 08:52 | ED Physician Documentation ---
ED Addendum - Addendum Addendum: 10/16/18 08:51 Patient remains status quo in the ER. He is receiving his daily medications. He seems calm and relaxed this morning. I reviewed social work notes from yesterday regarding still looking for placement for snf facility. No particular need for change in interventions or medications are apparent at this time.
[2018-10-16] MEDS: NICOTINE 21 MG PATCH TOP SCH (09:10)
[2018-10-16] MEDS: buPROPion SR 150 MG TABLET PO SCH ×2 (09:10→20:44)
[2018-10-16] MEDS: LORazepam 0.5 MG TABLET PO PRN (09:10)
[2018-10-16] MEDS: SENNA 8.6 MG TABLET PO PRN (09:10)
[2018-10-16] MEDS: risperiDONE 1 MG TABLET PO SCH ×2 (09:10→20:44)
[2018-10-16] MEDS: METHADONE 5 MG TABLET PO SCH ×3 (09:10→20:44)
[2018-10-16] MEDS ORDERED: IBUPROFEN 600 MG TABLET PO STA (12:46)
[2018-10-16] MEDS: TAMSULOSIN 0.4 MG CAPSULE PO SCH (20:44)
[2018-10-16] MEDS: MONTELUKAST 10 MG TABLET PO SCH (20:44)
[2018-10-17] MEDS: MORPHINE SOL 10 MG/0.5 ML SYRINGE PO PRN ×4 (03:23→21:14)
[2018-10-17] MEDS: IPRATROPIUM/ALBUTEROL 3 ML NEB INH PRN ×4 (03:27→20:59)
[2018-10-17] MEDS: HALOPERIDOL 10 MG/5 ML UDC PO PRN (03:48)
[2018-10-17] MEDS: HALOPERIDOL 10 MG/5 ML UDC PO SCH ×3 (05:59→17:36)
[2018-10-17] MEDS: LORazepam 0.5 MG TABLET PO SCH ×3 (06:00→17:37)
[2018-10-17] MEDS: SENNA 8.6 MG TABLET PO PRN ×2 (08:57→21:14)
[2018-10-17] MEDS: NICOTINE 21 MG PATCH TOP SCH (08:57)
[2018-10-17] MEDS: buPROPion SR 150 MG TABLET PO SCH ×2 (08:58→21:14)
[2018-10-17] MEDS: LORazepam 0.5 MG TABLET PO PRN ×2 (08:58→13:36)
[2018-10-17] MEDS: risperiDONE 1 MG TABLET PO SCH ×2 (08:58→21:14)
[2018-10-17] MEDS: METHADONE 5 MG TABLET PO SCH ×3 (08:59→21:14)
[2018-10-17] MEDS ORDERED: IBUPROFEN 600 MG TABLET PO STA (09:46)
[2018-10-17] MEDS: MONTELUKAST 10 MG TABLET PO SCH (21:14)
[2018-10-17] MEDS: TAMSULOSIN 0.4 MG CAPSULE PO SCH (21:14)
[2018-10-18] MEDS: LORazepam 0.5 MG TABLET PO SCH ×4 (00:02→17:47)
[2018-10-18] MEDS: HALOPERIDOL 10 MG/5 ML UDC PO SCH ×4 (00:02→17:47)
[2018-10-18] MEDS: IPRATROPIUM/ALBUTEROL 3 ML NEB INH PRN ×4 (04:13→20:28)
[2018-10-18] MEDS: MORPHINE SOL 10 MG/0.5 ML SYRINGE PO PRN ×3 (04:13→17:48)
[2018-10-18] MEDS: SENNA 8.6 MG TABLET PO PRN (08:24)
[2018-10-18] MEDS: LORazepam 0.5 MG TABLET PO PRN ×2 (08:25→13:18)
[2018-10-18] MEDS: buPROPion SR 150 MG TABLET PO SCH ×2 (08:25→21:17)
[2018-10-18] MEDS: METHADONE 5 MG TABLET PO SCH ×3 (08:25→21:17)
[2018-10-18] MEDS: risperiDONE 1 MG TABLET PO SCH ×2 (08:25→21:17)
[2018-10-18] MEDS: NICOTINE 21 MG PATCH TOP SCH (08:25)
[2018-10-18] MEDS: WHEAT DEXTRIN POWDER PACKET PO PRN (17:47)
[2018-10-18] MEDS: POLYETHYLENE GLYCOL 3350 17 GM PACKET PO PRN (17:47)
[2018-10-18] MEDS: MONTELUKAST 10 MG TABLET PO SCH (21:17)
[2018-10-18] MEDS: TAMSULOSIN 0.4 MG CAPSULE PO SCH (21:17)
[2018-10-19] MEDS: HALOPERIDOL 10 MG/5 ML UDC PO SCH ×4 (00:11→18:11)
[2018-10-19] MEDS: LORazepam 0.5 MG TABLET PO SCH ×4 (00:11→18:12)
[2018-10-19] MEDS: IPRATROPIUM/ALBUTEROL 3 ML NEB INH PRN ×3 (05:30→19:26)
[2018-10-19] MEDS: WHEAT DEXTRIN POWDER PACKET PO PRN (05:39)
[2018-10-19] MEDS: SENNA 8.6 MG TABLET PO PRN ×2 (05:39→18:15)
[2018-10-19] MEDS: buPROPion SR 150 MG TABLET PO SCH ×2 (09:05→21:26)
[2018-10-19] MEDS: NICOTINE 21 MG PATCH TOP SCH (09:05)
[2018-10-19] MEDS: risperiDONE 1 MG TABLET PO SCH ×2 (09:05→21:26)
[2018-10-19] MEDS: METHADONE 5 MG TABLET PO SCH ×3 (09:05→21:26)
[2018-10-19] MEDS ORDERED: GLYCERIN ADULT SUPP PR STA (09:48)
[2018-10-19] MEDS ORDERED: ONDANSETRON ODT 4 MG TABLET TL STA ×2 (09:48→16:35)
[2018-10-19] MEDS: POLYETHYLENE GLYCOL 3350 17 GM PACKET PO PRN (12:09)
[2018-10-19] MEDS ORDERED: MAG HYDROX/AL HYDROX/SIMETH 30 ML UDC PO STA (14:51)
[2018-10-19] MEDS: MORPHINE SOL 10 MG/0.5 ML SYRINGE PO PRN (16:53)
[2018-10-19] MEDS: TAMSULOSIN 0.4 MG CAPSULE PO SCH (21:26)
[2018-10-19] MEDS: MONTELUKAST 10 MG TABLET PO SCH (21:26)
[2018-10-20] MEDS: LORazepam 0.5 MG TABLET PO SCH ×4 (00:08→18:00)
[2018-10-20] MEDS: HALOPERIDOL 10 MG/5 ML UDC PO SCH ×4 (00:09→18:00)
[2018-10-20] MEDS: SENNA 8.6 MG TABLET PO PRN ×2 (05:56→20:44)
[2018-10-20] MEDS: POLYETHYLENE GLYCOL 3350 17 GM PACKET PO PRN (05:57)
[2018-10-20] MEDS: WHEAT DEXTRIN POWDER PACKET PO PRN (05:58)
[2018-10-20] MEDS: METHADONE 5 MG TABLET PO SCH ×3 (09:30→20:44)
[2018-10-20] MEDS: MORPHINE SOL 10 MG/0.5 ML SYRINGE PO PRN ×4 (09:30→23:09)
[2018-10-20] MEDS: buPROPion SR 150 MG TABLET PO SCH ×2 (09:30→20:44)
[2018-10-20] MEDS: NICOTINE 21 MG PATCH TOP SCH (09:30)
[2018-10-20] MEDS: risperiDONE 1 MG TABLET PO SCH ×2 (09:30→20:44)
[2018-10-20] MEDS: IPRATROPIUM/ALBUTEROL 3 ML NEB INH PRN ×2 (10:04→21:03)
[2018-10-20] MEDS: MAG HYDROX/AL HYDROX/SIMETH 30 ML UDC PO PRN (15:29)
[2018-10-20] MEDS: TAMSULOSIN 0.4 MG CAPSULE PO SCH (20:44)
[2018-10-20] MEDS: MONTELUKAST 10 MG TABLET PO SCH (20:44)
[2018-10-21] MEDS: LORazepam 0.5 MG TABLET PO SCH ×5 (00:29→23:49)
[2018-10-21] MEDS: HALOPERIDOL 10 MG/5 ML UDC PO SCH ×5 (00:33→23:49)
[2018-10-21] MEDS: MORPHINE SOL 10 MG/0.5 ML SYRINGE PO PRN ×7 (06:02→23:53)
[2018-10-21] MEDS: WHEAT DEXTRIN POWDER PACKET PO PRN (06:05)
[2018-10-21] MEDS: POLYETHYLENE GLYCOL 3350 17 GM PACKET PO PRN (06:05)
[2018-10-21] MEDS: IPRATROPIUM/ALBUTEROL 3 ML NEB INH PRN ×4 (06:31→22:19)
[2018-10-21] MEDS ORDERED: ALBUTEROL NEB 2.5 MG/3 ML INH STA (07:18)
[2018-10-21] MEDS ORDERED: MAGNESIUM CITRATE 296 ML BOTTLE PO STA (07:19)
--- NOTE | 2018-10-21 07:23 | ED Physician Documentation ---
ED Addendum - Addendum Addendum: 10/21/18 07:22 Seen at bedside this morning, complaining of a little more shortness of breath and cough productive of green sputum. Vitals are unremarkable without tachypnea or hypoxemia. Lungs are slightly rhonchorous and wheezy throughout and slightly diminished at the right base but nonlabored. Started Augmentin BID and Prednisone burst. Also C/O continued constipation and ordered mag citrate.
[2018-10-21] MEDS: buPROPion SR 150 MG TABLET PO SCH ×2 (08:05→21:03)
[2018-10-21] MEDS: METHADONE 5 MG TABLET PO SCH ×3 (08:05→21:03)
[2018-10-21] MEDS: SENNA 8.6 MG TABLET PO PRN ×2 (08:05→20:13)
[2018-10-21] MEDS: NICOTINE 21 MG PATCH TOP SCH (08:05)
[2018-10-21] MEDS: risperiDONE 1 MG TABLET PO SCH ×2 (08:05→21:03)
[2018-10-21] MEDS: AMOX/CLAV 875 MG/125 MG TABLET PO SCH ×2 (08:06→21:03)
[2018-10-21] MEDS: predniSONE 20 MG TABLET PO SCH (08:06)
[2018-10-21] MEDS: SACCHAROMYCES BOULARDII 250 MG CAPSULE PO SCH ×2 (12:19→17:52)
[2018-10-21] MEDS: LORazepam 0.5 MG TABLET PO PRN (14:53)
[2018-10-21] MEDS: MONTELUKAST 10 MG TABLET PO SCH (21:03)
[2018-10-21] MEDS: TAMSULOSIN 0.4 MG CAPSULE PO SCH (21:03)
[2018-10-22] MEDS: HALOPERIDOL 10 MG/5 ML UDC PO SCH ×2 (06:09→20:34)
[2018-10-22] MEDS: POLYETHYLENE GLYCOL 3350 17 GM PACKET PO PRN (06:10)
[2018-10-22] MEDS: SENNA 8.6 MG TABLET PO PRN (06:10)
[2018-10-22] MEDS: WHEAT DEXTRIN POWDER PACKET PO PRN (06:10)
[2018-10-22] MEDS: LORazepam 0.5 MG TABLET PO SCH ×3 (06:12→17:28)
[2018-10-22] MEDS: IPRATROPIUM/ALBUTEROL 3 ML NEB INH PRN ×3 (08:00→16:59)
[2018-10-22] MEDS: MORPHINE SOL 10 MG/0.5 ML SYRINGE PO PRN ×3 (08:12→16:11)
[2018-10-22] MEDS: NICOTINE 21 MG PATCH TOP SCH (08:12)
[2018-10-22] MEDS: risperiDONE 1 MG TABLET PO SCH ×2 (08:13→20:30)
[2018-10-22] MEDS: SACCHAROMYCES BOULARDII 250 MG CAPSULE PO SCH ×2 (08:13→17:28)
[2018-10-22] MEDS: predniSONE 20 MG TABLET PO SCH (08:13)
[2018-10-22] MEDS: LORazepam 0.5 MG TABLET PO PRN (08:13)
[2018-10-22] MEDS: buPROPion SR 150 MG TABLET PO SCH ×2 (08:13→20:30)
[2018-10-22] MEDS: METHADONE 5 MG TABLET PO SCH ×3 (08:13→20:30)
[2018-10-22] MEDS: AMOX/CLAV 875 MG/125 MG TABLET PO SCH ×2 (08:13→20:30)
[2018-10-22] MEDS: HALOPERIDOL 10 MG/5 ML UDC PO PRN (12:08)
[2018-10-22] MEDS: TAMSULOSIN 0.4 MG CAPSULE PO SCH (20:30)
[2018-10-22] MEDS: MONTELUKAST 10 MG TABLET PO SCH (20:30)
[2018-10-23] MEDS: LORazepam 0.5 MG TABLET PO SCH ×4 (06:35→17:18)
[2018-10-23] MEDS: IPRATROPIUM/ALBUTEROL 3 ML NEB INH PRN ×2 (09:02→16:07)
[2018-10-23] MEDS: buPROPion SR 150 MG TABLET PO SCH ×2 (09:26→21:00)
[2018-10-23] MEDS: NICOTINE 21 MG PATCH TOP SCH (09:26)
[2018-10-23] MEDS: SENNA 8.6 MG TABLET PO PRN (09:26)
[2018-10-23] MEDS: MORPHINE SOL 10 MG/0.5 ML SYRINGE PO PRN ×4 (09:26→20:55)
[2018-10-23] MEDS: predniSONE 20 MG TABLET PO SCH (09:27)
[2018-10-23] MEDS: METHADONE 5 MG TABLET PO SCH ×3 (09:27→20:56)
[2018-10-23] MEDS: AMOX/CLAV 875 MG/125 MG TABLET PO SCH ×2 (09:27→21:00)
[2018-10-23] MEDS: WHEAT DEXTRIN POWDER PACKET PO PRN (09:27)
[2018-10-23] MEDS: risperiDONE 1 MG TABLET PO SCH ×2 (09:27→20:57)
[2018-10-23] MEDS: POLYETHYLENE GLYCOL 3350 17 GM PACKET PO PRN (09:27)
[2018-10-23] MEDS: SACCHAROMYCES BOULARDII 250 MG CAPSULE PO SCH ×2 (09:28→17:18)
[2018-10-23] MEDS: HALOPERIDOL 10 MG/5 ML UDC PO SCH ×2 (09:28→20:55)
[2018-10-23] MEDS: IBUPROFEN 400 MG TABLET PO PRN (16:02)
[2018-10-23] MEDS: TAMSULOSIN 0.4 MG CAPSULE PO SCH (20:56)
[2018-10-23] MEDS: MONTELUKAST 10 MG TABLET PO SCH (20:56)
[2018-10-24] MEDS: LORazepam 0.5 MG TABLET PO SCH ×4 (01:00→17:40)
[2018-10-24] MEDS: NICOTINE 21 MG PATCH TOP SCH (08:40)
[2018-10-24] MEDS: predniSONE 20 MG TABLET PO SCH (08:41)
[2018-10-24] MEDS: risperiDONE 1 MG TABLET PO SCH ×2 (08:41→20:59)
[2018-10-24] MEDS: METHADONE 5 MG TABLET PO SCH ×3 (08:41→20:56)
[2018-10-24] MEDS: AMOX/CLAV 875 MG/125 MG TABLET PO SCH ×2 (08:41→20:56)
[2018-10-24] MEDS: buPROPion SR 150 MG TABLET PO SCH ×2 (08:41→21:03)
[2018-10-24] MEDS: HALOPERIDOL 10 MG/5 ML UDC PO SCH ×2 (08:42→21:00)
[2018-10-24] MEDS: SACCHAROMYCES BOULARDII 250 MG CAPSULE PO SCH ×2 (08:42→17:42)
[2018-10-24] MEDS: IPRATROPIUM/ALBUTEROL 3 ML NEB INH PRN ×2 (09:09→17:41)
[2018-10-24] MEDS: MONTELUKAST 10 MG TABLET PO SCH (20:57)
[2018-10-24] MEDS: TAMSULOSIN 0.4 MG CAPSULE PO SCH (20:58)
[2018-10-25] MEDS: LORazepam 0.5 MG TABLET PO SCH ×4 (01:19→19:05)
[2018-10-25] MEDS: IPRATROPIUM/ALBUTEROL 3 ML NEB INH PRN ×2 (07:44→15:07)
[2018-10-25] MEDS: METHADONE 5 MG TABLET PO SCH ×3 (09:21→20:58)
[2018-10-25] MEDS: buPROPion SR 150 MG TABLET PO SCH ×2 (09:21→20:58)
[2018-10-25] MEDS: NICOTINE 21 MG PATCH TOP SCH (09:21)
[2018-10-25] MEDS: risperiDONE 1 MG TABLET PO SCH ×2 (09:21→20:58)
[2018-10-25] MEDS: HALOPERIDOL 10 MG/5 ML UDC PO SCH ×2 (09:22→20:57)
[2018-10-25] MEDS: SACCHAROMYCES BOULARDII 250 MG CAPSULE PO SCH ×2 (09:22→16:08)
[2018-10-25] MEDS: AMOX/CLAV 875 MG/125 MG TABLET PO SCH ×2 (09:22→20:58)
[2018-10-25] MEDS: predniSONE 20 MG TABLET PO SCH (09:22)
[2018-10-25] MEDS ORDERED: ACETAMINOPHEN 325 MG TABLET PO STA (16:01)
[2018-10-25] MEDS: TAMSULOSIN 0.4 MG CAPSULE PO SCH (20:58)
[2018-10-25] MEDS: MONTELUKAST 10 MG TABLET PO SCH (20:58)
[2018-10-26] MEDS: LORazepam 0.5 MG TABLET PO SCH ×4 (00:15→18:06)
[2018-10-26] MEDS ORDERED: ACETAMINOPHEN 325 MG TABLET PO STA (05:27)
[2018-10-26] MEDS: IPRATROPIUM/ALBUTEROL 3 ML NEB INH PRN ×3 (07:35→19:14)
[2018-10-26] MEDS: AMOX/CLAV 875 MG/125 MG TABLET PO SCH ×2 (08:51→20:46)
[2018-10-26] MEDS: buPROPion SR 150 MG TABLET PO SCH ×2 (08:51→20:45)
[2018-10-26] MEDS: HALOPERIDOL 10 MG/5 ML UDC PO SCH ×2 (08:51→20:43)
[2018-10-26] MEDS: NICOTINE 21 MG PATCH TOP SCH (08:51)
[2018-10-26] MEDS: SACCHAROMYCES BOULARDII 250 MG CAPSULE PO SCH ×2 (08:51→18:06)
[2018-10-26] MEDS: METHADONE 5 MG TABLET PO SCH ×3 (08:51→20:45)
[2018-10-26] MEDS: predniSONE 20 MG TABLET PO SCH (08:51)
[2018-10-26] MEDS: risperiDONE 1 MG TABLET PO SCH ×2 (08:52→20:45)
[2018-10-26] MEDS: IBUPROFEN 400 MG TABLET PO PRN (10:43)
[2018-10-26] MEDS: ACETAMINOPHEN 325 MG TABLET PO PRN ×2 (15:53→20:13)
[2018-10-26] MEDS: TAMSULOSIN 0.4 MG CAPSULE PO SCH (20:44)
[2018-10-26] MEDS: MONTELUKAST 10 MG TABLET PO SCH (20:45)
[2018-10-27] MEDS: LORazepam 0.5 MG TABLET PO SCH ×4 (00:56→17:11)
[2018-10-27] MEDS: ACETAMINOPHEN 325 MG TABLET PO PRN ×2 (02:47→12:13)
[2018-10-27] MEDS ORDERED: IPRATROPIUM/ALBUTEROL 3 ML NEB INH STA (06:43)
[2018-10-27] MEDS: SENNA 8.6 MG TABLET PO PRN (08:03)
[2018-10-27] MEDS: buPROPion SR 150 MG TABLET PO SCH ×2 (08:03→20:29)
[2018-10-27] MEDS: NICOTINE 21 MG PATCH TOP SCH (08:03)
[2018-10-27] MEDS: METHADONE 5 MG TABLET PO SCH ×3 (08:04→20:30)
[2018-10-27] MEDS: AMOX/CLAV 875 MG/125 MG TABLET PO SCH ×2 (08:04→20:29)
[2018-10-27] MEDS: POLYETHYLENE GLYCOL 3350 17 GM PACKET PO PRN (08:04)
[2018-10-27] MEDS: risperiDONE 1 MG TABLET PO SCH ×2 (08:04→20:30)
[2018-10-27] MEDS: WHEAT DEXTRIN POWDER PACKET PO PRN (08:04)
[2018-10-27] MEDS: HALOPERIDOL 10 MG/5 ML UDC PO SCH ×2 (08:05→20:29)
[2018-10-27] MEDS: SACCHAROMYCES BOULARDII 250 MG CAPSULE PO SCH ×2 (08:05→17:11)
[2018-10-27] MEDS: IBUPROFEN 400 MG TABLET PO PRN ×2 (08:05→15:01)
[2018-10-27] MEDS: IPRATROPIUM/ALBUTEROL 3 ML NEB INH PRN (14:27)
[2018-10-27] MEDS: MORPHINE SOL 10 MG/0.5 ML SYRINGE PO PRN ×2 (15:01→18:04)
[2018-10-27] MEDS: LORazepam 0.5 MG TABLET PO PRN ×2 (18:04→20:41)
[2018-10-27] MEDS: TAMSULOSIN 0.4 MG CAPSULE PO SCH (20:30)
[2018-10-27] MEDS: MONTELUKAST 10 MG TABLET PO SCH (20:30)
[2018-10-28] MEDS: LORazepam 0.5 MG TABLET PO SCH ×4 (00:55→17:35)
[2018-10-28] MEDS: IBUPROFEN 400 MG TABLET PO PRN ×3 (02:41→16:35)
[2018-10-28] MEDS: ACETAMINOPHEN 325 MG TABLET PO PRN ×2 (02:41→13:10)
[2018-10-28] MEDS: MORPHINE SOL 10 MG/0.5 ML SYRINGE PO PRN ×3 (02:44→16:35)
[2018-10-28] MEDS: IPRATROPIUM/ALBUTEROL 3 ML NEB INH PRN (06:02)
--- NOTE | 2018-10-28 07:45 | ED Physician Documentation ---
ED Addendum - Addendum Addendum: 10/28/18 07:43 The patient complained of some left ear pain with little bit of drainage overnight and this morning. He is on Augmentin antibiotic currently. He states he has had some nasal congestion as well. Complains of diminished hearing in the left ear. Exam shows some scarring of the eardrums on both sides. There is no redness of the eardrums nor obvious bulging on either side. Both ear canals have some mild inflammation. There is minimal wax. The left ear canal shows a little bit of an exudate towards the outer aspect of the canal. There is no adenopathy of the neck. Does appear to have some otitis externa and we can add some Cortisporin eardrops a few times a day for the next 5 days.
[2018-10-28] MEDS: NICOTINE 21 MG PATCH TOP SCH (08:00)
[2018-10-28] MEDS: WHEAT DEXTRIN POWDER PACKET PO PRN (08:06)
[2018-10-28] MEDS: AMOX/CLAV 875 MG/125 MG TABLET PO SCH ×2 (08:06→21:00)
[2018-10-28] MEDS: NEOMYCIN/POLYMYX/HC OTIC DROPS EACHEAR SCH ×3 (08:06→21:04)
[2018-10-28] MEDS: HALOPERIDOL 10 MG/5 ML UDC PO SCH ×2 (08:06→21:00)
[2018-10-28] MEDS: SACCHAROMYCES BOULARDII 250 MG CAPSULE PO SCH ×2 (08:06→17:35)
[2018-10-28] MEDS: SENNA 8.6 MG TABLET PO PRN ×2 (08:07→21:37)
[2018-10-28] MEDS: risperiDONE 1 MG TABLET PO SCH ×2 (08:07→21:06)
[2018-10-28] MEDS: METHADONE 5 MG TABLET PO SCH ×3 (08:07→21:00)
[2018-10-28] MEDS: POLYETHYLENE GLYCOL 3350 17 GM PACKET PO PRN (08:07)
[2018-10-28] MEDS: buPROPion SR 150 MG TABLET PO SCH ×2 (08:07→21:00)
[2018-10-28] MEDS: MAG HYDROX/AL HYDROX/SIMETH 30 ML UDC PO PRN (20:25)
[2018-10-28] MEDS: MONTELUKAST 10 MG TABLET PO SCH (20:59)
[2018-10-28] MEDS: TAMSULOSIN 0.4 MG CAPSULE PO SCH (21:00)
[2018-10-29] MEDS: LORazepam 0.5 MG TABLET PO SCH ×4 (00:11→17:53)
[2018-10-29] MEDS: MORPHINE SOL 10 MG/0.5 ML SYRINGE PO PRN ×2 (04:52→15:00)
[2018-10-29] MEDS: NEOMYCIN/POLYMYX/HC OTIC DROPS EACHEAR SCH ×3 (06:03→21:14)
[2018-10-29] MEDS: risperiDONE 1 MG TABLET PO SCH ×2 (08:02→21:13)
[2018-10-29] MEDS: HALOPERIDOL 10 MG/5 ML UDC PO PRN ×2 (08:02→14:12)
[2018-10-29] MEDS: METHADONE 5 MG TABLET PO SCH ×3 (08:02→21:12)
[2018-10-29] MEDS: SENNA 8.6 MG TABLET PO PRN (08:02)
[2018-10-29] MEDS: NICOTINE 21 MG PATCH TOP SCH (08:02)
[2018-10-29] MEDS: buPROPion SR 150 MG TABLET PO SCH ×2 (08:02→21:11)
[2018-10-29] MEDS: POLYETHYLENE GLYCOL 3350 17 GM PACKET PO PRN (08:03)
[2018-10-29] MEDS: SACCHAROMYCES BOULARDII 250 MG CAPSULE PO SCH ×2 (08:03→17:54)
[2018-10-29] MEDS: ACETAMINOPHEN 325 MG TABLET PO PRN ×2 (08:03→17:54)
[2018-10-29] MEDS: HALOPERIDOL 10 MG/5 ML UDC PO SCH ×2 (08:03→21:11)
[2018-10-29] MEDS: WHEAT DEXTRIN POWDER PACKET PO PRN (08:03)
[2018-10-29] MEDS ORDERED: ONDANSETRON ODT 4 MG TABLET TL STA (09:11)
[2018-10-29] MEDS: IBUPROFEN 400 MG TABLET PO PRN (14:12)
[2018-10-29] MEDS: LORazepam 0.5 MG TABLET PO PRN (14:29)
[2018-10-29] MEDS ORDERED: LORazepam 0.5 MG TABLET PO STA (17:06)
[2018-10-29] MEDS: MONTELUKAST 10 MG TABLET PO SCH (21:13)
[2018-10-29] MEDS: TAMSULOSIN 0.4 MG CAPSULE PO SCH (21:13)
[2018-10-30] MEDS: LORazepam 0.5 MG TABLET PO SCH ×5 (00:02→23:27)
[2018-10-30] MEDS: HALOPERIDOL 10 MG/5 ML UDC PO PRN (05:10)
[2018-10-30] MEDS: IBUPROFEN 400 MG TABLET PO PRN ×2 (05:40→16:06)
[2018-10-30] MEDS: NEOMYCIN/POLYMYX/HC OTIC DROPS EACHEAR SCH ×3 (05:40→21:15)
[2018-10-30] MEDS: METHADONE 5 MG TABLET PO SCH ×3 (08:44→21:12)
[2018-10-30] MEDS: SACCHAROMYCES BOULARDII 250 MG CAPSULE PO SCH ×2 (08:44→17:46)
[2018-10-30] MEDS: risperiDONE 1 MG TABLET PO SCH ×2 (08:45→21:13)
[2018-10-30] MEDS: buPROPion SR 150 MG TABLET PO SCH ×2 (08:46→21:13)
[2018-10-30] MEDS: NICOTINE 21 MG PATCH TOP SCH (08:46)
[2018-10-30] MEDS: IPRATROPIUM/ALBUTEROL 3 ML NEB INH PRN (09:43)
[2018-10-30] MEDS: HALOPERIDOL 10 MG/5 ML UDC PO SCH ×2 (14:08→21:14)
[2018-10-30] MEDS: MORPHINE SOL 10 MG/0.5 ML SYRINGE PO PRN ×2 (14:09→18:03)
--- NOTE | 2018-10-30 14:39 | ED Physician Documentation ---
ED Addendum - Addendum Addendum: 10/30/18 14:37 Took A call from the office of his chiropractor. Briefly they wondered if he could come in and do massage therapy or chiropractic. I discussed this with the chief psychology, Dr. Ballesteros and we agree that probably medical care could not be performed by this chiropractor given that he is not on staff, but he would be welcome to come in and talk with the patient and support the patient's personally if he so chooses. This was relayed to his office. Otherwise time he has been stable today walking around the department and appearing well without specific complaints other than chronic back pain.
[2018-10-30] MEDS: LORazepam 0.5 MG TABLET PO PRN (16:06)
[2018-10-30] MEDS: POLYETHYLENE GLYCOL 3350 17 GM PACKET PO PRN (17:46)
[2018-10-30] MEDS: WHEAT DEXTRIN POWDER PACKET PO PRN (18:04)
[2018-10-30] MEDS: MONTELUKAST 10 MG TABLET PO SCH (21:13)
[2018-10-30] MEDS: TAMSULOSIN 0.4 MG CAPSULE PO SCH (21:14)
[2018-10-31] MEDS: MORPHINE SOL 10 MG/0.5 ML SYRINGE PO PRN ×6 (03:32→23:19)
[2018-10-31] MEDS: LORazepam 0.5 MG TABLET PO SCH ×3 (05:44→17:47)
[2018-10-31] MEDS: NEOMYCIN/POLYMYX/HC OTIC DROPS EACHEAR SCH ×3 (05:44→22:00)
[2018-10-31] MEDS: IBUPROFEN 400 MG TABLET PO PRN ×2 (05:44→12:31)
[2018-10-31] MEDS: WHEAT DEXTRIN POWDER PACKET PO PRN ×2 (07:45→09:17)
[2018-10-31] MEDS: IPRATROPIUM/ALBUTEROL 3 ML NEB INH PRN (08:46)
[2018-10-31] MEDS: SENNA 8.6 MG TABLET PO PRN (09:16)
[2018-10-31] MEDS: POLYETHYLENE GLYCOL 3350 17 GM PACKET PO PRN (09:17)
[2018-10-31] MEDS: buPROPion SR 150 MG TABLET PO SCH ×2 (09:17→21:00)
[2018-10-31] MEDS: risperiDONE 1 MG TABLET PO SCH ×2 (09:17→21:11)
[2018-10-31] MEDS: NICOTINE 21 MG PATCH TOP SCH (09:17)
[2018-10-31] MEDS: METHADONE 5 MG TABLET PO SCH ×3 (09:17→21:13)
[2018-10-31] MEDS: HALOPERIDOL 10 MG/5 ML UDC PO SCH ×2 (09:19→21:10)
[2018-10-31] MEDS: ACETAMINOPHEN 325 MG TABLET PO PRN ×2 (09:19→14:35)
[2018-10-31] MEDS: SACCHAROMYCES BOULARDII 250 MG CAPSULE PO SCH ×2 (09:19→17:48)
[2018-10-31] MEDS ORDERED: IPRATROPIUM/ALBUTEROL 3 ML NEB INH STA (11:48)
[2018-10-31] MEDS: HALOPERIDOL 10 MG/5 ML UDC PO PRN ×2 (12:29→17:48)
[2018-10-31] MEDS: LORazepam 0.5 MG TABLET PO PRN (14:36)
[2018-10-31] MEDS: MAG HYDROX/AL HYDROX/SIMETH 30 ML UDC PO PRN (19:01)
[2018-10-31] MEDS: MONTELUKAST 10 MG TABLET PO SCH (21:11)
[2018-10-31] MEDS: TAMSULOSIN 0.4 MG CAPSULE PO SCH (21:13)
[2018-11-01] MEDS: LORazepam 0.5 MG TABLET PO SCH ×4 (00:07→17:57)
[2018-11-01] MEDS: IPRATROPIUM/ALBUTEROL 3 ML NEB INH PRN ×3 (03:54→17:23)
[2018-11-01] MEDS: MORPHINE SOL 10 MG/0.5 ML SYRINGE PO PRN ×2 (04:33→19:40)
[2018-11-01] MEDS: NEOMYCIN/POLYMYX/HC OTIC DROPS EACHEAR SCH ×3 (06:06→22:02)
[2018-11-01] MEDS: METHADONE 5 MG TABLET PO SCH ×3 (09:19→20:29)
[2018-11-01] MEDS: HALOPERIDOL 10 MG/5 ML UDC PO SCH (09:19)
[2018-11-01] MEDS: buPROPion SR 150 MG TABLET PO SCH ×2 (09:19→20:29)
[2018-11-01] MEDS: NICOTINE 21 MG PATCH TOP SCH (09:19)
[2018-11-01] MEDS: SACCHAROMYCES BOULARDII 250 MG CAPSULE PO SCH ×2 (09:19→17:58)
[2018-11-01] MEDS: risperiDONE 1 MG TABLET PO SCH ×2 (09:19→20:28)
[2018-11-01] MEDS: WHEAT DEXTRIN POWDER PACKET PO PRN (10:45)
[2018-11-01] MEDS ORDERED: MAGNESIUM HYDROXIDE 2,400 MG/30 ML UDC PO PRN (11:08)
[2018-11-01] MEDS: IBUPROFEN 400 MG TABLET PO PRN (11:29)
[2018-11-01] MEDS: ACETAMINOPHEN 325 MG TABLET PO PRN (11:29)
[2018-11-01] MEDS: SENNA 8.6 MG TABLET PO SCH ×2 (11:30→20:28)
[2018-11-01] MEDS: TAMSULOSIN 0.4 MG CAPSULE PO SCH (20:28)
[2018-11-01] MEDS: MONTELUKAST 10 MG TABLET PO SCH (20:28)
[2018-11-01] MEDS: LORazepam 0.5 MG TABLET PO PRN (21:14)
[2018-11-02] MEDS: IPRATROPIUM/ALBUTEROL 3 ML NEB INH PRN ×3 (03:58→22:39)
[2018-11-02] MEDS ORDERED: AZITHROMYCIN 250 MG TABLET PO STA (04:30)
[2018-11-02] MEDS: MORPHINE SOL 10 MG/0.5 ML SYRINGE PO PRN ×5 (04:39→18:30)
[2018-11-02] MEDS: BENZONATATE 100 MG CAPSULE PO PRN (06:30)
[2018-11-02] MEDS: LORazepam 0.5 MG TABLET PO SCH ×4 (06:30→18:32)
[2018-11-02] MEDS: NEOMYCIN/POLYMYX/HC OTIC DROPS EACHEAR SCH (06:35)
[2018-11-02] MEDS: POLYETHYLENE GLYCOL 3350 17 GM PACKET PO PRN (06:51)
[2018-11-02] MEDS: NICOTINE 21 MG PATCH TOP SCH (08:13)
[2018-11-02] MEDS: buPROPion SR 150 MG TABLET PO SCH ×2 (08:14→20:37)
[2018-11-02] MEDS: risperiDONE 1 MG TABLET PO SCH ×2 (08:14→20:38)
[2018-11-02] MEDS: METHADONE 5 MG TABLET PO SCH ×3 (08:14→20:37)
[2018-11-02] MEDS: SACCHAROMYCES BOULARDII 250 MG CAPSULE PO SCH ×2 (08:14→18:30)
[2018-11-02] MEDS: SENNA 8.6 MG TABLET PO SCH ×2 (09:07→20:39)
[2018-11-02] MEDS: ACETAMINOPHEN 325 MG TABLET PO PRN (12:30)
[2018-11-02] MEDS: TAMSULOSIN 0.4 MG CAPSULE PO SCH (20:38)
[2018-11-02] MEDS: MONTELUKAST 10 MG TABLET PO SCH (20:38)
[2018-11-03] MEDS: LORazepam 0.5 MG TABLET PO SCH ×4 (00:15→18:54)
[2018-11-03] MEDS: MORPHINE SOL 10 MG/0.5 ML SYRINGE PO PRN ×3 (06:37→18:54)
[2018-11-03] MEDS: SENNA 8.6 MG TABLET PO SCH ×2 (08:48→20:36)
[2018-11-03] MEDS: METHADONE 5 MG TABLET PO SCH ×3 (08:48→20:37)
[2018-11-03] MEDS: risperiDONE 1 MG TABLET PO SCH ×2 (08:48→20:36)
[2018-11-03] MEDS: buPROPion SR 150 MG TABLET PO SCH ×2 (08:48→20:36)
[2018-11-03] MEDS: SACCHAROMYCES BOULARDII 250 MG CAPSULE PO SCH ×2 (08:48→17:04)
[2018-11-03] MEDS: AZITHROMYCIN 250 MG TABLET PO SCH (08:48)
[2018-11-03] MEDS: NICOTINE 21 MG PATCH TOP SCH (08:48)
[2018-11-03] MEDS: MAG HYDROX/AL HYDROX/SIMETH 30 ML UDC PO PRN (08:49)
[2018-11-03] MEDS: IPRATROPIUM/ALBUTEROL 3 ML NEB INH PRN (10:42)
[2018-11-03] MEDS: IBUPROFEN 400 MG TABLET PO PRN (13:30)
[2018-11-03] MEDS: BENZONATATE 100 MG CAPSULE PO PRN (20:36)
[2018-11-03] MEDS: TAMSULOSIN 0.4 MG CAPSULE PO SCH (20:36)
[2018-11-03] MEDS: MONTELUKAST 10 MG TABLET PO SCH (20:36)
[2018-11-04] MEDS: LORazepam 0.5 MG TABLET PO SCH ×4 (00:20→20:12)
[2018-11-04] MEDS: MORPHINE SOL 10 MG/0.5 ML SYRINGE PO PRN ×4 (03:48→22:20)
[2018-11-04] MEDS: LORazepam 0.5 MG TABLET PO PRN (04:17)
[2018-11-04] MEDS: IBUPROFEN 400 MG TABLET PO PRN ×2 (05:51→18:34)
[2018-11-04] MEDS: IPRATROPIUM/ALBUTEROL 3 ML NEB INH PRN ×2 (09:00→19:35)
[2018-11-04] MEDS: buPROPion SR 150 MG TABLET PO SCH ×2 (09:02→20:13)
[2018-11-04] MEDS: METHADONE 5 MG TABLET PO SCH ×3 (09:02→20:14)
[2018-11-04] MEDS: NICOTINE 21 MG PATCH TOP SCH (09:02)
[2018-11-04] MEDS: SACCHAROMYCES BOULARDII 250 MG CAPSULE PO SCH ×2 (09:02→18:22)
[2018-11-04] MEDS: risperiDONE 1 MG TABLET PO SCH ×2 (09:02→20:14)
[2018-11-04] MEDS: AZITHROMYCIN 250 MG TABLET PO SCH (09:02)
[2018-11-04] MEDS: SENNA 8.6 MG TABLET PO SCH ×2 (09:03→20:15)
--- NOTE | 2018-11-04 09:25 | ED Physician Documentation ---
ED Addendum - Addendum Addendum: I evaluated patient at 9: 20, he is having some increased abdominal pain in his epigastric region which is not been responsive to a GI cocktail. He does have some tenderness in the epigastric region, and somewhat diffusely. His last bowel movement was 3 days ago. He has nausea but no vomiting. He has baseline shortness of breath, his lungs are clear to auscultation bilaterally. His vital signs are unremarkable. We will order labs as well as a chest x-ray. Labs are unremarkable including normal troponin. EKG shows sinus rhythm with rate of 84, incomplete RBBB and LAFB, no signs of ischemia. CXR shows bibasilar atelectasis. I do not see an emergent cause of his symptoms and patient is feeling better on re-eval, tolerating PO. We will continue to monitor and work on placement. 11/04/18 09:24 11/04/18 21:25 11/04/18 21:28
[2018-11-04 10:16] LABS: BASOPHILS % (AUTO) 0.2 %; EOSINOPHILS # (AUTO) 0.2 10^3/uL (0.0-0.7); EOSINOPHILS % (AUTO) 1.9 %; HGB - HEMOGLOBIN 12.4 g/dL (14.0-18.0); LYMPHOCYTES # (AUTO) 1.9 10^3/uL (1.5-3.5); LYMPHOCYTES % (AUTO) 19.3 %; MEAN CORPUSCULAR HEMOGLOBIN 29.2 pg (27.0-31.0); MEAN CORPUSCULAR VOLUME 91.3 fL (80.0-94.0); MEAN PLATELET VOLUME 9.1 fL (7.4-11.4); NEUTROPHILS # (AUTO) 6.6 10^3/uL (1.5-6.6); PLT - PLATELET COUNT 286 10^3/uL (130-450); RED BLOOD COUNT 4.25 10^6/uL (4.70-6.10); RED CELL DISTRIBUTION WIDTH 15.1 % (12.0-15.0); WHITE BLOOD COUNT 9.7 x10^3/uL (4.8-10.8)
[2018-11-04 10:30] LABS: ALBUMIN 3.9 g/dL (3.2-5.5); ALBUMIN/GLOBULIN RATIO 1.4 (1.0-2.2); BILIRUBIN,TOTAL 0.7 mg/dL (0.2-1.0); CALCIUM 9.7 mg/dL (8.5-10.3); CREATININE 0.6 mg/dL (0.6-1.2); TOTAL PROTEIN 6.6 g/dL (6.7-8.2)
--- NOTE | 2018-11-04 10:36 | XRAY Report ---
Reason: cough Procedure Date: 11/04/2018 Accession Number: [id number] / [id number] Procedure: XR - Chest 2 View X-Ray CPT Code: 80821 FULL RESULT: EXAM: CHEST RADIOGRAPHY EXAM DATE: 11/04/2018 10:06 AM. CLINICAL HISTORY: Cough. COMPARISON: CHEST 1 VIEW 09/28/2018 12:58 AM CHEST ANGIO 04/04/2015 8:45 AM ABDOMEN/PELVIS W/ 09/28/2018 2:33 AM. TECHNIQUE: 2 views. FINDINGS: Lungs/Pleura: Mild bibasal opacity, atelectasis or infiltrate. Pulmonary hyperinflation suggests COPD. No significant pleural effusion or evidence of pneumothorax. Mediastinum: Heart and mediastinal contours are unremarkable. Aortic calcifications are present. Other: None. IMPRESSION: 1. Mild bibasal opacity, atelectasis or infiltrate. 2. Pulmonary hyperinflation suggests COPD. RADIA
[2018-11-04 10:37] LABS: TROPONIN I < 0.04 ng/mL (<0.49)
[2018-11-04] MEDS ORDERED: BISACODYL 10 MG SUPP PR STA (15:35)
[2018-11-04] MEDS ORDERED: BISACODYL 10 MG SUPP PR PRN (18:22)
[2018-11-04] MEDS: BENZONATATE 100 MG CAPSULE PO PRN (18:34)
[2018-11-04] MEDS: HALOPERIDOL 10 MG/5 ML UDC PO PRN (19:37)
[2018-11-04] MEDS: MONTELUKAST 10 MG TABLET PO SCH (20:14)
[2018-11-04] MEDS: TAMSULOSIN 0.4 MG CAPSULE PO SCH (20:16)
[2018-11-04] MEDS: POLYETHYLENE GLYCOL 3350 17 GM PACKET PO PRN (20:17)
[2018-11-05] MEDS: LORazepam 0.5 MG TABLET PO SCH ×3 (02:31→21:48)
[2018-11-05] MEDS: MORPHINE SOL 10 MG/0.5 ML SYRINGE PO PRN ×6 (02:32→22:05)
[2018-11-05] MEDS: LORazepam 0.5 MG TABLET PO PRN ×2 (05:59→10:20)
[2018-11-05] MEDS: IPRATROPIUM/ALBUTEROL 3 ML NEB INH PRN ×2 (07:27→16:30)
[2018-11-05] MEDS: risperiDONE 1 MG TABLET PO SCH ×2 (08:49→21:30)
[2018-11-05] MEDS: AZITHROMYCIN 250 MG TABLET PO SCH (08:49)
[2018-11-05] MEDS: SACCHAROMYCES BOULARDII 250 MG CAPSULE PO SCH ×2 (08:49→17:53)
[2018-11-05] MEDS: METHADONE 5 MG TABLET PO SCH ×3 (08:49→21:29)
[2018-11-05] MEDS: DOCUSATE SODIUM 100 MG CAPSULE PO SCH ×2 (08:49→21:30)
[2018-11-05] MEDS: buPROPion SR 150 MG TABLET PO SCH ×2 (08:49→21:29)
[2018-11-05] MEDS: NICOTINE 21 MG PATCH TOP SCH (08:49)
[2018-11-05] MEDS: SENNA 8.6 MG TABLET PO SCH ×2 (08:49→21:30)
[2018-11-05] MEDS: IBUPROFEN 400 MG TABLET PO PRN (10:19)
[2018-11-05] MEDS: MAG HYDROX/AL HYDROX/SIMETH 30 ML UDC PO PRN (14:23)
[2018-11-05] MEDS: ACETAMINOPHEN 325 MG TABLET PO PRN (14:23)
[2018-11-05] MEDS: MONTELUKAST 10 MG TABLET PO SCH (21:29)
[2018-11-05] MEDS: TAMSULOSIN 0.4 MG CAPSULE PO SCH (21:30)
[2018-11-05] MEDS: BENZONATATE 100 MG CAPSULE PO PRN (21:51)
[2018-11-06] MEDS: IPRATROPIUM/ALBUTEROL 3 ML NEB INH PRN ×3 (04:19→16:17)
[2018-11-06] MEDS: MORPHINE SOL 10 MG/0.5 ML SYRINGE PO PRN ×4 (04:37→21:38)
[2018-11-06] MEDS: IBUPROFEN 400 MG TABLET PO PRN ×2 (05:44→15:14)
[2018-11-06] MEDS: LORazepam 0.5 MG TABLET PO SCH ×3 (05:45→21:38)
[2018-11-06] MEDS: risperiDONE 1 MG TABLET PO SCH ×2 (09:33→20:31)
[2018-11-06] MEDS: SENNA 8.6 MG TABLET PO SCH ×2 (09:33→20:30)
[2018-11-06] MEDS: NICOTINE 21 MG PATCH TOP SCH (09:33)
[2018-11-06] MEDS: MAGNESIUM HYDROXIDE 2,400 MG/30 ML UDC PO PRN (09:33)
[2018-11-06] MEDS: SACCHAROMYCES BOULARDII 250 MG CAPSULE PO SCH ×2 (09:34→18:15)
[2018-11-06] MEDS: AZITHROMYCIN 250 MG TABLET PO SCH (09:34)
[2018-11-06] MEDS: METHADONE 5 MG TABLET PO SCH ×3 (09:34→20:31)
[2018-11-06] MEDS: DOCUSATE SODIUM 100 MG CAPSULE PO SCH ×2 (09:34→20:33)
[2018-11-06] MEDS: buPROPion SR 150 MG TABLET PO SCH ×2 (09:34→20:33)
[2018-11-06] MEDS: ACETAMINOPHEN 325 MG TABLET PO PRN ×2 (09:34→18:14)
[2018-11-06] MEDS: LORazepam 0.5 MG TABLET PO PRN ×2 (09:35→18:14)
[2018-11-06] MEDS: POLYETHYLENE GLYCOL 3350 17 GM PACKET PO PRN (15:14)
[2018-11-06] MEDS: TAMSULOSIN 0.4 MG CAPSULE PO SCH (20:31)
[2018-11-06] MEDS: MONTELUKAST 10 MG TABLET PO SCH (20:34)
[2018-11-07] MEDS: IBUPROFEN 400 MG TABLET PO PRN (01:29)
[2018-11-07] MEDS: MORPHINE SOL 10 MG/0.5 ML SYRINGE PO PRN ×4 (01:30→17:58)
[2018-11-07] MEDS: LORazepam 0.5 MG TABLET PO SCH ×3 (06:31→21:37)
[2018-11-07] MEDS: ACETAMINOPHEN 325 MG TABLET PO PRN (06:34)
[2018-11-07] MEDS: DOCUSATE SODIUM 100 MG CAPSULE PO SCH ×2 (08:27→20:45)
[2018-11-07] MEDS: NICOTINE 21 MG PATCH TOP SCH (08:27)
[2018-11-07] MEDS: METHADONE 5 MG TABLET PO SCH ×3 (08:27→20:44)
[2018-11-07] MEDS: SACCHAROMYCES BOULARDII 250 MG CAPSULE PO SCH ×2 (08:27→17:48)
[2018-11-07] MEDS: buPROPion SR 150 MG TABLET PO SCH ×2 (08:27→20:44)
[2018-11-07] MEDS: risperiDONE 1 MG TABLET PO SCH ×2 (08:29→20:44)
[2018-11-07] MEDS: SENNA 8.6 MG TABLET PO SCH ×2 (10:09→20:44)
[2018-11-07] MEDS: LORazepam 0.5 MG TABLET PO PRN ×2 (10:10→19:53)
[2018-11-07] MEDS: IPRATROPIUM/ALBUTEROL 3 ML NEB INH PRN (20:17)
[2018-11-07] MEDS: MONTELUKAST 10 MG TABLET PO SCH (20:44)
[2018-11-07] MEDS: TAMSULOSIN 0.4 MG CAPSULE PO SCH (20:44)
[2018-11-08] MEDS: IBUPROFEN 400 MG TABLET PO PRN (01:36)
[2018-11-08] MEDS: LORazepam 0.5 MG TABLET PO SCH ×3 (06:18→23:22)
[2018-11-08] MEDS: IPRATROPIUM/ALBUTEROL 3 ML NEB INH PRN (08:00)
[2018-11-08] MEDS: risperiDONE 1 MG TABLET PO SCH ×2 (09:26→20:16)
[2018-11-08] MEDS: SENNA 8.6 MG TABLET PO SCH ×2 (09:26→20:15)
[2018-11-08] MEDS: buPROPion SR 150 MG TABLET PO SCH ×2 (09:26→20:16)
[2018-11-08] MEDS: DOCUSATE SODIUM 100 MG CAPSULE PO SCH ×2 (09:26→20:16)
[2018-11-08] MEDS: METHADONE 5 MG TABLET PO SCH ×3 (09:26→20:15)
[2018-11-08] MEDS: NICOTINE 21 MG PATCH TOP SCH (09:26)
[2018-11-08] MEDS: MORPHINE SOL 10 MG/0.5 ML SYRINGE PO PRN ×4 (09:26→20:14)
[2018-11-08] MEDS: SACCHAROMYCES BOULARDII 250 MG CAPSULE PO SCH ×2 (09:26→19:46)
[2018-11-08] MEDS: LORazepam 0.5 MG TABLET PO PRN ×2 (16:05→20:16)
[2018-11-08] MEDS: MONTELUKAST 10 MG TABLET PO SCH (20:15)
[2018-11-08] MEDS: TAMSULOSIN 0.4 MG CAPSULE PO SCH (20:15)
[2018-11-09] MEDS: IBUPROFEN 400 MG TABLET PO PRN ×2 (02:55→13:14)
[2018-11-09] MEDS: LORazepam 0.5 MG TABLET PO PRN ×2 (04:14→14:52)
[2018-11-09] MEDS: LORazepam 0.5 MG TABLET PO SCH ×3 (08:10→22:02)
[2018-11-09] MEDS: SENNA 8.6 MG TABLET PO SCH ×2 (08:10→20:33)
[2018-11-09] MEDS: SACCHAROMYCES BOULARDII 250 MG CAPSULE PO SCH ×2 (08:10→19:37)
[2018-11-09] MEDS: METHADONE 5 MG TABLET PO SCH ×3 (08:10→20:32)
[2018-11-09] MEDS: risperiDONE 1 MG TABLET PO SCH ×2 (08:10→20:33)
[2018-11-09] MEDS: buPROPion SR 150 MG TABLET PO SCH ×2 (08:10→20:32)
[2018-11-09] MEDS: DOCUSATE SODIUM 100 MG CAPSULE PO SCH ×2 (08:10→20:32)
[2018-11-09] MEDS: IPRATROPIUM/ALBUTEROL 3 ML NEB INH PRN ×2 (10:17→17:48)
[2018-11-09] MEDS ORDERED: NICOTINE 14 MG PATCH TOP STA (12:54)
[2018-11-09] MEDS: ACETAMINOPHEN 325 MG TABLET PO PRN (13:14)
[2018-11-09] MEDS: NICOTINE 14 MG PATCH TOP SCH (13:14)
[2018-11-09] MEDS: MORPHINE SOL 10 MG/0.5 ML SYRINGE PO PRN ×2 (13:47→17:42)
[2018-11-09] MEDS: HALOPERIDOL 10 MG/5 ML UDC PO PRN (14:52)
[2018-11-09] MEDS: MONTELUKAST 10 MG TABLET PO SCH (20:33)
[2018-11-09] MEDS: TAMSULOSIN 0.4 MG CAPSULE PO SCH (20:34)
[2018-11-10] MEDS: HALOPERIDOL 10 MG/5 ML UDC PO PRN ×2 (02:03→20:32)
[2018-11-10] MEDS: LORazepam 0.5 MG TABLET PO SCH ×3 (07:12→23:20)
[2018-11-10] MEDS: DOCUSATE SODIUM 100 MG CAPSULE PO SCH ×2 (08:27→20:31)
[2018-11-10] MEDS: risperiDONE 1 MG TABLET PO SCH ×2 (08:27→20:31)
[2018-11-10] MEDS: METHADONE 5 MG TABLET PO SCH ×3 (08:27→20:31)
[2018-11-10] MEDS: SENNA 8.6 MG TABLET PO SCH ×2 (08:27→20:31)
[2018-11-10] MEDS: buPROPion SR 150 MG TABLET PO SCH ×2 (08:27→20:31)
[2018-11-10] MEDS: NICOTINE 14 MG PATCH TOP SCH (08:27)
[2018-11-10] MEDS: SACCHAROMYCES BOULARDII 250 MG CAPSULE PO SCH ×2 (08:27→16:50)
[2018-11-10] MEDS: MORPHINE SOL 10 MG/0.5 ML SYRINGE PO PRN ×2 (10:18→17:07)
[2018-11-10] MEDS: IPRATROPIUM/ALBUTEROL 3 ML NEB INH PRN (10:42)
[2018-11-10] MEDS: LORazepam 0.5 MG TABLET PO PRN ×2 (11:28→17:56)
[2018-11-10] MEDS: MONTELUKAST 10 MG TABLET PO SCH (20:31)
[2018-11-10] MEDS: TAMSULOSIN 0.4 MG CAPSULE PO SCH (20:31)
[2018-11-11] MEDS: HALOPERIDOL 10 MG/5 ML UDC PO PRN ×5 (00:24→21:15)
[2018-11-11] MEDS: IBUPROFEN 400 MG TABLET PO PRN ×2 (03:47→21:45)
[2018-11-11] MEDS: LORazepam 0.5 MG TABLET PO PRN ×2 (03:47→11:50)
[2018-11-11] MEDS: LORazepam 0.5 MG TABLET PO SCH ×2 (06:45→18:55)
[2018-11-11] MEDS: SENNA 8.6 MG TABLET PO SCH (08:45)
[2018-11-11] MEDS: SACCHAROMYCES BOULARDII 250 MG CAPSULE PO SCH ×2 (09:02→18:55)
[2018-11-11] MEDS: IPRATROPIUM/ALBUTEROL 3 ML NEB INH PRN ×3 (09:02→20:25)
[2018-11-11] MEDS: buPROPion SR 150 MG TABLET PO SCH (09:03)
[2018-11-11] MEDS: MORPHINE SOL 10 MG/0.5 ML SYRINGE PO PRN ×3 (09:04→18:54)
[2018-11-11] MEDS: ACETAMINOPHEN 325 MG TABLET PO PRN (09:04)
[2018-11-11] MEDS: NICOTINE 14 MG PATCH TOP SCH (09:04)
[2018-11-11] MEDS: risperiDONE 1 MG TABLET PO SCH (09:04)
[2018-11-11] MEDS: DOCUSATE SODIUM 100 MG CAPSULE PO SCH (09:04)
[2018-11-11] MEDS: METHADONE 5 MG TABLET PO SCH ×2 (09:04→12:56)
[2018-11-12] MEDS: DOCUSATE SODIUM 100 MG CAPSULE PO SCH ×3 (00:53→21:02)
[2018-11-12] MEDS: METHADONE 5 MG TABLET PO SCH ×4 (00:53→21:03)
[2018-11-12] MEDS: SENNA 8.6 MG TABLET PO SCH ×3 (00:53→21:04)
[2018-11-12] MEDS: risperiDONE 1 MG TABLET PO SCH ×3 (00:53→21:03)
[2018-11-12] MEDS: TAMSULOSIN 0.4 MG CAPSULE PO SCH ×2 (00:53→21:04)
[2018-11-12] MEDS: buPROPion SR 150 MG TABLET PO SCH ×3 (00:53→21:01)
[2018-11-12] MEDS: LORazepam 0.5 MG TABLET PO SCH ×4 (00:53→21:04)
[2018-11-12] MEDS: MONTELUKAST 10 MG TABLET PO SCH ×2 (00:53→21:03)
[2018-11-12] MEDS: HALOPERIDOL 10 MG/5 ML UDC PO PRN ×3 (02:02→16:41)
[2018-11-12] MEDS: MORPHINE SOL 10 MG/0.5 ML SYRINGE PO PRN ×2 (02:02→10:04)
[2018-11-12] MEDS: IPRATROPIUM/ALBUTEROL 3 ML NEB INH PRN (05:27)
[2018-11-12] MEDS: SACCHAROMYCES BOULARDII 250 MG CAPSULE PO SCH ×2 (09:45→19:21)
[2018-11-12] MEDS: POLYETHYLENE GLYCOL 3350 17 GM PACKET PO PRN (10:04)
[2018-11-12] MEDS: NICOTINE 14 MG PATCH TOP SCH (10:04)
[2018-11-12] MEDS: IBUPROFEN 400 MG TABLET PO PRN (16:42)
[2018-11-12] MEDS: ACETAMINOPHEN 325 MG TABLET PO PRN (18:07)
[2018-11-12] MEDS ORDERED: HALOPERIDOL 1 MG TABLET PO SCH (21:00)
[2018-11-12] MEDS: HALOPERIDOL 0.5 MG TABLET PO SCH (21:02)
[2018-11-13] MEDS: LORazepam 0.5 MG TABLET PO SCH ×3 (07:06→21:13)
[2018-11-13] MEDS: IPRATROPIUM/ALBUTEROL 3 ML NEB INH PRN (07:50)
[2018-11-13] MEDS: SACCHAROMYCES BOULARDII 250 MG CAPSULE PO SCH ×2 (08:43→17:39)
[2018-11-13] MEDS: METHADONE 5 MG TABLET PO SCH ×3 (08:43→21:07)
[2018-11-13] MEDS: DOCUSATE SODIUM 100 MG CAPSULE PO SCH ×2 (08:43→21:07)
[2018-11-13] MEDS: risperiDONE 1 MG TABLET PO SCH ×2 (08:43→21:08)
[2018-11-13] MEDS: buPROPion SR 150 MG TABLET PO SCH ×2 (08:43→21:07)
[2018-11-13] MEDS: NICOTINE 14 MG PATCH TOP SCH (08:43)
[2018-11-13] MEDS: FLUTICASONE NASAL SPRAY NAS SCH (08:43)
[2018-11-13] MEDS: SENNA 8.6 MG TABLET PO SCH ×2 (08:44→21:08)
[2018-11-13] MEDS: SENNA 8.6 MG TABLET PO PRN (13:38)
[2018-11-13] MEDS: MORPHINE SOL 10 MG/0.5 ML SYRINGE PO PRN (13:38)
[2018-11-13] MEDS: POLYETHYLENE GLYCOL 3350 17 GM PACKET PO PRN (13:39)
[2018-11-13] MEDS: HALOPERIDOL 0.5 MG TABLET PO SCH (21:07)
[2018-11-13] MEDS: MONTELUKAST 10 MG TABLET PO SCH (21:08)
[2018-11-13] MEDS: TAMSULOSIN 0.4 MG CAPSULE PO SCH (21:09)
[2018-11-14] MEDS: IBUPROFEN 400 MG TABLET PO PRN (05:45)
[2018-11-14] MEDS: LORazepam 0.5 MG TABLET PO SCH ×3 (05:45→22:31)
[2018-11-14] MEDS: SACCHAROMYCES BOULARDII 250 MG CAPSULE PO SCH ×2 (07:55→17:01)
[2018-11-14] MEDS: IPRATROPIUM/ALBUTEROL 3 ML NEB INH PRN (08:00)
[2018-11-14] MEDS: buPROPion SR 150 MG TABLET PO SCH ×2 (09:21→21:00)
[2018-11-14] MEDS: SENNA 8.6 MG TABLET PO SCH ×2 (09:21→21:00)
[2018-11-14] MEDS: DOCUSATE SODIUM 100 MG CAPSULE PO SCH ×2 (09:21→21:00)
[2018-11-14] MEDS: METHADONE 5 MG TABLET PO SCH ×3 (09:22→21:00)
[2018-11-14] MEDS: NICOTINE 14 MG PATCH TOP SCH (09:23)
[2018-11-14] MEDS: FLUTICASONE NASAL SPRAY NAS SCH (09:24)
[2018-11-14] MEDS: risperiDONE 1 MG TABLET PO SCH ×2 (09:25→21:00)
[2018-11-14] MEDS: MORPHINE SOL 10 MG/0.5 ML SYRINGE PO PRN (13:37)
[2018-11-14] MEDS: TAMSULOSIN 0.4 MG CAPSULE PO SCH (21:00)
[2018-11-14] MEDS: MONTELUKAST 10 MG TABLET PO SCH (21:00)
[2018-11-14] MEDS: HALOPERIDOL 0.5 MG TABLET PO SCH (21:00)
[2018-11-15] MEDS: MAG HYDROX/AL HYDROX/SIMETH 30 ML UDC PO PRN (05:18)
[2018-11-15] MEDS: LORazepam 0.5 MG TABLET PO SCH (06:08)
[2018-11-15] MEDS: DOCUSATE SODIUM 100 MG CAPSULE PO SCH ×2 (09:00→20:55)
[2018-11-15] MEDS: FLUTICASONE NASAL SPRAY NAS SCH (09:00)
[2018-11-15] MEDS: SACCHAROMYCES BOULARDII 250 MG CAPSULE PO SCH (09:00)
[2018-11-15] MEDS: buPROPion SR 150 MG TABLET PO SCH ×2 (09:00→20:55)
[2018-11-15] MEDS: SENNA 8.6 MG TABLET PO SCH ×2 (09:01→20:55)
[2018-11-15] MEDS: NICOTINE 14 MG PATCH TOP SCH (09:01)
[2018-11-15] MEDS: METHADONE 5 MG TABLET PO SCH ×2 (09:01→20:55)
[2018-11-15] MEDS: risperiDONE 1 MG TABLET PO SCH ×2 (09:01→20:55)
[2018-11-15] MEDS: MORPHINE SOL 10 MG/0.5 ML SYRINGE PO PRN ×2 (13:40→19:04)
[2018-11-15] MEDS: HALOPERIDOL 0.5 MG TABLET PO SCH (20:55)
[2018-11-15] MEDS: MONTELUKAST 10 MG TABLET PO SCH (20:55)
[2018-11-15] MEDS: TAMSULOSIN 0.4 MG CAPSULE PO SCH (20:55)
[2018-11-16] MEDS: LORazepam 0.5 MG TABLET PO SCH ×5 (05:21→22:42)
[2018-11-16] MEDS: SENNA 8.6 MG TABLET PO SCH ×2 (08:55→20:42)
[2018-11-16] MEDS: risperiDONE 1 MG TABLET PO SCH ×2 (08:55→20:42)
[2018-11-16] MEDS: SACCHAROMYCES BOULARDII 250 MG CAPSULE PO SCH ×3 (08:55→16:57)
[2018-11-16] MEDS: buPROPion SR 150 MG TABLET PO SCH ×2 (08:55→20:42)
[2018-11-16] MEDS: METHADONE 5 MG TABLET PO SCH ×4 (08:55→20:42)
[2018-11-16] MEDS: NICOTINE 14 MG PATCH TOP SCH (08:55)
[2018-11-16] MEDS: FLUTICASONE NASAL SPRAY NAS SCH (08:55)
[2018-11-16] MEDS: DOCUSATE SODIUM 100 MG CAPSULE PO SCH ×2 (08:55→20:42)
[2018-11-16] MEDS: POLYETHYLENE GLYCOL 3350 17 GM PACKET PO PRN (08:55)
[2018-11-16] MEDS: MORPHINE SOL 10 MG/0.5 ML SYRINGE PO PRN (08:55)
[2018-11-16] MEDS: IPRATROPIUM/ALBUTEROL 3 ML NEB INH PRN (10:45)
--- NOTE | 2018-11-16 13:40 | ED Physician Documentation ---
ED Addendum - Addendum Addendum: 11/16/18 13:39 The patient was complaining of some discomfort at the great toe corners. Evaluation showed him to be a bit ingrown without any signs of redness or infection. I was able to trim out the corners using a scissor and bone rongeur without any complications or bleeding. The patient otherwise is maintaining his status quo with regular daily medications and no problems at all over the last several days with review of nursing notes. Apparently social work is still attempting placement periodically. Unclear of the timeline for disposition.
[2018-11-16] MEDS: ACETAMINOPHEN 325 MG TABLET PO PRN (16:58)
[2018-11-16] MEDS: MONTELUKAST 10 MG TABLET PO SCH (20:42)
[2018-11-16] MEDS: TAMSULOSIN 0.4 MG CAPSULE PO SCH (20:42)
[2018-11-16] MEDS: HALOPERIDOL 0.5 MG TABLET PO SCH (20:42)
[2018-11-17] MEDS: LORazepam 0.5 MG TABLET PO SCH ×3 (05:55→21:31)
[2018-11-17] MEDS: IPRATROPIUM/ALBUTEROL 3 ML NEB INH PRN (06:16)
[2018-11-17] MEDS: DOCUSATE SODIUM 100 MG CAPSULE PO SCH ×2 (09:00→20:29)
[2018-11-17] MEDS: risperiDONE 1 MG TABLET PO SCH ×2 (09:00→20:29)
[2018-11-17] MEDS: FLUTICASONE NASAL SPRAY NAS SCH (09:00)
[2018-11-17] MEDS: buPROPion SR 150 MG TABLET PO SCH ×2 (09:00→20:29)
[2018-11-17] MEDS: SENNA 8.6 MG TABLET PO SCH ×2 (09:00→20:29)
[2018-11-17] MEDS: NICOTINE 14 MG PATCH TOP SCH (09:00)
[2018-11-17] MEDS: METHADONE 5 MG TABLET PO SCH ×3 (09:00→20:29)
[2018-11-17] MEDS: SACCHAROMYCES BOULARDII 250 MG CAPSULE PO SCH ×2 (09:00→18:56)
[2018-11-17] MEDS: LORazepam 0.5 MG TABLET PO PRN (15:22)
[2018-11-17] MEDS: HALOPERIDOL 0.5 MG TABLET PO SCH (20:29)
[2018-11-17] MEDS: TAMSULOSIN 0.4 MG CAPSULE PO SCH (20:30)
[2018-11-17] MEDS: MONTELUKAST 10 MG TABLET PO SCH (21:31)
[2018-11-17] MEDS: MAG HYDROX/AL HYDROX/SIMETH 30 ML UDC PO PRN (23:22)
[2018-11-18] MEDS: IPRATROPIUM/ALBUTEROL 3 ML NEB INH PRN ×2 (06:21→14:20)
[2018-11-18] MEDS: LORazepam 0.5 MG TABLET PO SCH ×3 (06:55→20:43)
[2018-11-18] MEDS: HALOPERIDOL 10 MG/5 ML UDC PO PRN (07:04)
[2018-11-18] MEDS: NICOTINE 14 MG PATCH TOP SCH (09:03)
[2018-11-18] MEDS: SENNA 8.6 MG TABLET PO SCH ×2 (09:03→20:43)
[2018-11-18] MEDS: METHADONE 5 MG TABLET PO SCH ×3 (09:03→20:43)
[2018-11-18] MEDS: SACCHAROMYCES BOULARDII 250 MG CAPSULE PO SCH ×2 (09:03→17:29)
[2018-11-18] MEDS: DOCUSATE SODIUM 100 MG CAPSULE PO SCH ×2 (09:03→20:42)
[2018-11-18] MEDS: risperiDONE 1 MG TABLET PO SCH ×2 (09:03→20:43)
[2018-11-18] MEDS: buPROPion SR 150 MG TABLET PO SCH ×2 (09:03→20:42)
[2018-11-18] MEDS: FLUTICASONE NASAL SPRAY NAS SCH (09:34)
[2018-11-18] MEDS: LORazepam 0.5 MG TABLET PO PRN ×2 (09:34→17:30)
[2018-11-18] MEDS: SENNA 8.6 MG TABLET PO PRN (11:56)
[2018-11-18] MEDS: POLYETHYLENE GLYCOL 3350 17 GM PACKET PO PRN (11:56)
[2018-11-18] MEDS: IBUPROFEN 400 MG TABLET PO PRN (13:14)
[2018-11-18] MEDS: ACETAMINOPHEN 325 MG TABLET PO PRN (17:30)
[2018-11-18] MEDS: HALOPERIDOL 0.5 MG TABLET PO SCH (20:42)
[2018-11-18] MEDS: TAMSULOSIN 0.4 MG CAPSULE PO SCH (20:43)
[2018-11-18] MEDS: MONTELUKAST 10 MG TABLET PO SCH (20:43)
[2018-11-19] MEDS: LORazepam 0.5 MG TABLET PO SCH ×3 (06:22→22:01)
[2018-11-19] MEDS: HALOPERIDOL 10 MG/5 ML UDC PO PRN (07:00)
[2018-11-19] MEDS: MAGNESIUM HYDROXIDE 2,400 MG/30 ML UDC PO PRN (10:28)
[2018-11-19] MEDS: METHADONE 5 MG TABLET PO SCH ×3 (10:29→22:01)
[2018-11-19] MEDS: risperiDONE 1 MG TABLET PO SCH ×2 (10:29→22:02)
[2018-11-19] MEDS: DOCUSATE SODIUM 100 MG CAPSULE PO SCH ×2 (10:29→22:02)
[2018-11-19] MEDS: NICOTINE 14 MG PATCH TOP SCH (10:29)
[2018-11-19] MEDS: SENNA 8.6 MG TABLET PO SCH ×2 (10:29→22:02)
[2018-11-19] MEDS: FLUTICASONE NASAL SPRAY NAS SCH (10:29)
[2018-11-19] MEDS: buPROPion SR 150 MG TABLET PO SCH ×2 (10:30→22:03)
[2018-11-19] MEDS: SACCHAROMYCES BOULARDII 250 MG CAPSULE PO SCH ×2 (10:30→18:59)
[2018-11-19] MEDS: LORazepam 0.5 MG TABLET PO PRN ×2 (11:46→18:59)
[2018-11-19] MEDS: MAG HYDROX/AL HYDROX/SIMETH 30 ML UDC PO PRN (21:21)
[2018-11-19] MEDS: IPRATROPIUM/ALBUTEROL 3 ML NEB INH PRN (21:28)
[2018-11-19] MEDS: HALOPERIDOL 0.5 MG TABLET PO SCH (22:01)
[2018-11-19] MEDS: TAMSULOSIN 0.4 MG CAPSULE PO SCH (22:02)
[2018-11-19] MEDS: MONTELUKAST 10 MG TABLET PO SCH (22:02)
[2018-11-20] MEDS: LORazepam 0.5 MG TABLET PO SCH ×3 (06:21→22:15)
[2018-11-20] MEDS: SACCHAROMYCES BOULARDII 250 MG CAPSULE PO SCH ×2 (09:10→17:32)
[2018-11-20] MEDS: risperiDONE 1 MG TABLET PO SCH ×2 (09:10→21:03)
[2018-11-20] MEDS: buPROPion SR 150 MG TABLET PO SCH ×2 (09:10→21:02)
[2018-11-20] MEDS: NICOTINE 14 MG PATCH TOP SCH (09:10)
[2018-11-20] MEDS: DOCUSATE SODIUM 100 MG CAPSULE PO SCH ×2 (09:10→21:02)
[2018-11-20] MEDS: FLUTICASONE NASAL SPRAY NAS SCH (09:10)
[2018-11-20] MEDS: SENNA 8.6 MG TABLET PO SCH ×2 (09:10→21:02)
[2018-11-20] MEDS: METHADONE 5 MG TABLET PO SCH ×3 (09:10→21:03)
[2018-11-20] MEDS: LORazepam 0.5 MG TABLET PO PRN ×2 (12:51→17:40)
[2018-11-20] MEDS: HALOPERIDOL 10 MG/5 ML UDC PO PRN ×2 (12:51→17:40)
[2018-11-20] MEDS: IBUPROFEN 400 MG TABLET PO PRN (17:32)
[2018-11-20] MEDS: MAG HYDROX/AL HYDROX/SIMETH 30 ML UDC PO PRN (20:25)
[2018-11-20] MEDS: TAMSULOSIN 0.4 MG CAPSULE PO SCH (21:00)
[2018-11-20] MEDS: HALOPERIDOL 0.5 MG TABLET PO SCH (21:01)
[2018-11-20] MEDS: MONTELUKAST 10 MG TABLET PO SCH (21:03)
[2018-11-21] MEDS: HALOPERIDOL 10 MG/5 ML UDC PO PRN ×3 (01:11→18:21)
[2018-11-21] MEDS: LORazepam 0.5 MG TABLET PO PRN ×3 (01:43→16:16)
[2018-11-21] MEDS: LORazepam 0.5 MG TABLET PO SCH ×3 (06:30→22:00)
[2018-11-21] MEDS: SACCHAROMYCES BOULARDII 250 MG CAPSULE PO SCH ×2 (08:15→17:36)
[2018-11-21] MEDS: DOCUSATE SODIUM 100 MG CAPSULE PO SCH ×2 (09:49→22:01)
[2018-11-21] MEDS: FLUTICASONE NASAL SPRAY NAS SCH (09:49)
[2018-11-21] MEDS: buPROPion SR 150 MG TABLET PO SCH ×2 (09:49→22:00)
[2018-11-21] MEDS: METHADONE 5 MG TABLET PO SCH ×3 (09:49→22:02)
[2018-11-21] MEDS: NICOTINE 14 MG PATCH TOP SCH (09:50)
[2018-11-21] MEDS: risperiDONE 1 MG TABLET PO SCH ×2 (09:50→21:59)
[2018-11-21] MEDS: SENNA 8.6 MG TABLET PO SCH ×2 (09:50→22:01)
--- NOTE | 2018-11-21 18:44 | ED Physician Documentation ---
History of Present Illness - Stated complaint Stated Complaint: SOA - Chief complaint Chief Complaint: Resp PD PAST MEDICAL HISTORY - Past Medical History Past Medical History: Yes Cardiovascular: High cholesterol, Arrhythmia Respiratory: COPD, Shortness of breath Neuro: TIA Endocrine/Autoimmune: None GI: None : None HEENT: Chronic sinusitis Psych: Depression, Anxiety Musculoskeletal: Chronic back pain, Other Derm: None Other Past Medical History: COPD - Past Surgical History Past Surgical History: Yes - Present Medications Home Medications: Ambulatory Orders Medication Instructions Recorded Confirmed Tamsulosin [Flomax] 0.4 mg PO 199905/09/17 09/21/18 Amitriptyline HCl 100 mg PO 199904/18/18 09/21/18 Bupropion HCl [Bupropion HCl Sr] 150 mg PO 08,199909/21/18 09/21/18 Haloperidol 1 mg PO Q4H PRN 09/21/18 09/21/18 Haloperidol 2 mg PO Q4H 09/21/18 09/21/18 LORazepam [Lorazepam] 1 mg PO 1200,1600,1999,09/21/18 09/21/18 LORazepam [Lorazepam] 1 mg PO Q2H PRN 09/21/18 09/21/18 Methadone 10 mg PO 1200 09/21/18 09/21/18 Methadone 15 mg PO 08,199909/21/18 09/21/18 Sennosides [Senna] 17.2 mg PO BID PRN 09/21/18 09/21/18 guaiFENesin [Mucinex] 600 mg PO 0800 09/21/18 09/21/18 Docusate Sodium [Colace Clear] 100 mg PO BID #120 capsule 11/21/18 Fluticasone [Flonase] 1 sprays RANJAN BID #1 bottle 11/21/18 Haloperidol 2 mg PO QPM #30 tablet 11/21/18 Ibuprofen 400 mg PO QID PRN #120 tablet 11/21/18 Ipratropium/Albuterol [Duoneb] 3 ml INH Q4H PRN #90 neb 11/21/18 Lorazepam [Ativan] 1 mg PO Q4H PRN #100 tablet 11/21/18 Methadone 10 mg PO 1300 #60 tablet 11/21/18 Methadone 15 mg PO Q8H #180 tablet 11/21/18 Montelukast [Singulair] 10 mg PO QPM #30 tablet 11/21/18 Morphine Sulfate 2 mg PO Q2H PRN #100 ml 11/21/18 Nicotine 14 mg Patch [Nicoderm] 1 each TOP Q24H #30 patch 11/21/18 Tamsulosin HCl [Flomax] 0.4 mg PO DAILY #30 capsule 11/21/18 buPROPion [Wellbutrin Sr] 150 mg PO BID #60 tablet 11/21/18 risperiDONE [Risperdal] 1 mg PO BID #60 tablet 11/21/18 - Allergies Allergies/Adverse Reactions: Allergies Allergy/AdvReac Type Severity Reaction Status Date / Time No Known Drug Allergies Allergy Verified 09/27/18 23:56 - Social History Does the pt smoke?: Yes Smoking Status: Current every day smoker Does the pt drink ETOH?: No Does the pt have substance abuse?: No - Immunizations Immunizations are current?: Yes - POLST Patient has POLST: Yes POLST Status: DNR Results - Vitals Vitals: Vital Signs - 24 hr 11/20/18 11/21/18 11/21/18 20:30 09:47 14:07 Temperature 37.0 C Heart Rate 81 81 82 Respiratory 18 24 16 Rate Blood Pressure 113/70 109/70 O2 Saturation 98 98 Oxygen O2 Source Nasal cannula Oxygen Flow Rate 2 - Labs Labs: Laboratory Tests 09/28/18 09/28/18 09/28/18 01:00 01:00 02:20 WBC 6.9 RBC 4.31 L Hgb 12.6 L Hct 39.0 L MCV 90.5 MCH 29.2 MCHC 32.3 RDW 13.3 Plt Count 325 MPV 9.1 Neut # (Auto) 4.7 Lymph # (Auto) 1.2 L Kendall # (Auto) 0.9 Eos # (Auto) 0.1 Baso # (Auto) 0.0 Absolute Nucleated RBC 0.00 Nucleated RBC % 0.0 Sodium 136 Potassium 3.8 Chloride 100 L Carbon Dioxide 25 Anion Gap 11.0 BUN 8 Creatinine 0.7 Estimated GFR (MDRD) 115 Glucose 129 H Calcium 9.1 Magnesium 1.8 Total Bilirubin 0.5 AST 17 ALT 18 Alkaline Phosphatase 48 Troponin I Troponin I High Sens Total Protein 6.5 L Albumin 3.4 Globulin 3.1 Albumin/Globulin Ratio 1.1 Lipase 18 L Urine Color YELLOW Urine Clarity CLEAR Urine pH 7.0 Ur Specific Vale 1.010 Urine Protein NEGATIVE Urine Glucose (UA) NEGATIVE Urine Ketones NEGATIVE Urine Occult Blood NEGATIVE Urine Nitrite NEGATIVE Urine Bilirubin NEGATIVE Urine Urobilinogen 0.2 (NORMAL) Ur Leukocyte Esterase NEGATIVE Ur Microscopic Review NOT INDICATED Urine Culture Comments NOT INDICATED 11/04/18 11/04/18 11/04/18 10:10 10:10 10:10 WBC 9.7 RBC 4.25 L Hgb 12.4 L Hct 38.8 L MCV 91.3 MCH 29.2 MCHC 32.0 RDW 15.1 H Plt Count 286 MPV 9.1 Neut # (Auto) 6.6 Lymph # (Auto) 1.9 Kendall # (Auto) 1.0 Eos # (Auto) 0.2 Baso # (Auto) 0.0 Absolute Nucleated RBC 0.00 Nucleated RBC % 0.0 Sodium 141 Potassium 4.4 Chloride 100 L Carbon Dioxide 27 Anion Gap 14.0 H BUN 19 Creatinine 0.6 Estimated GFR (MDRD) 137 Glucose 103 H Calcium 9.7 Magnesium Total Bilirubin 0.7 AST 15 ALT 20 Alkaline Phosphatase 39 L Troponin I < 0.04 Troponin I High Sens 3.9 Total Protein 6.6 L Albumin 3.9 Globulin 2.7 Albumin/Globulin Ratio 1.4 Lipase 18 L Urine Color Urine Clarity Urine pH Ur Specific Vale Urine Protein Urine Glucose (UA) Urine Ketones Urine Occult Blood Urine Nitrite Urine Bilirubin Urine Urobilinogen Ur Leukocyte Esterase Ur Microscopic Review Urine Culture Comments PD MEDICAL DECISION MAKING - ED course Complexity details: d/w sap solution manager consultant ED course: The medical social consultant advised me that a facility has accepted the patient, and transfer is planned for tomorrow. They request that prescriptions be faxed to a pharmacy in [place]. I agreed to write prescriptions for initial treatment based on the medications he has been getting here over the past several weeks. I confirmed that his care will be picked up by a prescribing provider at the facilities where he will be undergoing his care. Departure - Departure Clinical Impression: End stage COPD, End of life care, Left sided abdominal pain, Anxiety, Inability to return to living situation Condition: Stable Prescriptions: buPROPion [Wellbutrin Sr] 150 mg PO BID #60 tablet Docusate Sodium [Colace Clear] 100 mg PO BID #120 capsule Fluticasone [Flonase] 1 sprays RANJAN BID #1 bottle Haloperidol 2 mg PO QPM #30 tablet Ibuprofen 400 mg PO QID PRN #120 tablet PRN Reason: Pain Ipratropium/Albuterol [Duoneb] 3 ml INH Q4H PRN #90 neb PRN Reason: Dyspnea Lorazepam [Ativan] 1 mg PO Q4H PRN #100 tablet PRN Reason: Anxiety Methadone 15 mg PO Q8H #180 tablet Methadone 10 mg PO 1300 #60 tablet Montelukast [Singulair] 10 mg PO QPM #30 tablet Morphine Sulfate 2 mg PO Q2H PRN #100 ml PRN Reason: Dyspnea Nicotine 14 mg Patch [Nicoderm] 1 each TOP Q24H #30 patch risperiDONE [Risperdal] 1 mg PO BID #60 tablet Tamsulosin HCl [Flomax] 0.4 mg PO DAILY #30 capsule
[2018-11-21] MEDS: MAG HYDROX/AL HYDROX/SIMETH 30 ML UDC PO PRN (19:09)
[2018-11-21] MEDS: IPRATROPIUM/ALBUTEROL 3 ML NEB INH PRN (22:00)
[2018-11-21] MEDS: MONTELUKAST 10 MG TABLET PO SCH (22:01)
[2018-11-21] MEDS: TAMSULOSIN 0.4 MG CAPSULE PO SCH (22:01)
[2018-11-21] MEDS: HALOPERIDOL 0.5 MG TABLET PO SCH (22:02)
[2018-11-22] MEDS: LORazepam 0.5 MG TABLET PO SCH ×3 (06:56→20:52)
[2018-11-22] MEDS: buPROPion SR 150 MG TABLET PO SCH ×2 (08:36→20:47)
[2018-11-22] MEDS: DOCUSATE SODIUM 100 MG CAPSULE PO SCH ×2 (08:36→20:47)
[2018-11-22] MEDS: SACCHAROMYCES BOULARDII 250 MG CAPSULE PO SCH ×2 (08:36→16:54)
[2018-11-22] MEDS: FLUTICASONE NASAL SPRAY NAS SCH (08:37)
[2018-11-22] MEDS: NICOTINE 14 MG PATCH TOP SCH (08:38)
[2018-11-22] MEDS: risperiDONE 1 MG TABLET PO SCH ×2 (08:38→20:46)
[2018-11-22] MEDS: METHADONE 5 MG TABLET PO SCH ×3 (08:38→20:47)
[2018-11-22] MEDS: SENNA 8.6 MG TABLET PO SCH ×2 (08:39→20:47)
[2018-11-22] MEDS: LORazepam 0.5 MG TABLET PO PRN (09:24)
[2018-11-22] MEDS: IPRATROPIUM/ALBUTEROL 3 ML NEB INH PRN (11:06)
[2018-11-22] MEDS: HALOPERIDOL 10 MG/5 ML UDC PO PRN ×2 (11:52→16:53)
[2018-11-22] MEDS: HALOPERIDOL 0.5 MG TABLET PO SCH (20:46)
[2018-11-22] MEDS: MONTELUKAST 10 MG TABLET PO SCH (20:47)
[2018-11-22] MEDS: TAMSULOSIN 0.4 MG CAPSULE PO SCH (20:47)
[2018-11-23] MEDS: buPROPion SR 150 MG TABLET PO SCH ×2 (08:29→21:35)
[2018-11-23] MEDS: SACCHAROMYCES BOULARDII 250 MG CAPSULE PO SCH ×2 (08:30→17:09)
[2018-11-23] MEDS: METHADONE 5 MG TABLET PO SCH ×3 (08:30→21:36)
[2018-11-23] MEDS: risperiDONE 1 MG TABLET PO SCH ×2 (08:30→21:35)
[2018-11-23] MEDS: IBUPROFEN 400 MG TABLET PO PRN (08:30)
[2018-11-23] MEDS: FLUTICASONE NASAL SPRAY NAS SCH (08:31)
[2018-11-23] MEDS: LORazepam 0.5 MG TABLET PO SCH ×3 (08:31→21:36)
[2018-11-23] MEDS: SENNA 8.6 MG TABLET PO SCH ×2 (08:31→21:36)
[2018-11-23] MEDS: DOCUSATE SODIUM 100 MG CAPSULE PO SCH ×2 (08:31→21:35)
[2018-11-23] MEDS: NICOTINE 14 MG PATCH TOP SCH (08:38)
[2018-11-23] MEDS: LORazepam 0.5 MG TABLET PO PRN (10:05)
[2018-11-23] MEDS: HALOPERIDOL 10 MG/5 ML UDC PO PRN ×3 (10:05→21:37)
[2018-11-23] MEDS: MORPHINE SOL 10 MG/0.5 ML SYRINGE PO PRN (17:09)
[2018-11-23] MEDS: TAMSULOSIN 0.4 MG CAPSULE PO SCH (21:35)
[2018-11-23] MEDS: MONTELUKAST 10 MG TABLET PO SCH (21:36)
[2018-11-23] MEDS: HALOPERIDOL 0.5 MG TABLET PO SCH (21:42)
[2018-11-24] MEDS: LORazepam 0.5 MG TABLET PO SCH ×3 (06:40→22:00)
[2018-11-24] MEDS: METHADONE 5 MG TABLET PO SCH ×3 (08:44→21:25)
[2018-11-24] MEDS: buPROPion SR 150 MG TABLET PO SCH ×2 (08:44→21:25)
[2018-11-24] MEDS: risperiDONE 1 MG TABLET PO SCH ×2 (08:44→21:26)
[2018-11-24] MEDS: SACCHAROMYCES BOULARDII 250 MG CAPSULE PO SCH (08:45)
[2018-11-24] MEDS: ACETAMINOPHEN 325 MG TABLET PO PRN (08:45)
[2018-11-24] MEDS: FLUTICASONE NASAL SPRAY NAS SCH (08:46)
[2018-11-24] MEDS: SENNA 8.6 MG TABLET PO SCH ×2 (08:46→21:26)
[2018-11-24] MEDS: DOCUSATE SODIUM 100 MG CAPSULE PO SCH ×2 (08:46→21:26)
[2018-11-24] MEDS: NICOTINE 14 MG PATCH TOP SCH (08:46)
[2018-11-24] MEDS: LORazepam 0.5 MG TABLET PO PRN (11:06)
[2018-11-24] MEDS: TAMSULOSIN 0.4 MG CAPSULE PO SCH (21:26)
[2018-11-24] MEDS: HALOPERIDOL 0.5 MG TABLET PO SCH (21:26)
[2018-11-24] MEDS: MONTELUKAST 10 MG TABLET PO SCH (21:26)
[2018-11-24] MEDS: HALOPERIDOL 10 MG/5 ML UDC PO PRN (23:51)
[2018-11-25] MEDS: LORazepam 0.5 MG TABLET PO PRN ×2 (01:43→10:08)
[2018-11-25] MEDS: LORazepam 0.5 MG TABLET PO SCH ×2 (06:27→13:07)
[2018-11-25] MEDS: SACCHAROMYCES BOULARDII 250 MG CAPSULE PO SCH (09:21)
[2018-11-25] MEDS: DOCUSATE SODIUM 100 MG CAPSULE PO SCH (09:22)
[2018-11-25] MEDS: buPROPion SR 150 MG TABLET PO SCH (09:22)
[2018-11-25] MEDS: risperiDONE 1 MG TABLET PO SCH (09:23)
[2018-11-25] MEDS: METHADONE 5 MG TABLET PO SCH ×2 (09:23→13:08)
[2018-11-25] MEDS: NICOTINE 14 MG PATCH TOP SCH (09:23)
[2018-11-25] MEDS: SENNA 8.6 MG TABLET PO SCH (09:23)
[2018-11-25] MEDS: FLUTICASONE NASAL SPRAY NAS SCH (09:23)
[2018-11-25] MEDS: HALOPERIDOL 10 MG/5 ML UDC PO PRN ×2 (10:07→14:11)
[2018-11-25 10:10] VITALS: BP 128/78
[2018-11-25] MEDS: ACETAMINOPHEN 325 MG TABLET PO PRN (13:08)
--- NOTE | 2018-11-25 13:55 | ED Physician Documentation ---
ED Addendum - Addendum Addendum: 11/25/18 13:54 Placement has finally been found for the patient and he is being discharged today to go to the assisted care facility. Prescriptions previously had been written for him. No new problems since the prior note. The patient is discharged in stable condition. Discharge diagnoses: 1. Inability for proper self-care #2 COPD #3 mild dementia #4 anxiety Disposition: discharged to home, stable
[2018-11-25] MEDS: IPRATROPIUM/ALBUTEROL 3 ML NEB INH PRN (14:07)
--- NOTE | 2018-11-25 14:34 | ED Physician Documentation ---
ED Addendum - Addendum Addendum: 11/25/18 15:50 The patient does have history of significant COPD and has been doing well on his regular nebulizer treatments here. He had been under hospice care for COPD but has been released from hospice. He does need to continue his regular medications and nebulizer treatments. He has been calm and treated well with his antidepressants and anti-psychotic medicines without any recent problems. You should be continued regularly as well. Departure - Departure Disposition: 01 Home, Self Care Clinical Impression: End stage COPD, End of life care, Left sided abdominal pain, Anxiety, Inability to return to living situation Condition: Stable Prescriptions: Acetaminophen [Tylenol] 650 mg PO Q6H PRN #100 tablet PRN Reason: PRN PAIN &/OR FEVER buPROPion [Wellbutrin Sr] 150 mg PO BID #60 tablet Docusate Sodium [Colace Clear] 100 mg PO BID #120 capsule Fluticasone [Flonase] 1 sprays RANJAN BID #1 bottle Haloperidol [Haldol] 2 mg PO Q6H PRN #40 tablet PRN Reason: Anxiety Haloperidol 2 mg PO QPM #30 tablet Ibuprofen 400 mg PO QID PRN #120 tablet PRN Reason: Pain Ipratropium/Albuterol [Duoneb] 3 ml INH Q4H PRN #90 neb PRN Reason: Dyspnea Lorazepam [Ativan] 1 mg PO Q4H PRN #100 tablet PRN Reason: Anxiety LORazepam [Ativan] 1 mg PO Q8H #90 tablet Methadone HCl 15 mg PO TID #135 tablet Montelukast [Singulair] 10 mg PO QPM #30 tablet Nebulizer [Aeroneb Go Nebulizer] 1 each MC QID #1 each Nicotine 14 mg Patch [Nicoderm] 1 each TOP Q24H #30 patch Polyethylene Glycol 3350 [Miralax] 17 gm PO DAILY PRN #1 bottle PRN Reason: Constipation risperiDONE [Risperdal] 1 mg PO BID #60 tablet Sennosides [Senna] 17.2 mg PO BID PRN #120 tablet PRN Reason: Constipation Tamsulosin HCl [Flomax] 0.4 mg PO DAILY #30 capsule Discharge Date/Time: 11/25/18 14:49
== END 2018-11-25 14:49 | disposition home or self-care (01) ==
LOC: EEVIPCON 23:46 → ED 23:46
DX: J44.9 Chronic obstructive pulmonary disease, unspecified (principal); F03.90 Unspecified dementia, unspecified severity, without behavioral disturbance, psychotic disturbance, mood disturbance, and anxiety; F41.9 Anxiety disorder, unspecified; R10.32 Left lower quadrant pain; R45.1 Restlessness and agitation; R11.0 Nausea; K59.00 Constipation, unspecified; H60.92 Unspecified otitis externa, left ear; L60.0 Ingrowing nail; R10.13 Epigastric pain; F17.200 Nicotine dependence, unspecified, uncomplicated; Z75.1 Person awaiting admission to adequate facility elsewhere; Z74.9 Problem related to care provider dependency, unspecified; Z66 Do not resuscitate
CPT/HCPCS: 36415; 71045; 71046; 74177; 80053; 81003; 83690; 83735; 84484; 85025; 93005; 94640; 94761; A9270; J2060; J7512; J7626; Q0162; Q9967; 81001; 87086